=== PATIENT | female | born 1965 | race Caucasian/White ===

== ENCOUNTER → 2017-11-11 12:59 | Outpatient (CLI) | payer OTHER, MEDICAID, SELFPAY ==
--- NOTE | 2017-11-11 | DI.RAD.S_ITS ---
PROCEDURE: XR RIBS LT MIN 3V W CXR1V INDICATIONS: LEFT RIB PAIN/TRAUMA TECHNIQUE: 2 views of the left ribs were acquired, along with a single view chest. COMPARISON: None. FINDINGS: Surgical changes and devices: None. BB marker is present over the left lower rib cage. Bones and chest wall: No fractures or dislocations. No suspicious bony lesions. Overlying soft tissues appear unremarkable. Left L1 transverse process as articulating. Lungs and pleura: No pleural effusions or pneumothorax. Lungs appear clear. Mediastinum: Mediastinal contours appear normal. Heart size is normal. IMPRESSION: No displaced rib fractures. No apparent sequelae of any occult fracture. Dictated by: Aram Xie M.D. on 11/11/2017 at 13:30 Approved by: Aram Xie M.D. on 11/11/2017 at 13:33
== END ==
PROVIDERS: Family Provider Family Medicine; PCP Family Medicine; Visit Provider Family Medicine
DX: R07.81 Pleurodynia (principal)
CPT/HCPCS: 71101

== ENCOUNTER 2018-01-25 04:44 | Emergency (ER) | payer OTHER, MEDICAID, SELFPAY ==
[2018-01-25 04:49] VITALS: BP 158/67; PULSE 62; RESP 16; TEMP 36.3; O2SAT 100; BMI 23.5
--- NOTE | 2018-01-25 04:58 | DI.RAD.S_ITS ---
PROCEDURE: XR ANKLE RT MIN 3V INDICATIONS: fall pain 2 days ago TECHNIQUE: 3 views of the ankle were acquired. COMPARISON: None. FINDINGS: Bones: No acute fractures or dislocations. Ankle mortise is normally aligned. No suspicious bony lesions. Prominent dorsal beaking of the navicular is noted. There are old healed fractures in the distal one third of the tibial and fibular diaphyses, the tibial fracture also containing punctate radiodensities. Soft tissues: No tibiotalar joint effusion. Achilles tendon appears normal. IMPRESSION: No acute fracture. Dictated by: Aram Xie M.D. on 01/25/2018 at 8:19 Approved by: Aram Xie M.D. on 01/25/2018 at 8:22
--- NOTE | 2018-01-25 05:18 | ED_ITS ---
HPI - Extremity Injury (Lower) General Chief Complaint: Extremity Injury, Lower Stated Complaint: Right ankle pain, slipped on stairs Time Seen by Provider: 01/25/18 04:54 Source: patient Mode of arrival: ambulatory Limitations: no limitations History of Present Illness HPI Narrative: Patient is a 52-year-old female who presents with right ankle pain. She says she injured it on some stairs he it was actually dragged and she scraped it. She did not roll it or trip or fall. His she has been ambulatory on it. This evening she felt like she needed to crack she heard a pop she feels like it is more swollen. She denies any worsening numbness or tingling in her foot. She has chronic back problems and has issues with her feet at baseline. She is ambulatory tonight as well. MD complaint: ankle injury Severity: mild Relieving factors: nothing Related Data Home Medications Medication Instructions Recorded Confirmed levothyroxine [Synthroid] 75 mcg PO QAM #0 05/31/11 tizanidine 4 mg PO TIDP PRN #0 10/06/16 cholecalciferol (vitamin D3) 2,000 iu PO QDAY #0 10/15/16 [Vitamin D3] Previous Rx's Medication Instructions Recorded hydrocodone-acetaminophen [[place]] 1 - 2 tab PO Q4HP PRN #60 tab 10/15/16 hydroxyzine pamoate [Vistaril] 25 mg PO Q6HP PRN #20 cap 10/15/16 naproxen [Naprosyn] 500 mg PO BID #60 tab 10/15/16 cephalexin [Keflex] 500 mg PO Q6H 7 Days #0 cap 01/22/17 prednisone 40 mg PO AMCC 4 Days #0 tab 01/22/17 Allergies Allergy/AdvReac Type Severity Reaction Status Date / Time wool [WOOL] Allergy Intermediate HIVES Verified 01/25/18 04:55 green pepper [GREEN PEPPER] AdvReac Severe burping Verified 01/25/18 04:55 morphine [MORPHINE] AdvReac Severe VOMITING, Verified 01/25/18 04:55 MY BODY ADDICTS TO VERY QUICKLY Review of Systems Review of Systems GENERAL: Denies chills,fever HEENT: Denies throat pain RESPIRATORY: Denies dyspnea, cough, wheezing CARDIOVASCULAR: Denies chest pain, palpitations GASTROINTESTINAL: Denies nausea, vomiting MUSCULOSKELETAL: See HPI SKIN: No rash, no laceration, no pruritus NEUROLOGIC: Denies weakness, dizziness, headache, numbness 8 point review of systems is negative except for those stated above and HPI [facility] Medical History Healthy adult (Acute) Social History Smoking Status: Former smoker Exam Initial Vital Signs Initial Vital Signs: Vital Signs Temperature 97.4 F L 01/25/18 04:49 Pulse Rate 62 01/25/18 04:49 Respiratory Rate 16 01/25/18 04:49 Blood Pressure 158/67 H 01/25/18 04:49 Pulse Oximetry 100 01/25/18 04:49 GENERAL: Well-appearing, well-nourished and in no acute distress. CARDIOVASCULAR: peripheral pulses in tact, cap refill <2 sec RESPIRATORY: No respiratory distress, speaks in full sentences without difficulty EXTREMITIES: Normal range of motion, no clubbing or edema. Neurovascularly intact The right lower extremity: Tattoos are noted no gross bony deformities. No swelling appreciated. Able flex and extend without any difficulty. Pain medially about 3 cm superior malleoli. Distal pedal pulse intact NEUROLOGICAL: Cranial nerves II through XII grossly intact. Normal gait and speech. SKIN: Warm, dry, no petechiae, no rashes or lesions. Course Orders Ordered: ED Orders 01/25/18 04:58 XR ankle RT min 3V Stat Vital Signs - 8 hr 01/25/18 04:49 Temperature 97.4 F L Pulse Rate 62 Respiratory Rate 16 Blood Pressure 158/67 H Pulse Oximetry 100 MDM - Extremity Injury (Lower) Imaging Data Right ankle x-ray: My impression: No acute process no fracture identified Discharge Plan Departure Patient Disposition: Home, Self-Care Clinical Impression: Mild sprain of right ankle Discharge Date/Time: 01/25/18 05:29 Interventions: ED Discharge Assessment Last Done: 01/25/18 05:29 Instructions: Ankle Sprain Activity Restrictions/Additional Instructions: *You have been diagnosed with right ankle sprain *What to do: Increase activity as tolerated, ice 20 min at a time if needed to help with swelling, elevated *Continue to take medications as directed Ibuprofen 600 mg every 6 hr if needed for pain *Follow up with your primary care provider in 2-3 days *Return to ER if you should have any new, worsening or concerning symptoms Prescriptions: No Action levothyroxine [Synthroid] 75 MCG tablet 75 mcg PO QAM Qty: 0 RF: 0 tizanidine 4 MG tablet 4 mg PO TIDP PRNQty: 0 RF: 0 cholecalciferol (vitamin D3) [Vitamin D3] 2,000 UNIT capsule 2,000 iu PO QDAY Qty: 0 RF: 0 hydrocodone-acetaminophen [[place]] 5 MG/325 MG tablet 1 - 2 tab PO Q4HP PRNQty: 60 RF: 0 naproxen [Naprosyn] 500 MG tablet 500 mg PO BID Qty: 60 RF: 0 hydroxyzine pamoate [Vistaril] 25 MG capsule 25 mg PO Q6HP PRNQty: 20 RF: 0 prednisone 20 MG tablet 40 mg PO AMCC 4 Days Qty: 0 RF: 0 cephalexin [Keflex] 500 MG capsule 500 mg PO Q6H 7 Days Qty: 0 RF: 0
== END 2018-01-25 05:29 | disposition home or self-care (01) ==
PROVIDERS: Emergency Provider Emergency Medicine; Family Provider Family Medicine; PCP Family Medicine
DX: S93.401A Sprain of unspecified ligament of right ankle, initial encounter (principal); W18.40XA Slipping, tripping and stumbling without falling, unspecified, initial encounter
CPT/HCPCS: 73610; 99282; 99283

== ENCOUNTER → 2018-02-16 14:20 | Outpatient (CLI) | payer OTHER, SELFPAY ==
--- NOTE | 2018-02-16 | DI.RAD.S_ITS ---
PROCEDURE: FL BARIUM SWALLOW W SPEECH INDICATIONS: MUSCLE NECK STRAIN TECHNIQUE: Examination was conducted in conjunction with speech pathology per standard protocol. In the lateral projection, filming was performed of the patient swallowing. AP projection filming may also be performed with patient swallowing. COMPARISON: [facility], CR, XR CERVICAL SPINE 2 OR 3 VIEWS, 09/03/2017, 11:20. FINDINGS: Function: The oral preparatory phase appears normal, with proper containment. The subsequent oral propulsive phase, pharyngeal phase, and esophageal phase of swallowing also appear normal with all proffered substances. No laryngotracheal penetration or aspiration. No pathologic vallecular pooling. Morphology: No cricopharyngeal bar is identified. No cervical esophageal webs. No Zenker's diverticulum. No strictures. Note is made of a C5-6 normally positioned interbody disc prosthesis. IMPRESSION: Normal examination. Normal positioning of a interbody disc prosthesis at C5-6. No impingement against the posterior border of the esophageal lumen. Please also refer to the dedicated speech therapy swallowing evaluation report which will be independently generated. Dictated by: Cole Burrows M.D. on 02/16/2018 at 15:11 Approved by: Cole Burrows M.D. on 02/16/2018 at 15:12
== END ==
PROVIDERS: PCP Family Medicine; Visit Provider Orthopaedic Surgery
DX: S16.1XXA Strain of muscle, fascia and tendon at neck level, initial encounter (principal); R13.10 Dysphagia, unspecified
CPT/HCPCS: 74230; 92611

== ENCOUNTER 2018-03-07 14:22 | Outpatient (RCR) | payer OTHER, SELFPAY | END 2019-01-06 14:19 | disposition home or self-care (01) | LOC: SP 14:22 | PROVIDERS: PCP Family Medicine; Visit Provider Orthopaedic Surgery | DX: S16.1XXD Strain of muscle, fascia and tendon at neck level, subsequent encounter (principal); S13.161A Dislocation of C5/C6 cervical vertebrae, initial encounter; S13.4XXA Sprain of ligaments of cervical spine, initial encounter; S13.8XXA Sprain of joints and ligaments of other parts of neck, initial encounter | CPT/HCPCS: 92507 ==

== ENCOUNTER → 2018-07-28 14:30 | Outpatient (CLI) | payer OTHER, MEDICAID, SELFPAY ==
--- NOTE | 2018-07-28 | DI.RAD.S_ITS ---
PROCEDURE: XR CHEST 2V INDICATIONS: COUGH TECHNIQUE: 2 views of the chest were acquired. COMPARISON: [facility], , THORACIC SPINE 3 VIEWS, 02/27/2009, 9:00. FINDINGS: Surgical changes and devices: None. Lungs and pleura: There is a 1 cm nodules in the left midlung zone. No pleural effusions or pneumothorax. Mediastinum: Mediastinal contours are normal. Heart size is normal. Bones and chest wall: No suspicious bony abnormalities. Soft tissues appear unremarkable. IMPRESSION: 1. A 1 cm nodule in the left midlung zone. Recommend chest CT with contrast for followup evaluation to rule out mass. Dictated by: Melva Mackay M.D. on 07/28/2018 at 17:10 Approved by: Melva Mackay M.D. on 07/28/2018 at 17:12
== END ==
PROVIDERS: PCP Family Medicine; Visit Provider Family Medicine
DX: R05 Cough (principal); R91.1 Solitary pulmonary nodule
CPT/HCPCS: 71046

== ENCOUNTER 2018-07-29 13:30 | Outpatient (RCR) | payer OTHER, SELFPAY ==
--- NOTE | 2018-12-29 15:19 | ST.OPDS ---
Care Team Visit Care Team Role Provider Type Wenceslao Vance MD Primary Care Provider Physician Address: [address] [facility] [place], [address] Carl Jhaveri MD Attending Provider Physician Address: [address] [place] [address], [id number] IMPORT/EXPORT SPECIALIST Treatment Note IMPORT/EXPORT SPECIALIST Treatment Note Start: 06/23/18 12:18 Freq: Status: Active Protocol: Document 12/29/18 15:14 LNK (Rec: 12/29/18 15:19 LNK [id number]) Speech Pathology Treatment Note Visit Type Note Type Discharge Summary General Information General Information The pt was seen for a voice evaluation on speech therapy from 03/07/18-07/29/18 inflammation. Subjective Chief Complaint(s) Voice Patient/Caregiver Compliance with Home Poor Exercise Program Assessment Progress Towards Goals Delayed Progress Appropriate for Discharge Assessment of Improvement Pt has not been seen since July 2018. No orders to resume tx. Pt discharged. Plan Amount of Therapy Recommended No Further Therapy Frequency of Treatment No Further Therapy Therapy Recommendations Discharge from Speech Therapy
== END 2018-07-30 12:05 ==
LOC: SP 13:30
PROVIDERS: PCP Family Medicine; Visit Provider Otolaryngology
DX: R49.0 Dysphonia (principal)
CPT/HCPCS: 92507

== ENCOUNTER → 2018-08-12 12:11 | Outpatient (CLI) | payer OTHER, MEDICAID, SELFPAY ==
--- NOTE | 2018-08-12 | DI.MG.S_ITS ---
BILATERAL DIGITAL SCREENING MAMMOGRAM 3D/2D WITH CAD: 08/12/2018 CLINICAL: Routine screening. Family history of breast cancer. Comparison is made to exams dated: 12/30/2015 mammogram, 09/11/2011 mammogram, and 09/09/2010 mammogram - [facility]. The tissue of both breasts is heterogeneously dense. This may lower the sensitivity of mammography. Current study was also evaluated with a Computer Aided Detection (CAD) system. No significant masses, calcifications, or other findings are seen in either breast. There has been no significant interval change. IMPRESSION: NEGATIVE There is no mammographic evidence of malignancy. A 1 year screening mammogram is recommended. This exam was interpreted at Station ID: [id number]. NOTE: For mammograms, a report in lay terms will be sent to the patient. Approximately 15% of breast malignancies will not be visualized mammographically. In the management of a palpable breast mass, a negative mammogram must not discourage biopsy of a clinically suspicious lesion. Electronically Signed By: Calvin adames/anthony:08/12/2018 12:57:53 letter sent: Normal Exam ACR BI-RADS Category 1: Negative [id number]
== END ==
PROVIDERS: PCP Family Medicine; Visit Provider Family Medicine
DX: Z12.31 Encounter for screening mammogram for malignant neoplasm of breast (principal); Z80.3 Family history of malignant neoplasm of breast
CPT/HCPCS: 77063; 77067

== ENCOUNTER → 2018-08-15 10:59 | Outpatient (CLI) | payer OTHER, MEDICAID, SELFPAY ==
--- NOTE | 2018-08-15 11:42 | DI.CT.S_ITS ---
PROCEDURE: CT CHEST W CON INDICATIONS: LUNG NODULE TECHNIQUE: After the administration of intravenous contrast, 5 mm thick sections acquired from the pulmonary apices to the posterior costophrenic angles. 7 mm thick coronal and sagittal MIP reformats were acquired. For radiation dose reduction, the following was used: automated exposure control, adjustment of mA and/or kV according to patient size. COMPARISON: [facility], CT, CT-IVP, 11/19/2010, 10:58. [facility], CT, KIDNEY/ URETER/BLADDER, 12/10/2010, 13:24. [facility], CT, ABDOMEN/PELVIS WITH CONTRAST, 09/04/2015, 21:04. [facility], CR, XR CHEST 2V, 07/28/2018, 14:38. FINDINGS: Image quality: Excellent. Lungs and pleura: The 1 cm nodular density in the left midlung zone seen on the chest x-ray is caused by callus related to a nonacute fracture of the left fourth costochondral junction fracture. No acute air space opacities. No pleural effusions or pneumothorax. Central and peripheral airways are patent and normal in caliber. Mediastinum: Heart size is normal. No pericardial effusion. No mediastinal or hilar adenopathy by size criteria. Thoracic aorta and central pulmonary arteries are normal in size. Esophagus is normal in caliber. No hiatal hernia. Bones and chest wall: No suspicious bony lesions. Note is made of left fourth, sixth and seventh rib fractures at the costochondral junctions. No vertebral body compression fractures. No axillary or supraclavicular adenopathy by size criteria. Thyroid gland is normal. Abdomen: There is a 1.4 cm indeterminate hypodensity in the anterior segment of the right hepatic lobe and a 1.2 cm, unchanged compared to 09/07/2015, likely benign. Visualized upper abdominal solid organs appear normal. Upper abdominal bowel loops are normal in caliber. IMPRESSION: 1. No lung masses. The 1 cm nodule seen on the chest x-ray is caused by callus related to a nonacute left costochondral junction fracture. 2. Left anterior fourth, sixth and seventh rib fractures are noted. 3. Stable low density nodules in the liver are likely benign. Dictated by: Melva Mackay M.D. on 08/15/2018 at 13:04 Approved by: Melva Mackay M.D. on 08/15/2018 at 13:22
== END ==
PROVIDERS: PCP Family Medicine; Visit Provider Family Medicine
DX: R91.1 Solitary pulmonary nodule (principal); S22.42XA Multiple fractures of ribs, left side, initial encounter for closed fracture; K76.9 Liver disease, unspecified
CPT/HCPCS: 71260; Q9967

== ENCOUNTER → 2018-09-20 15:00 | Outpatient (CLI) | payer OTHER, MEDICAID, SELFPAY ==
--- NOTE | 2018-09-20 | DI.CT.S_ITS ---
PROCEDURE: CT SINUS SCREEN WO CON INDICATIONS: chronic sinusitis, unspec TECHNIQUE: Noncontrast 3.0 mm axial images acquired from the frontal sinuses to the mid-sella, with coronal and sagittal reformats. For radiation dose reduction, the following was used: automated exposure control, adjustment of mA and/or kV according to patient size. COMPARISON: None. FINDINGS: Image quality: Excellent. Maxillary Sinuses: No bony remodeling or destruction. Sinuses are clear. Ethmoid Air Cells: No bony remodeling or destruction. Sinuses are clear. Sphenoid Sinuses: No bony remodeling or destruction. Sinuses are clear. Frontal Sinuses: No bony remodeling or destruction. Sinuses are clear. Ostiomeatal Complexes: Ostiomeatal complexes are patent. No Dennis cells. Miscellaneous: Visualized intra-orbital contents are normal. No kayleen bullosa or paradoxical turbinate curvature. There is moderate rightward nasal septal deviation. IMPRESSION: No significant active paranasal sinus disease is seen. Moderate rightward nasal septal deviation. Dictated by: Mat Agosto M.D. on 09/20/2018 at 15:12 Approved by: Mat Agosto M.D. on 09/20/2018 at 15:13
== END ==
PROVIDERS: PCP Family Medicine; Visit Provider Family Medicine
DX: J32.9 Chronic sinusitis, unspecified (principal); J34.2 Deviated nasal septum
CPT/HCPCS: 70486

== ENCOUNTER → 2018-10-05 15:56 | Outpatient (REF) | payer OTHER, MEDICAID, SELFPAY | LOC: LAB 15:56 | PROVIDERS: PCP Family Medicine; Visit Provider Internal Medicine | DX: Z72.51 High risk heterosexual behavior (principal) | CPT/HCPCS: 87070; 87205 ==

== ENCOUNTER → 2018-10-17 15:02 | Outpatient (CLI) | payer OTHER, MEDICAID, SELFPAY ==
--- NOTE | 2018-10-17 | DI.US.S_ITS ---
PROCEDURE: US RENAL COMPLETE INDICATIONS: HISTORY OF KIDNEY STONES/DYSURIA TECHNIQUE: Real-time scanning was performed of the kidneys and bladder, with image documentation. COMPARISON: [facility], CT, ABDOMEN/PELVIS WITH CONTRAST, 12/29/2014, 15:36. [facility], US, RENAL COMPLETE, 05/30/2014, 15:10. FINDINGS: Kidneys: Right kidney is mildly diminutive in size compared to the left. Right kidney measures 8.3 cm long; left kidney measures 10.8 cm long. Right renal cortical thickness is 0.7 cm; left renal cortical thickness is 0.9 cm. right renal cortex is irregularly thinned and mildly diffusely hyperechoic compared to liver and to the contralateral side. No hydronephrosis or nephrolithiasis. No suspicious solid mass lesions. Bladder: Pre-void bladder volume is 25 mL. Post-void residual is zero mL. Limited evaluation of the urinary bladder secondary to incomplete distention. Pre-void images demonstrate no obvious intraluminal masses or stones. On pre-void images, neither ureteral jets are noted with color Doppler interrogation. (Of note, ureteral jets may not be detectable in up to 25% of cases due to insufficient differences in specific gravity between ureteral and bladder urine). Miscellaneous: No free pelvic fluid. IMPRESSION: 1. No obstructive uropathy or visible intrarenal calcification. Small urinary calculi may be not well detected by ultrasound. 2. Asymmetrically diminutive right kidney with cortical thinning and echogenicity suggesting chronic medical renal disease or scarring. Dictated by: Sowmya Aguilar M.D. on 10/17/2018 at 16:31 Approved by: Sowmya Aguilar M.D. on 10/17/2018 at 16:36
== END ==
PROVIDERS: PCP Family Medicine; Visit Provider Family Medicine
DX: R30.0 Dysuria (principal); Z87.442 Personal history of urinary calculi
CPT/HCPCS: 76770

== ENCOUNTER → 2019-03-10 17:44 | Outpatient (CLI) | payer OTHER, SELFPAY ==
--- NOTE | 2019-03-10 17:46 | DI.MRI.S_ITS ---
PROCEDURE: MR LUMBAR SPINE WO CON INDICATIONS: Low back pain radiating into bilateral hips. Bilateral leg weakness and numbness TECHNIQUE: Noncontrast sagittal T1 spin echo and T2 fast echo, sagittal STIR, axial T1 and T2 fast spin echo through the lumbar spine. In cases with scoliosis, additional coronal T2 fast spin echo may be performed. COMPARISON: [facility], MR, L-SPINE WITHOUT CONTRAST, 08/10/2017, 16:46. FINDINGS: Image quality: Excellent. Alignment and Curvature: There is normal bony alignment. Bone Marrow: Marrow is of normal overall signal. No acute vertebral body compression fractures. Spinal Cord: Conus medullaris terminates at the L1-L2 level. Visualized cord demonstrates normal signal and size. Paraspinous Soft Tissues: No paravertebral masses. T12-L1: Minimal disc bulge. No canal stenosis or foraminal stenosis. L1-L2: Normal appearance L2-L3: Interval increase in diffuse disc bulge, moderate. Mild facet hypertrophy. Mild canal stenosis. Mild bilateral foraminal stenosis. L3-L4: Very minimal disc bulge. No canal stenosis. No foraminal stenosis. L4-L5: Unchanged appearance. Posterior annulus tear posterior disc bulge. Mild canal stenosis. Mild facet hypertrophy. No significant foraminal stenosis. L5-S1: Unchanged. Moderate chronic disc height loss. Unchanged broad-based disc protrusion. Mild canal stenosis. Mild facet hypertrophy. Mild right foraminal stenosis and moderate to severe left foraminal stenosis. The left L5 nerve root sleeve is flattened in the left foramen. IMPRESSION: 1. No significant interval change. 2. Canal stenosis is mild at L2-L3, L4-L5, and L5-S1. 3. Multilevel facet hypertrophy. 4. Moderate to severe left foraminal narrowing at L5-S1. Dictated by: Leonardo Holcomb M.D. on 03/13/2019 at 8:36 Approved by: Leonardo Holcomb M.D. on 03/13/2019 at 8:46
== END ==
PROVIDERS: PCP Family Medicine; Visit Provider Orthopaedic Surgery
DX: M51.16 Intervertebral disc disorders with radiculopathy, lumbar region (principal); M51.17 Intervertebral disc disorders with radiculopathy, lumbosacral region; R20.0 Anesthesia of skin; R29.898 Other symptoms and signs involving the musculoskeletal system; M48.061 Spinal stenosis, lumbar region without neurogenic claudication; M48.07 Spinal stenosis, lumbosacral region; S39.012D Strain of muscle, fascia and tendon of lower back, subsequent encounter
CPT/HCPCS: 72148

== ENCOUNTER → 2019-04-12 07:20 | Outpatient (CLI) | payer OTHER, MEDICAID, SELFPAY ==
--- NOTE | 2019-04-12 | DI.US.S_ITS ---
PROCEDURE: US ABDOMEN COMPLETE INDICATIONS: PAIN TECHNIQUE: Real-time scanning was performed of the abdominal and retroperitoneal organs, with image documentation. COMPARISON: [facility], US, US RENAL COMPLETE, 10/17/2018, 15:12. FINDINGS: Liver: Liver is normal in size and homogeneous in echotexture. Cluster of right hepatic lobe cyst measuring 1.5 cm. Gallbladder: No gallstones identified. Normal gallbladder wall. No pericholecystic fluid. Negative sonographic Brown sign. Biliary ducts: Intrahepatic bile ducts are non-dilated. Extrahepatic bile duct caliber measures 5.0 mm. Normal is 6-7 mm or less in diameter, or 10 mm or less post-cholecystectomy. Pancreas: Visualized portions of the pancreas are sonographically normal. Spleen: Spleen is normal in size and homogeneous in echotexture. Kidneys: Kidneys are normal in size and echotexture. Right kidney measures 9.8 cm long; left kidney measures 10.5 cm long. No hydronephrosis or nephrolithiasis. No solid masses. Aorta: Visualized aorta is normal in caliber at less than 3 cm. Iliacs: Proximal common iliac arteries are normal in caliber at less than 2.5 cm. IVC: Intrahepatic inferior vena cava is patent. Miscellaneous: No free abdominal fluid. IMPRESSION: 1. No source for pelvic pain identified. Dictated by: Richie Romo [facility] Interpreted: Ab Saldana MD on 04/12/2019 at 10:06 Approved by: Ab Saldana M.D. on 04/12/2019 at 11:33
--- NOTE | 2019-04-12 | DI.US.S_ITS ---
PROCEDURE: US PELVIC COMPLETE INDICATIONS: RIGHT PELVIC PAIN TECHNIQUE: Real-time scanning was performed of the pelvic organs, with image documentation. Additional endovaginal scanning was necessary due to incomplete visualization of the adnexal and endometrial structures by transabdominal scanning. COMPARISON: [facility], , PELVIC COMPLETE, 12/31/2014, 11:51. FINDINGS: Transabdominal scanning: Limited scanning through the kidneys shows no hydronephrosis. No pathologic free abdominal or pelvic fluid. Endovaginal scanning: Uterus: Uterus is normal in size at 7.2 x 3.5 x 4.4 cm. The endometrium measures 3.4 mm in combined thickness. Slight increase in size of intramural fibroid now measuring 3.5 x 3.1 x 4.4 cm Ovaries: Right ovary not visualized. Normal left ovary measuring 2.3 x 1.4 x 1.6 cm. IMPRESSION: Slight increase in size of intramural fibroid measuring up to 4.4 cm. Dictated by: Richie Romo [facility] Interpreted: Ab Saldana MD on 04/12/2019 at 10:07 Approved by: Ab Saldana M.D. on 04/12/2019 at 11:33
== END ==
PROVIDERS: PCP Family Medicine; Visit Provider Family Medicine
DX: R10.31 Right lower quadrant pain (principal); R10.2 Pelvic and perineal pain; D25.1 Intramural leiomyoma of uterus
CPT/HCPCS: 76700; 76830; 76856

== ENCOUNTER 2019-06-29 14:31 | Outpatient (CLI) | payer OTHER, SELFPAY ==
[2019-06-29] VITALS (8 sets, daily range): BP systolic 113–145; BP diastolic 72–99; PULSE 73–91; RESP 16; TEMP 36.8; O2SAT 97–98
--- NOTE | 2019-06-29 14:33 | DI.RAD.S_ITS ---
PROCEDURE: PAIN L/S TRANSFORAMINAL INJECT INDICATIONS: SPONDYLOSIS FINDINGS: Fluoroscopic spot filming was performed to verify placement of spinal needles at the L4-L5 level(s), as labeled on the films. Appropriate location(s) of the needle tip(s) was confirmed by injection of iodinated contrast. IMPRESSION: Fluoroscopy for pain management. Dictated by: Melva Mackay M.D. on 06/29/2019 at 16:16 Approved by: Melva Mackay M.D. on 06/29/2019 at 16:16
[2019-06-29] MEDS: fentaNYL 100 MCG/2 ML INJ 50 MCG IV (15:49)
[2019-06-29] MEDS: MIDAZOLAM 5 MG/5 ML VIAL IV (15:49)
[2019-06-29] MEDS: BUPIVACAINE 0.25% (PF) VIAL 2 ML INJ (15:53)
[2019-06-29] MEDS: BETAMETHASONE 30 MG/5 ML MDV 6 MG INJ (15:54)
[2019-06-29] MEDS: DEXAMETHASONE 10 MG/ML VIAL 20 MG INJ (15:54)
[2019-06-29] MEDS: IOPAMIDOL 15 ML VIAL 3 ML INJ (15:54)
--- NOTE | 2019-06-29 15:58 | PC.NURSE ---
ASSISTING PT OFF TABLE AND TRANSPORTING TO POST PROC AREA IN STABLE CONDITION. PASSING RN CARE OF PT OFF TO FRANCI Calderon RN.
--- NOTE | 2019-06-29 16:02 | P.PCN_ITS ---
Procedures Date/Time Date of procedure: 06/29/19 Time of procedure: 16:02 General Procedure description: PREOP DIAGNOSIS 1. FORMAINAL STENOSIS WITH LE SYMPTOMS POST OP DIAGNOSIS 1. FORMAINAL STENOSIS WITH LE SYMPTOMS PROCEDURES 1. FLUOROSCOPICALLY GUIDED CONTRAST CONTROLLED TRANSFORAMINAL EPIDURAL STEROID INJECTION - RIGHT L4/5 TFESI PHYSICIAN: Zaheer Mcnamara DO INDICATIONS: Nancy is referred by Dr. Peguero and Rajiv for treatment of Foraminal Stenosis with Right LE Symptoms FINDINGS Foraminal Nerve Root Compression secondary to disc disease and facet hypertrophy DESCRIPTION OF PROCEDURE: Following review of allergy and review of potential side effects and complications, including, but not necessarily limited to, infection, allergic reaction, local tissue breakdown, stroke, temporary or permanent nerve injury, paralysis, and possible , the patient indicated that the patient understood and agreed to proceed. An informed consent document was signed by the patient, witnessed by a nurse, and placed in the patient's chart. Additionally, other treatment options including medications, modalities, and physical therapy were reviewed with the patient. After review of previous anaesthesic history and IV conscious sedation the patient was deemed safe to proceed with todays procedure with IV conscious sedation as ASA class II designation. Safety time-out was performed to confirm patient ID, procedure to be performed and site of procedure. IV sedation was accomplished with a combination of 2mg of Versed and 50mcg of Fentanyl was administered by the RN after DO order, titrated to patient comfort during the c ourse of the procedure while the patient remained responsive to all verbal commands In the prone position following sterile prep and drape of the lumbar region, the Right L4/5 posterior neuroforamen was identified fluoroscopically. The skin was anesthetized via a 25-gauge 1.5-inch needle with 1% lidocaine solution. At this point, a 25-gauge 3.5-inch spinal needle was atraumatically introduced and advanced under fluoroscopic guidance through the posterior Right L4/5 neuroforamen to approximately the anterior aspect of the canal. Depth was confirmed on lateral view. Following negative aspiration, injection of approximately 1.5 cc of Isovue 200 under live fluoroscopy in the AP view confirmed excellent flow along the nerve root, into the epidural space without vascular or intrathecal uptake observed Radiological data, including multiple fluoroscopic views of the lumbosacral spine, reveal a spinal needle at the right L4/5 posterior neuroforamen. Subsequent views show flow of contrast material flowing superiorly and inferiorly along the nerve root confirming epidural flow. Subsequently, a test dose of 1.5 cc of 1% lidocaine solution was administered and patient was observed for two minutes for signs or symptoms of complications, including abdominal pain, shortness of breath, bilateral upper or lower extremity weakness, nausea and vomiting, prior to steroid injection. At this point, a total of 3cc or 20mg of dexamethasone and 6mg of betamethasone was injected without incident. The procedure tolerated the procedure well without signs or symptoms of complications prior to transfer to the recovery area continued monitoring without incident.The patient was then transferred to the recovery area where they were observed for an appropriate time after the injection. The patient reported a VAS score of 7 prior to the procedure and a post- procedure VAS of 0. Total Fluoroscopy Time: 20.9 seconds Total Conscious Sedation Time: 24min POST OP INSTRUCTIONS The patient was provided a Pain Log to continue to record their response to the target-specific procedure prior to follow-up visit with their referring physician. Additionally, specific post-injection care instructions and a contact number to our office were provided if concerns arise regarding possible complications associated with the procedure are suspected. Zaheer Mcnamara, Complications: none
--- NOTE | 2019-06-29 16:32 | PC.NURSE ---
Post procedure discharge note: Patient arrived at 1604. Awake and alert. VSS, O2 Sat WNL on Room air. Transferred from w/c to recliner independently. Pain level 0/10. Denied any unusual numbness or tingling to lower extremities. Discharge instructions reviewed with good understanding. discharged to home with friend. W/c to car at 1625
== END 2019-06-29 16:25 | disposition home or self-care (01) ==
PROVIDERS: PCP Family Medicine; Visit Provider Physical Medicine & Rehabilitation
DX: M48.061 Spinal stenosis, lumbar region without neurogenic claudication (principal); M51.16 Intervertebral disc disorders with radiculopathy, lumbar region
CPT/HCPCS: 64483; 99152; J0702; J1100; J2250; J3010

== ENCOUNTER → 2019-07-05 14:15 | Outpatient (CLI) | payer OTHER, SELFPAY ==
--- NOTE | 2019-07-05 | DI.CT.S_ITS ---
PROCEDURE: CT ABDOMEN PELVIS WO/W CON INDICATIONS: Other microscopic hematuria TECHNIQUE: Optional 5 mm thick noncontrast images acquired from the diaphragm to the symphysis pubis. After the administration of intravenous contrast, 5 mm thick images acquired from the diaphragm to the symphysis pubis after a 10-minute delay. 2 mm thick coronal and sagittal reformats were then performed of the kidneys and ureters. For radiation dose reduction, the following was used: automated exposure control, adjustment of mA and/or kV according to patient size. COMPARISON: [facility], CT, ABDOMEN/PELVIS WITH CONTRAST, 09/04/2015, 21:04. FINDINGS: Image quality: Excellent. Lung bases: Lung bases are clear. Heart size is normal. Urinary system: The kidneys are asymmetric in size, relatively atrophic on the right with irregular cortical margination, without hydronephrosis or nephrolithiasis on pre-contrast images. This pattern has been chronically present including on CT scanning from August of 2015 without appreciable worsening. No perinephric fat stranding. There is normal bilateral renal enhancement. Renal calyces appear normal in morphology when filled with contrast. Opacified portions of both ureters demonstrate normal caliber. Bladder wall thickness is normal. No calcified bladder stones. Other solid organs: Liver is normal in size and enhancement. Gallbladder appears normal. Biliary system is non dilated. Pancreas enhances normally. Spleen is normal in size and enhancement. No adrenal nodules. Peritoneum and bowel: Bowel loops demonstrate normal wall thickness and caliber. No free fluid or air. Nodes and vessels: No retroperitoneal or mesenteric adenopathy by size criteria. Aorta and inferior vena cava are normal in size. Abdominal wall: No ventral hernias. Pelvis: No pathologic free pelvic fluid. No inguinal hernias or adenopathy. Bones: No suspicious bony lesions. No vertebral body compression fractures. IMPRESSION: Source of hematuria is not found. There is asymmetric atrophy with renal cortical irregularity, chronic in appearance, involving the right kidney when compared to normal appearance on the left. No hydronephrosis or nephrolithiasis is found, no urothelial or renal cortical mass is identified. Dictated by: Cole Burrows M.D. on 07/05/2019 at 16:02 Approved by: Cole Burrows M.D. on 07/05/2019 at 16:05
== END ==
PROVIDERS: PCP Family Medicine; Visit Provider Urology
DX: R31.29 Other microscopic hematuria (principal)
CPT/HCPCS: 74178

== ENCOUNTER → 2019-11-01 12:47 | Outpatient (CLI) | payer OTHER, SELFPAY ==
--- NOTE | 2019-11-01 12:51 | DI.RAD.S_ITS ---
PROCEDURE: XR LUMBAR SPINE MIN 4V INDICATIONS: LB and hip pain TECHNIQUE: 5 views of the lumbar spine acquired. COMPARISON: [facility], CR, L-SPINE 4V PLUS BENDING, 05/19/2011, 15:35. [facility], CR, L-SPINE 4V PLUS BENDING, 07/18/2010, 15:04. FINDINGS: Bones: 5 nonrib-bearing vertebrae are present. There is normal bony alignment. Note is made of a moderate degree of degenerative disc disease at L2-3 and L5 S1, without subluxation. The L2-3 level degenerative changes have progressed appreciably from 2010. No vertebral body compression fractures. No suspicious bony lesions. Soft tissues: Overlying bowel gas pattern is normal. No suspicious soft tissue calcifications. Flexion/extension: There is normal range of motion, with preserved normal alignment. IMPRESSION: Worsening degenerative disc disease along the lumbosacral spine. At L5-S1 there is moderate to moderately severe facet osteoarthritis superimposed on degenerative disc disease to the degree that spinal and foraminal stenosis at this level may be present. Dictated by: Cole Burrows M.D. on 11/01/2019 at 14:14 Approved by: Cole Burrows M.D. on 11/01/2019 at 14:15
== END ==
PROVIDERS: PCP Family Medicine; Referring Provider Physical Medicine & Rehabilitation; Visit Provider Physical Medicine & Rehabilitation
DX: M51.16 Intervertebral disc disorders with radiculopathy, lumbar region (principal); M51.17 Intervertebral disc disorders with radiculopathy, lumbosacral region; M47.26 Other spondylosis with radiculopathy, lumbar region; M47.27 Other spondylosis with radiculopathy, lumbosacral region; M25.559 Pain in unspecified hip
CPT/HCPCS: 72110; 99213

== ENCOUNTER → 2019-11-21 12:49 | Outpatient (CLI) | payer OTHER, MEDICAID, SELFPAY ==
--- NOTE | 2019-11-21 | DI.RAD.S_ITS ---
PROCEDURE: XR FOOT LT MIN 3V INDICATIONS: left foot pain TECHNIQUE: 3 views of the foot were acquired. COMPARISON: [facility], , FOOT 3V LEFT, 01/21/2012, 7:48. FINDINGS: Bones: No fractures or dislocations. No suspicious bony lesions. Plantar calcaneal spur. Diffuse hindfoot midfoot sclerosis and spurring. Mild first MTP joint degeneration. Second toe PIP joint generation also unchanged Soft tissues: No tibiotalar joint effusion. Achilles tendon appears normal. IMPRESSION: Diffuse degenerative changes as above. If the patient's pain or other symptoms persist, consider further evaluation with MRI Dictated by: Candido Gonzalez M.D. on 11/21/2019 at 14:17 Approved by: Candido Gonzalez M.D. on 11/21/2019 at 14:20
[2019-11-21 14:51] LABS: Add Manual Diff / Slide Review NO; Basophils Absolute Auto 100 /uL (0-100); Eosinophils Absolute Auto 300 /uL (0-450); Eosinophils Percent Auto 5.2 % (2-4); Hematocrit 39.1 % (36-46); Hemoglobin 13.3 g/dL (12.0-16.0); Lymphocytes Absolute Auto 1800 /uL (1100-4500); Lymphocytes Percent Auto 27.5 % (25-40); Mean Corpuscular HGB Conc 34.1 % (30-36); Mean Corpuscular Hemoglobin 30.4 PG (26-34); Mean Corpuscular Volume 89.2 fL (80-100); Monocytes Absolute Auto 600 /uL (0-900); Monocytes Percent Auto 8.9 % (3-14); Neutrophils Absolute Auto 3800 /uL (1500-7000); Neutrophils Percent Auto 57.4 % (50-75); Platelet Count 244 X10^3/uL (150-400); Red Blood Cell Count 4.38 X10^6/uL (4.0-5.2); Red Cell Distribution Width 13.5 % (11.6-14.8); White Blood Cell Count 6.7 X10^3/uL (4.5-11.0)
[2019-11-21 15:01] LABS: Alanine Aminotransferase 15 IU/L (<35); Albumin 4.2 g/dL (3.5-5.0); Albumin Globulin Ratio 1.6 (1.0-2.8); Alkaline Phosphatase 63 U/L (38-126); Aspartate Aminotransferase 23 IU/L (14-36); BUN Creatinine Ratio 26.1 (6-22); Bilirubin Total 0.4 mg/dL (0.2-1.3); Blood Urea Nitrogen 23 mg/dL (7-17); Calcium 9.6 mg/dL (8.4-10.2); Carbon Dioxide 27 mmol/L (22-32); Chloride 108 mmol/L (98-107); Cholesterol 245 mg/dL (140-199); Estimated Glomerular Filt Rate > 60.0 mL/min (>60); Globulin 2.6 g/dL (1.7-4.1); Glucose 86 mg/dL (70-100); HDL Cholesterol 38 mg/dL (40-60); HEMOLYSIS < 15 (0-50); LDL Cholesterol Calculated 177 mg/dL (<100); Potassium 4.2 mmol/L (3.4-5.1); Sodium 139 mmol/L (137-145); Total Protein 6.8 g/dL (6.3-8.2); Triglycerides 150 mg/dL (35-150)
[2019-11-21 16:01] LABS: Thyroid Stimulating Hormone 0.42 uIU/mL (0.47-4.68)
== END ==
PROVIDERS: PCP Family Medicine; Referring Provider Family Medicine; Visit Provider Family Medicine
DX: M79.672 Pain in left foot (principal); M77.32 Calcaneal spur, left foot; M19.072 Primary osteoarthritis, left ankle and foot; D84.9 Immunodeficiency, unspecified; I10 Essential (primary) hypertension; E03.9 Hypothyroidism, unspecified; E78.5 Hyperlipidemia, unspecified; M79.7 Fibromyalgia; R53.83 Other fatigue; Z79.899 Other long term (current) drug therapy
CPT/HCPCS: 36415; 73630; 80053; 80061; 84443; 85025

== ENCOUNTER → 2019-12-16 10:53 | Outpatient (CLI) | payer OTHER, MEDICAID, SELFPAY ==
[2019-12-17 08:15] LABS: COVID19 Sendout Not Detected (Not Detect)
== END ==
PROVIDERS: PCP Family Medicine; Visit Provider Nurse Practitioner
DX: Z01.812 Encounter for preprocedural laboratory examination (principal)
CPT/HCPCS: 87635

== ENCOUNTER 2019-12-19 13:15 | Outpatient (CLI) | payer OTHER, MEDICAID, SELFPAY ==
[2019-12-19] VITALS (10 sets, daily range): BP systolic 118–151; BP diastolic 66–112; PULSE 68–84; RESP 15–17; TEMP 36.4; O2SAT 97–99
--- NOTE | 2019-12-19 13:19 | DI.RAD.S_ITS ---
PROCEDURE: PAIN L/SI FACET INJ/BLK 1STL INDICATIONS: SPONDYLOSIS FINDINGS: Fluoroscopic spot filming was performed to verify placement of spinal needles at the right side at L4-5 and L5-S1 facet joint level(s), as labeled on the films. Appropriate location(s) of the needle tip(s) was confirmed by injection of iodinated contrast. IMPRESSION: Successful right-sided 2 level needle tip localization for facet joint steroid administration. Dictated by: Cole Burrows M.D. on 12/19/2019 at 14:32 Approved by: Cole Burrows M.D. on 12/19/2019 at 14:32
[2019-12-19] MEDS: fentaNYL 100 MCG/2 ML INJ 50 MCG IV (13:52)
[2019-12-19] MEDS: MIDAZOLAM 5 MG/5 ML VIAL IV (13:52)
--- NOTE | 2019-12-19 14:07 | P.PCN_ITS ---
Date/Time/Diagnoses Date of procedure: 12/19/19 Time of procedure: 14:07 Pre-procedure diagnosis: 1. FACET ARTHROPATHY, 2. AXIAL LBP, 3. MULTILEVEL DDD Post-procedure diagnosis: same Procedure Notes Procedure: 1. FLUOROSCOPICALLY GUIDED CONTRAST CONTROLLED FACET JOINT INJECTIONS RIGHT L4/5, L5/S1 Indications: Nancy is referred by Dr. Vance for treatment of Axial LBP Physician: Zaheer Mcnamara Total Fluoroscopy time (seconds): 5 Total sedation minutes: 24 Complications: none Procedure in detail & Post-procedure care: FINDINGS Multilevel Facet Arthropathy with Clinically significant axial LBP DESCRIPTION OF PROCEDURE Fluoroscopically guided, contrast-controlled right L4/5, L5/S1 facet joint injections. Following review of allergy and review of potential side effects and complications, including, but not necessarily limited to, infection, allergic reaction, local tissue breakdown, stroke, temporary or permanent nerve injury, paralysis, and possible , the patient indicated that the patient understood and agreed to proceed. An informed consent document was signed by the patient, witnessed by a nurse, and placed in the patient's chart. Additionally, other treatment options including medications, modalities, and physical therapy were reviewed with the patient. After review of previous anaesthesic history and IV conscious sedation the patient was deemed safe to proceed with today?s procedure with IV conscious sedation as ASA class II designation. Safety time-out was performed to confirm patient ID, procedure to be performed and site of procedure. IV sedation was accomplished with a combination of 2mg of Versed and 50mcg of Fentanyl was administered by the RN after DO order, titrated to patient comfort during the course of the procedure while the patient remained responsive to all verbal commands. In the prone position, following sterile prep and drape of the lumbar region, the posterior aspect of the right L4/5, L5/S1 facet joints were identified fluoroscopically. The skin was anesthetized via a 25-gauge 1.5-inch needle with 1% lidocaine solution into the corresponding facet joints. At this point, a 22- gauge 3.5-inch spinal needle was atraumatically introduced and advanced under fluoroscopic guidance into the corresponding facet joints. Following negative aspiration, injections of approximately 0.2-cc of Isovue 200 confirmed interarticular placement without vascular uptake. Radiological data, including multiple fluoroscopic views of the lumbosacral spine, reveal a spinal needle at the right L4/5, L5/S1 facet joints. Subsequent views show flow of contrast material both superiorly and inferiorly within the joint space without vascular or intrathecal uptake. At this point, a total of 0.5 cc including a mixture of 0.25cc Marcaine and 0.25cc betamethasone was injected without complication into each of the corresponding facet joints. The procedure tolerated the procedure well without signs or symptoms of complications prior to transfer to the recovery area continued monitoring without incident. The patient was then transferred to the recovery area where they were observed for an appropriate period of time after the injection. The patient reported a VAS score of 8 prior to the procedure and a post-procedure VAS of 0. POST OP INSTRUCTIONS The patient was provided a Pain Log to continue to record their response to the target-specific procedure prior to follow-up visit with their referring physician. Additionally, specific post-injection care instructions and a contact number to our office were provided if concerns arise regarding possible complications associated with the procedure are suspected.
[2019-12-19] MEDS: IOPAMIDOL 15 ML VIAL 3 ML INJ (14:16)
[2019-12-19] MEDS: BETAMETHASONE 30 MG/5 ML MDV 12 MG INJ (14:16)
[2019-12-19] MEDS: BUPIVACAINE 0.5% (PF) VIAL 2 ML INJ (14:16)
--- NOTE | 2019-12-19 14:16 | PC.NURSE ---
Pt returned to pre proc room via wc, stable transfer from wc to chair, resumed monitoring by this RN
--- NOTE | 2019-12-19 14:17 | PC.NURSE ---
Pt tolerated procedure well. No issues. 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 IV Fent and Midazolam given by KAREN Bowden, all others by Dr. Mcnamara.
--- NOTE | 2019-12-19 14:22 | CM.MNRNOTE ---
VSS stable upon transfer to KAREN Whitlock in post procedure room. Tolerate procedure well. All IV Fent and Versed given by KAREN Bowden, all other medications by Dr. Mcnamara.
== END 2019-12-19 14:32 | disposition home or self-care (01) ==
LOC: RAD 13:18
PROVIDERS: PCP Family Medicine; Referring Provider Physical Medicine & Rehabilitation; Visit Provider Physical Medicine & Rehabilitation
DX: M47.816 Spondylosis without myelopathy or radiculopathy, lumbar region (principal); M47.817 Spondylosis without myelopathy or radiculopathy, lumbosacral region; M54.5 Low back pain; M51.36 Other intervertebral disc degeneration, lumbar region; M51.37 Other intervertebral disc degeneration, lumbosacral region
CPT/HCPCS: 64493; 64494; 99152; J0702; J2250; J3010

== ENCOUNTER → 2020-01-03 11:08 | Outpatient (CLI) | payer OTHER, MEDICAID, SELFPAY ==
--- NOTE | 2020-01-03 | DI.RAD.S_ITS ---
PROCEDURE: XR FOOT RT MIN 3V INDICATIONS: RIGHT FOOT PAIN TECHNIQUE: 3 views of the foot were acquired. COMPARISON: [facility], CR, XR FOOT LT MIN 3V, 11/21/2019, 12:49. FINDINGS: Bones: No fractures or dislocations. No suspicious bony lesions. Mild 1st MTP and diffuse interphalangeal joint narrowing with periarticular osteophyte formation. Prominent dorsal osteophytes seen involving the talus tarsal navicular joint. Soft tissues: No tibiotalar joint effusion. Achilles tendon appears normal. IMPRESSION: Mild osteoarthritic changes. Dictated by: Richie Romo [facility] Interpreted: Candido Gonzalez MD on 01/03/2020 at 15:08 Approved by: Candido Gonzalez M.D. on 01/04/2020 at 11:43
== END ==
PROVIDERS: PCP Family Medicine; Referring Provider Family Medicine; Visit Provider Family Medicine
DX: M79.671 Pain in right foot (principal); M25.774 Osteophyte, right foot
CPT/HCPCS: 73630

== ENCOUNTER → 2020-03-21 16:02 | Outpatient (CLI) | payer OTHER, MEDICAID, SELFPAY ==
--- NOTE | 2020-03-21 16:04 | DI.RAD.S_ITS ---
PROCEDURE: XR KUB INDICATIONS: HEMATURIA, FLANK PAIN TECHNIQUE: One view of the abdomen acquired. COMPARISON: [facility], , KUB XRAY (1 VIEW ABDOMEN), 05/30/2014, 15:08. FINDINGS: Surgical changes and devices: None. Bowel: Bowel gas pattern is normal. Soft tissues: No suspicious abdominal calcifications. Visualized solid organ contours appear normal in size. Bones: No suspicious bony lesions. IMPRESSION: No definite radiopaque renal, ureteral or bladder calculi seen. Dictated by: Richie Romo [facility] Interpreted: Cole Burrows MD on 03/21/2020 at 16:57 Approved by: Cole Burrows M.D. on 03/22/2020 at 9:41
== END ==
PROVIDERS: PCP Student in an Organized Health Care Education/Training Program; Referring Provider Student in an Organized Health Care Education/Training Program; Visit Provider Student in an Organized Health Care Education/Training Program
DX: R31.9 Hematuria, unspecified (principal); R10.9 Unspecified abdominal pain
CPT/HCPCS: 74018

== ENCOUNTER 2020-05-23 16:00 | Outpatient (RCR) | payer OTHER, SELFPAY ==
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
--- NOTE | 2020-05-08 14:08 | PT.OPPOC ---
Physical, Occupational & Speech Therapy At [facility] Current Diagnoses Stress incontinence (female) (male) (05/08/20) Urge incontinence (05/08/20) Visit Care Team Role Provider Type Wenceslao Vance MD Primary Care Provider Physician Specialty: Family Practice Address: [facility], [facility] [place], [address] Email: [email or web address] Audrey Salter MD Attending Provider Non-Staff Referring Provider Specialty: Urology Address: [address] [place], [address] Email: Plan Of Care PT-OP-T Assessment and Plan Start: 03/07/20 13:40 Freq: Status: Active Protocol: Document 05/08/20 14:00 [facility] (Rec: 05/08/20 14:08 [facility] [id number]) Physical Therapy Assessment Goals Four Impairment Urinary stress and urge incontinence, pt is leaking multiple xms/day Etymology Professor Goal (LTG) With pelvic floor strengthing and NMES Nancy is able to decrease her leakage from constantly throughout the day to 1-2 xms per day only making it easier for her to engage in ADL's and general activities. No change Three Impairment Increased LBP/spasm with pelvic floor contraction/ difficulty isolating Short Term Goal (STG) With use a NMES for pelvic floor contractions Nancy is able to use neuro re-education to help her isolate her pelvic floor without lumbar spine activation. No change STG Duration 5 weeks Two Impairment Pelvic organ prolapse with c/o heaviness and pressure Grade 3 Cystocele Etymology Professor Goal (LTG) With improved strength of the pelvic floor Nancy will have decreased c/o pelvic pressure and heaviness and will have decreased c/o pain with activities such as bending, lifting and squating. No change LTG Duration 8 weeks One Impairment decresaed pelvic floor muscle strength Etymology Professor Goal (LTG) Increase pelvic floor muscle strength to 4/5 in order to decrease stress incontinence with ADL's Some progress with pelvic floor strength, pt stil experiencing leakage with bending and lifting activities . She also experiences sudden urges with loss of urine LTG Duration 8 weeks Progress Towards Goals Progress Towards Goals Slow Progress due to Medical Issues Progress Comments slow progress with UTI Assessment Summary Assessment Nancy has been working on pelvic floor strengthening in PT to help with bladder support and decreased leakage. Progress has been slow as Nancy had a few weeks with a UTI and is now working on decreasing her bladder medication. This has increased her leakage. She is having a cystoscopy and pessary fitting next month. She has 3 visits left in PT for strengthening and home program instruction Physical Therapy Plan Frequency and Duration Frequency of Treatment 1x/Week Duration of Treatment 8 weeks Plan of Care Start Date 05/08/20 Plan of Care End Date 06/27/20 Therapeutic Interventions Therapeutic Interventions Home Exercise Program, Neuromuscular Re-education, Patient/Caregiver Education, Self-Care/Home Management, Therapeutic Exercises Modalities Biofeedback Plan of Care Dates Plan of Care Start Date 05/08/20 Plan of Care End Date 06/27/20 Electronically Signed by: Audrey Chapin, PT 05/08/20 [id number] Please Sign and Return: I have reviewed this Plan of Care and certify that the skilled therapy services above are required to meet the patient?s needs. Physician Signature Date Printed Name and Credentials Clinical Instructor Signature Printed Name and Credentials
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
== END 2020-07-04 08:45 ==
LOC: PHYS 16:00
PROVIDERS: PCP Family Medicine; Referring Provider Urology; Visit Provider Urology
DX: N39.3 Stress incontinence (female) (male) (principal); N39.41 Urge incontinence
CPT/HCPCS: 97110; 97112; 97161; 97535

== ENCOUNTER → 2020-06-26 15:11 | Outpatient (CLI) | payer OTHER, MEDICAID, SELFPAY ==
--- NOTE | 2020-06-26 | DI.US.S_ITS ---
PROCEDURE: US PELVIC COMPLETE INDICATIONS: PELVIC AND PERINEAL PAIN TECHNIQUE: Real-time scanning was performed of the pelvic organs, with image documentation. Additional endovaginal scanning was necessary due to incomplete visualization of the adnexal and endometrial structures by transabdominal scanning. COMPARISON: [facility], , US PELVIC COMPLETE, 04/12/2019, 7:54. FINDINGS: Transabdominal scanning: Limited scanning through the kidneys shows mild atrophy of the right kidney measuring 8.2 cm with renal cortical thinning. No pathologic free abdominal or pelvic fluid. Endovaginal scanning: Uterus: Uterus is normal in size at 7.9 x 4.2 x 3.3 cm. The endometrium measures 2.4 mm in combined thickness. No significant interval change in appearance or size of intramural fibroid measuring 3.7 x 3.3 x 2.8 cm. Ovaries: Right ovary measures 1.6 x 1.3 x 1.2 cm and the left 2.7 x 2.5 x 1.4 cm. Simple left ovarian cyst measuring 9 mm. Color-flow Doppler demonstrates bilateral intrinsic ovarian blood flow. IMPRESSION: 1. Stable appearance of anterior intramural fibroid measuring up to 3.7 cm. 2. 9 mm simple left ovarian cyst. 3. Atrophy with right renal cortical thinning. Dictated by: Richie Romo [facility] Interpreted: Jennifer Smalls MD on 06/26/2020 at 16:37 Approved by: Jennifer Smalls MD, PhD on 06/26/2020 at 16:54
--- NOTE | 2020-06-26 | DI.CT.S_ITS ---
PROCEDURE: CT ABDOMEN PELVIS WO/W CON INDICATIONS: Pelvic and perineal pain. Gross hematuria. TECHNIQUE: Optional 5 mm thick noncontrast images acquired from the diaphragm to the symphysis pubis. After the administration of intravenous contrast, 5 mm thick images acquired from the diaphragm to the symphysis pubis after a 10-minute delay. 2 mm thick coronal and sagittal reformats were then performed of the kidneys and ureters. For radiation dose reduction, the following was used: automated exposure control, adjustment of mA and/or kV according to patient size. COMPARISON: [facility], CT, CT ABDOMEN PELVIS WO/W CON, 07/05/2019, 14:24. FINDINGS: Image quality: Excellent. Lung bases: Lung bases are clear. Heart size is normal. Small hiatal hernia. Urinary system: Three small nonobstructive stones are seen in left kidney measuring 2-4 mm. There is a tiny 1 mm stone in right kidney. No hydronephrosis. Right kidney is decreased in size with cortical thinning consistent with mild atrophy. There is normal bilateral renal enhancement. Renal calyces appear normal in morphology when filled with contrast. Small low-density cortical nodules in kidneys bilaterally are most likely renal cysts. Opacified portions of both ureters demonstrate normal caliber. Bladder wall thickness is normal. No calcified bladder stones. Prostate is enlarged. Other solid organs: Liver is normal in size and enhancement. A couple of low-density nodules in the liver are identified, most likely hepatic cysts or hemangiomas. Gallbladder is normal. Biliary system is non dilated. Pancreas enhances normally. Spleen is normal in size and enhancement. No adrenal nodules. Peritoneum and bowel: Bowel loops demonstrate normal wall thickness and caliber. No free fluid or air. Nodes and vessels: No retroperitoneal or mesenteric adenopathy by size criteria. Aorta and inferior vena cava are normal in size. Abdominal wall: No ventral hernias. Pelvis: No pathologic free pelvic fluid. No inguinal hernias or adenopathy. Bones: No suspicious bony lesions. No vertebral body compression fractures. Severe degenerative disc disease at L2-L3 and L5-S1. IMPRESSION: 1. Nephrolithiasis bilaterally. No hydronephrosis. 2. Mild right renal atrophy. 3. Small low-density cortical nodules in kidneys are most likely cysts. 4. Two low-density nodules in liver are probably cysts or hemangiomas. Dictated by: Melva Mackay M.D. on 06/26/2020 at 17:29 Approved by: Melva Mackay M.D. on 06/26/2020 at 18:05
== END ==
PROVIDERS: PCP Student in an Organized Health Care Education/Training Program; Referring Provider Student in an Organized Health Care Education/Training Program; Visit Provider Student in an Organized Health Care Education/Training Program
DX: R10.2 Pelvic and perineal pain (principal); R82.2 Biliuria; D25.1 Intramural leiomyoma of uterus; N83.202 Unspecified ovarian cyst, left side
CPT/HCPCS: 74178; 76830; 76856

== ENCOUNTER → 2020-08-01 16:15 | Outpatient (CLI) | payer OTHER, MEDICAID, SELFPAY ==
--- NOTE | 2020-08-01 | DI.MG.S_ITS ---
BILATERAL DIGITAL SCREENING MAMMOGRAM 3D/2D WITH CAD: 08/01/2020 CLINICAL: Routine screening. Family history of breast cancer. Comparison is made to exams dated: 08/12/2018 mammogram, 12/30/2015 mammogram, and 09/11/2011 mammogram - [facility]. The tissue of both breasts is heterogeneously dense. This may lower the sensitivity of mammography. Current study was also evaluated with a Computer Aided Detection (CAD) system. No significant masses, calcifications, or other findings are seen in either breast. There has been no significant interval change. IMPRESSION: NEGATIVE There is no mammographic evidence of malignancy. A 1 year screening mammogram is recommended. This exam was interpreted at Station ID: [id number]. NOTE: For mammograms, a report in lay terms will be sent to the patient. Approximately 15% of breast malignancies will not be visualized mammographically. In the management of a palpable breast mass, a negative mammogram must not discourage biopsy of a clinically suspicious lesion. Electronically Signed By: Calvin adames/anthony:08/02/2020 18:45:37 letter sent: Normal Exam ACR BI-RADS Category 1: Negative [id number]
== END ==
PROVIDERS: PCP Student in an Organized Health Care Education/Training Program; Referring Provider Student in an Organized Health Care Education/Training Program; Visit Provider Student in an Organized Health Care Education/Training Program
DX: Z12.31 Encounter for screening mammogram for malignant neoplasm of breast (principal); Z80.3 Family history of malignant neoplasm of breast
CPT/HCPCS: 77063; 77067

== ENCOUNTER 2020-08-15 16:13 | Emergency (ER) | payer OTHER, MEDICAID, SELFPAY ==
[2020-08-15] VITALS (9 sets, daily range): BP systolic 120–192; BP diastolic 57–91; PULSE 75–96; RESP 18; TEMP 36.6; O2SAT 96–100; BMI 25.8
--- NOTE | 2020-08-15 16:37 | ED.GENADULT ---
HPI - General Adult General Chief complaint: Abdominal Pain Stated complaint: Sick,vomiting,diarrhea,chills,sweats,abd pain Time Seen by Provider: 08/15/20 16:25 Source: patient Mode of arrival: Ambulatory Limitations: no limitations History of Present Illness HPI narrative: Patient is a 55-year-old female here for evaluation of approximately 12 hours of vomiting, diarrhea, chills, sweats, abdominal pain. She states that her abdominal pain is on her left side but really it hurts throughout her entire abdomen. No recent travel. No recent antibiotics. Has not tried anything for symptoms prior to arrival. Related Data Home Medications Medication Instructions Recorded Confirmed levothyroxine [Synthroid] 75 mcg PO QAM #0 05/31/11 01/29/20 tizanidine 4 mg PO TIDP PRN #0 10/06/16 01/29/20 imipramine HCl 50 mg tablet 50 mg PO BID 08/07/19 01/29/20 oxybutynin chloride 15 mg 15 mg PO DAILY 08/07/19 01/29/20 tablet,extended release 24 hr celecoxib 200 mg capsule 200 mg PO BID cap 11/01/19 11/01/19 lorazepam 0.5 mg tablet mg PO BEDTIME PRN tab 11/01/19 01/29/20 cholecalciferol (vitamin D3) 50 50 mcg PO DAILY 01/29/20 01/29/20 mcg (2,000 unit) tablet Previous Rx's Medication Instructions Recorded diclofenac sodium 75 mg See Rx Instructions .ROUTE 05/21/20 tablet,delayed release .COMPLEX #60 tab hydrocodone-acetaminophen [Walters] 1 tab PO Q6H PRN #10 tab 08/15/20 ondansetron 4 mg PO Q6H PRN #10 tab 08/15/20 tamsulosin [Flomax] 0.4 mg PO DAILY #14 cap 08/15/20 Allergies Allergy/AdvReac Type Severity Reaction Status Date / Time wool [WOOL] Allergy Intermediate HIVES Verified 01/29/20 15:11 green pepper [GREEN PEPPER] AdvReac Severe burping Verified 01/29/20 15:11 morphine [MORPHINE] AdvReac Severe VOMITING, Verified 01/29/20 15:11 MY BODY ADDICTS TO VERY QUICKLY perez peppers Allergy Severe burping Uncoded 01/29/20 15:11 Review of Systems Constitutional Constitutional: Reports chills, Reports fatigue, Reports fever(s) (Subjective) and Denies headache(s) ENT Ears, Nose, Mouth, and Throat: Denies headache(s) Cardiovascular Cardiovascular: Denies chest pain and Denies dyspnea Respiratory Respiratory: Denies dyspnea Gastrointestinal Gastrointestinal: Reports abdominal pain, Reports diarrhea, Reports nausea and Reports vomiting Genitourinary Genitourinary: Denies dysuria Genitourinary: Denies dysuria Integumentary/Breasts Skin/Breast: Denies rash Neurologic Neurologic: Denies behavioral changes and Denies headache(s) Psychiatric Psychiatric: Denies behavioral changes Endocrine Endocrine: Reports fatigue Hematologic/Lymphatic On Anticoagulants: No Allergic/Immunologic Allergic/Immunologic: Denies urticaria Patient History Medical History (Updated 08/15/20 @ 18:40 by Wenceslao Kaufman DO) Anemia Facet arthropathy, lumbar Fibromyalgia Healthy adult Herniated nucleus pulposus, L2-3 Herniated nucleus pulposus, L4-5 Hyperlipidemia Hypothyroid Kidney disease Lumbar radiculopathy, chronic Migraines Other spondylosis with radiculopathy, lumbosacral region Seizures UTI (urinary tract infection) Surgical History Hx of neck surgery Family History Father Hypertension Diabetes mellitus Mother Cancer Grandmother Cancer Social History Smoking Status: Former smoker Smoking Status: Former smoker alcohol intake frequency: 0-2 drinks per day Substance Use Type: marijuana Exam Initial Vital Signs Initial Vital Signs: Vital Signs Pulse Rate 79 08/15/20 16:31 Pulse Oximetry 100 08/15/20 16:31 Const General: cooperative Limitations: mental status not altered [facility] Head: normal to inspection and normocephalic Resp Effort & Inspection: normal respiratory effort Auscultation: clear to auscultation bilaterally Cardio Rate: regular rate Rhythm: regular rhythm GI Inspection: non-distended Palpation: soft, No guarding and tender (Diffusely tender however more on left side) Skin Lesions: no lesions Rashes: no rashes Neuro General: patient alert, patient awake and patient oriented x3 Cognition: normal cognition Speech: speech normal Extrem General: normal to inspection and capillary refill normal Psych Appearance: grossly normal and well kempt Course Orders Ordered: Discontinued Medications Hydromorphone HCl (Hydromorphone 1 Mg Inj) 1 mg IV NOW ONE Stop: 08/15/20 18:12 Last Admin: 08/15/20 18:28 Dose: 1 mg Documented by: NEYMAR Sodium Chloride (Normal Saline 0.9%) 1,000 mls @ 1,000 mls/hr IV BOLUS ONE Stop: 08/15/20 17:37 Last Infusion: 08/15/20 19:29 Dose: 0 mls/hr Documented by: Admin: 08/15/20 16:57 Dose: 1,000 mls/hr Documented by: ISIAH Ketorolac Tromethamine (Ketorolac 60 Mg/2 Ml Vial) 30 mg IV NOW ONE Stop: 08/15/20 16:39 Last Admin: 08/15/20 17:01 Dose: 30 mg Documented by: ISIAH Ondansetron HCl (Ondansetron 4 Mg/2 Ml Inj) 4 mg IV NOW ONE Stop: 08/15/20 16:39 Last Admin: 08/15/20 17:01 Dose: 4 mg Documented by: ISIAH Vital Signs Vital signs: Vital Signs - 8 hr 08/15/20 16:31 08/15/20 16:37 08/15/20 16:48 Temperature 97.8 F Pulse Rate 79 83 78 Respiratory Rate 18 Blood Pressure 192/91 H 180/89 H Pulse Oximetry 100 100 99 08/15/20 17:00 Temperature Pulse Rate 81 Respiratory Rate Blood Pressure 184/91 H Pulse Oximetry 98 Medical Decision Making Lab Data Lab results reviewed: Yes I reviewed the patient's lab results. Result diagrams: 08/15/20 16:45 08/15/20 16:45 Labs: Lab Results 08/15/20 08/15/20 08/15/20 Range/Units 16:45 16:45 17:43 WBC 17.5 H (4.5-11.0) X10^3/uL RBC 4.81 (4.0-5.2) X10^6/uL Hgb 14.2 (12.0-16.0) g/dL Hct 42.8 (36-46) % MCV 88.9 (80-100) fL MCH 29.5 (26-34) PG MCHC 33.2 (30-36) % RDW 13.5 (11.6-14.8) % Plt Count 259 (150-400) X10^3/uL Neut % (Auto) 91.2 H (50-75) % Lymph % (Auto) 3.3 L (25-40) % Armstrong % (Auto) 4.9 (3-14) % Eos % (Auto) 0.0 L (2-4) % Baso % (Auto) 0.6 (0-2) % Neut # (Auto) 31882 H (3274-3426) /uL Lymph # (Auto) 600 L (0495-3650) /uL Armstrong # (Auto) 900 (0-900) /uL Eos # (Auto) 0 (0-450) /uL Baso # (Auto) 100 (0-100) /uL Sodium 139 (137-145) mmol/L Potassium 4.4 (3.4-5.1) mmol/L Chloride 109 H (98-107) mmol/L Carbon Dioxide 24 (22-32) mmol/L BUN 22 H (7-17) mg/dL Creatinine 1.34 H (0.52-1.04) mg/dL Estimated GFR 41.1 L (>60) mL/min BUN/Creatinine Ratio 16.4 (6-22) Glucose 188 H (70-100) mg/dL Calcium 10.2 (8.4-10.2) mg/dL Total Bilirubin 0.9 (0.2-1.3) mg/dL AST 33 (14-36) IU/L ALT 22 (<35) IU/L Alkaline Phosphatase 90 (38-126) U/L Total Protein 7.9 (6.3-8.2) g/dL Albumin 4.8 (3.5-5.0) g/dL Globulin 3.1 (1.7-4.1) g/dL Albumin/Globulin Ratio 1.5 (1.0-2.8) Lipase 52 (23-300) U/L Urine RBC 10-30/hpf H (0-5/HPF) Urine WBC 0-1/hpf (0-5/HPF) Ur Squamous Epith Cells 0-1 /hpf (0-5/HPF) Urine Bacteria None seen (None) Ur Culture Indicated? Cult not indicated Urine Dip Bedside Urine Glucose 250 mg/dl Bedside Urine Bilirubin - Negative Bedside Urine Ketone +/- 5 Urine Specific [place] 1.015 Bedside Urine Occult Blood +++ Bedside Urine pH 7.5 Bedside Urine Protein - Negative Bedside Urine Urobilinogen - Negative Bedside Urine Nitrite - Negative Bedside Urine Leukocytes - Negative Esterase Point of care testing: Urine Dip Bedside Urine Glucose 250 mg/dl Bedside Urine Bilirubin - Negative Bedside Urine Ketone +/- 5 Urine Specific [place] 1.015 Bedside Urine Occult Blood +++ Bedside Urine pH 7.5 Bedside Urine Protein - Negative Bedside Urine Urobilinogen - Negative Bedside Urine Nitrite - Negative Bedside Urine Leukocytes - Negative Esterase Imaging Data CT scan - abdomen/pelvis: Radiologist's Impression: [facility] [place] [id number] Scan ReportSigned Patient: Nancy Mancera LMR#: [id number]: 1965Acct:[id number]/Sex: 55 / FDate of Service: 08/15/20Loc: EDAccession Number: [id number] Procedure: CT abdomen pelvis w con Ordering Provider: Wenceslao Kaufman D.O. PROCEDURE: CT ABDOMEN PELVIS W CON INDICATIONS: Left-sided abdominal pain TECHNIQUE: After the administration of intravenous contrast, 5 mm thick sections acquired from the diaphragm to the symphysis. 5 mm coronal and sagittal reformats were acquired. For radiation dose reduction, the following was used: automated exposure control, adjustment of mA and/or kV according to patient size. COMPARISON: [facility], CT, ABDOMEN/PELVIS WITH CONTRAST, 09/04/2015, 21:04. FINDINGS: Image quality: Excellent. ABDOMEN: Lung bases: There is mild dependent atelectasis bilaterally. Heart size is normal. Solid organs: There is a hypodense lesion within segment 5 of the right hepatic lobe with indistinct margins measuring up to 1.1 cm which appears similar to the prior study. The findings are suggestive of a hemangioma. A nonspecific hypodensity is also redemonstrated within segment 2 of the left hepatic lobe measuring up to 1.1 cm. Findings are also similar to the prior study and likely represent a cyst or hemangioma. The gallbladder appears within normal limits without calcified gallstones. Biliary system is non-dilated. Pancreas enhances normally. No peripancreatic fat stranding or fluid collections. No pancreatic duct dilatation. The spleen is normal in size. No adrenal nodules. There is an obstructing stone measuring 0.4 cm at the left ureterovesicular junction with associated mild to moderate left hydroureteronephrosis. There is extensive perinephric stranding and fluid raising the possibility of forniceal rupture. There is asymmetrically delayed enhancement of the left kidney. There are 2 additional nonobstructing left renal stones, with the largest stone measuring up to 0.5 cm. The right kidney is atrophic in size with areas of cortical thinning. No right hydronephrosis or right renal stones. The right ureter is nondistended. Peritoneum and bowel: Small bowel loops demonstrate normal wall thickness and caliber. The appendix is normal in appearance. The transverse, descending, and sigmoid colon are nondistended. There is suggestion of mild associated wall thickening most prominent at the hepatic flexure. A mild colitis cannot be excluded. No free fluid or air. Nodes and vessels: No retroperitoneal or mesenteric adenopathy by size criteria. Aorta and inferior vena cava are normal in size. Miscellaneous: No ventral hernias. PELVIS: Genitourinary: Bladder wall thickness is normal. Miscellaneous: No inguinal hernias or adenopathy. Bones: No suspicious bony lesions. No vertebral body compression fractures. IMPRESSION: 1. Obstructing urinary stone at the left UVJ with associated mild to moderate left hydroureteronephrosis. Extensive perinephric stranding and fluid are demonstrated raising the possibility of forniceal rupture. There is also asymmetrically delayed enhancement of the left kidney likely due to obstruction. 2. Additional small nonobstructing left renal stones as described. 3. Nondistention of the distal colon with suggestion of mild wall thickening most prominent at the hepatic flexure. The findings may be artifactual due to nondistention but a mild colitis cannot be excluded. Dictated by: Heber Lozano M.D. on 08/15/2020 at 16:45 Approved by: Heber Lozano M.D. on 08/15/2020 at 16:52 MDM Narrative Medical decision making narrative: Patient does have a leukocytosis however her urine shows no signs of infection. The CT scan of her abdomen does not show any acute surgical/infectious etiology she does have a increase in her Creatinine and A decrease in her GFR. The CT scan also shows a left-sided UVJ stone. This is consistent with her symptoms. There was also concern about a forniceal rupture on the left. Discussed the case with who recommended discharging the patient with symptom control in a strainer and follow up in the office in strict return precautions. Discharge Plan Departure Patient Disposition: Home Clinical Impression: Renal colic on left side Instructions: DI for Kidney Stones Activity Restrictions/Additional Instructions: A prescriptions for medications electronically transmitted to [email or web address]. Please start taking them as directed. Also recommend that you contact the [place] [facility] at [phone]. Recommend you contact them tomorrow for follow-up. Return to the emergency department for any new or worsening symptoms Prescriptions: New ondansetron 4 mg tablet,disintegrating 4 mg PO Q6H PRN (Reason: nausea and vomiting) Qty: 10 RF: 0 tamsulosin [Flomax] 0.4 mg capsule 0.4 mg PO DAILY Qty: 14 RF: 0 hydrocodone-acetaminophen [Walters] 5-325 mg tablet 1 tab PO Q6H PRN (Reason: pain) Qty: 10 RF: 0 No Action levothyroxine [Synthroid] 75 MCG tablet 75 mcg PO QAM Qty: 0 RF: 0 tizanidine 4 MG tablet 4 mg PO TIDP PRNQty: 0 RF: 0 diclofenac sodium 75 mg tablet,delayed release (DR/EC) See Rx Instructions .ROUTE .COMPLEX Qty: 60 RF: 3 cholecalciferol (vitamin D3) 50 mcg (2,000 unit) tablet 50 mcg PO DAILY RF: 0 oxybutynin chloride 15 mg tablet extended release 24hr 15 mg PO DAILY RF: 0 imipramine HCl 50 mg tablet 50 mg PO BID RF: 0 celecoxib [Celebrex] 200 mg capsule 200 mg PO BID RF: 0 Hold Instructions: Home Medication placed on hold at Doctor's office lorazepam 0.5 mg tablet PO BEDTIME PRN (Reason: anxiety) RF: 0 Referrals: Charisma Reed MD [Primary Care Provider] -
[2020-08-15 16:57] LABS: Add Manual Diff / Slide Review NO; Basophils Absolute Auto 100 /uL (0-100); Basophils Percent Auto 0.6 % (0-2); Eosinophils Absolute Auto 0 /uL (0-450); Hematocrit 42.8 % (36-46); Hemoglobin 14.2 g/dL (12.0-16.0); Lymphocytes Absolute Auto 600 /uL (1100-4500); Lymphocytes Percent Auto 3.3 % (25-40); Mean Corpuscular HGB Conc 33.2 % (30-36); Mean Corpuscular Hemoglobin 29.5 PG (26-34); Mean Corpuscular Volume 88.9 fL (80-100); Monocytes Absolute Auto 900 /uL (0-900); Monocytes Percent Auto 4.9 % (3-14); Neutrophils Absolute Auto 16000 /uL (1500-7000); Neutrophils Percent Auto 91.2 % (50-75); Platelet Count 259 X10^3/uL (150-400); Red Blood Cell Count 4.81 X10^6/uL (4.0-5.2); Red Cell Distribution Width 13.5 % (11.6-14.8); White Blood Cell Count 17.5 X10^3/uL (4.5-11.0)
[2020-08-15] MEDS: SODIUM CHLORIDE 0.9% 1,000 ML 1000 ML IV (16:57)
[2020-08-15] MEDS: KETOROLAC 60 MG/2 ML VIAL 30 MG IV (17:01)
[2020-08-15] MEDS: ONDANSETRON 4 MG/2 ML INJ IV (17:01)
[2020-08-15 17:05] LABS: Alanine Aminotransferase 22 IU/L (<35); Albumin 4.8 g/dL (3.5-5.0); Albumin Globulin Ratio 1.5 (1.0-2.8); Alkaline Phosphatase 90 U/L (38-126); Aspartate Aminotransferase 33 IU/L (14-36); BUN Creatinine Ratio 16.4 (6-22); Bilirubin Total 0.9 mg/dL (0.2-1.3); Blood Urea Nitrogen 22 mg/dL (7-17); Calcium 10.2 mg/dL (8.4-10.2); Carbon Dioxide 24 mmol/L (22-32); Chloride 109 mmol/L (98-107); Estimated Glomerular Filt Rate 41.1 mL/min (>60); Globulin 3.1 g/dL (1.7-4.1); Glucose 188 mg/dL (70-100); Lipase 52 U/L (23-300); Sodium 139 mmol/L (137-145); Total Protein 7.9 g/dL (6.3-8.2)
[2020-08-15 17:17] LABS: HEMOLYSIS 58 (0-50); Potassium 4.4 mmol/L (3.4-5.1)
[2020-08-15 18:00] LABS: Bacteria Urine None Seen
[2020-08-15 18:08] LABS: RBC Urine 10-30/HPF (0-5/HPF); Squamous Epithelial Cell Urine 0-1 /HPF (0-5/HPF); WBC Urine 0-1/HPF (0-5/HPF)
[2020-08-15 18:09] LABS: Culture Indicated Urine Cult Not Indicated
[2020-08-15] MEDS: HYDROMORPHONE 1 MG INJ IV (18:28)
== END 2020-08-15 19:30 | disposition home or self-care (01) ==
PROVIDERS: Emergency Provider Emergency Medicine; PCP Student in an Organized Health Care Education/Training Program
DX: N23 Unspecified renal colic (principal); R11.2 Nausea with vomiting, unspecified; R19.7 Diarrhea, unspecified; R50.9 Fever, unspecified; M51.37 Other intervertebral disc degeneration, lumbosacral region; M51.26 Other intervertebral disc displacement, lumbar region; M47.27 Other spondylosis with radiculopathy, lumbosacral region
CPT/HCPCS: 36415; 72110; 74177; 80053; 81003; 81015; 83690; 85025; 96361; 96374; 96375; 99281; 99284; J1170; J1885; J2405; Q9967

== ENCOUNTER → 2020-08-15 19:34 | Outpatient (CLI) | payer OTHER, MEDICAID, SELFPAY ==
--- NOTE | 2020-08-15 19:35 | DI.RAD.S_ITS ---
PROCEDURE: XR LUMBAR SPINE MIN 4V INDICATIONS: BACK PAIN TECHNIQUE: 5 views of the lumbar spine were acquired, including bilateral oblique views. COMPARISON: [facility], , XR LUMBAR SPINE MIN 4V, 11/01/2019, 12:43. FINDINGS: Bones: 5 nonrib-bearing vertebrae are present. There is normal bony alignment. Degenerative endplate changes are seen at L2-3 through L5-S1 levels with vacuum disc phenomenon and decreased intervertebral disc space at L5-S1 level. No vertebral body compression fractures. No suspicious bony lesions. Soft tissues: Overlying bowel gas pattern is normal. No suspicious soft tissue calcifications. Oblique images: No pars defects. No significant bony foraminal stenosis. IMPRESSION: Degenerative disc disease throughout lumbar spine more prominent at L5-S1 level. No gross pars defect. No significant bony foraminal stenosis. No compression fracture or spondylolisthesis. Dictated by: Ab Saldana M.D. on 08/15/2020 at 20:00 Approved by: Ab Saldana M.D. on 08/15/2020 at 20:01
== END ==
PROVIDERS: PCP Student in an Organized Health Care Education/Training Program; Referring Provider Physical Medicine & Rehabilitation; Visit Provider Physical Medicine & Rehabilitation
DX: M51.37 Other intervertebral disc degeneration, lumbosacral region (principal); M51.26 Other intervertebral disc displacement, lumbar region; M47.27 Other spondylosis with radiculopathy, lumbosacral region
CPT/HCPCS: 72110

== ENCOUNTER 2020-08-18 05:55 | Emergency (ER) | payer OTHER, MEDICAID, SELFPAY ==
[2020-08-18] VITALS (8 sets, daily range): BP systolic 120–157; BP diastolic 73–106; PULSE 84–106; RESP 14–18; TEMP 36.2; O2SAT 95–100; BMI 25.0
--- NOTE | 2020-08-18 06:05 | ED_ITS ---
HPI - Abdominal Pain <Claudiadoris Humphreys, DO - Last Filed: 08/23/20 07:44> General Chief Complaint: Back Pain/Injury Stated Complaint: kidney stones Time Seen by Provider: 08/18/20 06:04 Source: patient Mode of arrival: Ambulatory Limitations: no limitations History of Present Illness HPI narrative: This is a 55-year-old female comes in with complaint of left flank and abdominal pain. Patient states she was seen here on the 15 of August for same and was told that she had a kidney stone and that she may have had a rupture. Patient states she has continued to have pain which has increased s heather she was here last. She has had nausea and vomiting and states she has not been able to tolerate any orals or keep any fluids down. She has had chills and subjective fever. She states her pain is moved somewhat from the left flank into the left lower quadrant. She states that she was urinating regularly until about an hour and a half ago and they did not feel like she could urinate but has the sensation that she needs to. Denies any dysuria or frequency. She also states she has had frequent diarrhea. She denies any melena or hematochezia. She states this is also new change from her recent visit. She states she takes medication for thyroid. Denies any other regular medications. Has had Uro guide surgery for prolapse. States she has been smoking where what a for pain control and has taken diclofenac for pain as well. Patient has urologist at [facility] with a [id number] appointment this coming week. Related Data Home Medications Medication Instructions Recorded Confirmed levothyroxine [Synthroid] 75 mcg PO QAM #0 05/31/11 01/29/20 tizanidine 4 mg PO TIDP PRN #0 10/06/16 01/29/20 imipramine HCl 50 mg tablet 50 mg PO BID 08/07/19 01/29/20 oxybutynin chloride 15 mg 15 mg PO DAILY 08/07/19 01/29/20 tablet,extended release 24 hr celecoxib 200 mg capsule 200 mg PO BID cap 11/01/19 11/01/19 lorazepam 0.5 mg tablet mg PO BEDTIME PRN tab 11/01/19 01/29/20 cholecalciferol (vitamin D3) 50 50 mcg PO DAILY 01/29/20 01/29/20 mcg (2,000 unit) tablet Previous Rx's Medication Instructions Recorded diclofenac sodium 75 mg See Rx Instructions .ROUTE 05/21/20 tablet,delayed release .COMPLEX #60 tab hydrocodone-acetaminophen [[place]] 1 tab PO Q6H PRN #10 tab 08/15/20 ondansetron 4 mg PO Q6H PRN #10 tab 08/15/20 tamsulosin [Flomax] 0.4 mg PO DAILY #14 cap 08/15/20 hydrocodone-acetaminophen 1 tab PO Q6H PRN #10 tab 08/18/20 ondansetron 4 mg PO Q8H PRN #10 tab 08/18/20 Allergies Allergy/AdvReac Type Severity Reaction Status Date / Time wool [WOOL] Allergy Intermediate HIVES Verified 01/29/20 15:11 green pepper [GREEN PEPPER] AdvReac Severe burping Verified 01/29/20 15:11 morphine [MORPHINE] AdvReac Severe VOMITING, Verified 01/29/20 15:11 MY BODY ADDICTS TO VERY QUICKLY perez peppers Allergy Severe burping Uncoded 01/29/20 15:11 Review of Systems <Claudia Humphreys DO - Last Filed: 08/23/20 07:44> Review of Systems ROS Unobtainable: All systems reviewed & are unremarkable except as noted in HPI and below Patient History <Claudia Humphreys DO - Last Filed: 08/23/20 07:44> Medical History (Updated 08/18/20 @ 09:25 by Divina Oneal DO) Anemia Facet arthropathy, lumbar Fibromyalgia Healthy adult Herniated nucleus pulposus, L2-3 Herniated nucleus pulposus, L4-5 Hyperlipidemia Hypothyroid Kidney disease Lumbar radiculopathy, chronic Migraines Other spondylosis with radiculopathy, lumbosacral region Seizures UTI (urinary tract infection) Surgical History Hx of neck surgery Family History Father Hypertension Diabetes mellitus Mother Cancer Grandmother Cancer Social History Smoking Status: Former smoker Smoking Status: Former smoker alcohol intake frequency: 0-2 drinks per day Substance Use Type: marijuana Exam <Claudia Humphreys DO - Last Filed: 08/23/20 07:44> Narrative Exam Narrative: GENERAL: Alert and oriented x three, well-nourished female in mild to moderate distress. Patient was able to ambulate to the room but does appear quite uncomfortable sitting on the bed. HEENT: Head normocephalic, atraumatic, EOMI, pupils reactive, face symmetric, moist mucous membranes NECK: Supple, full range of motion CARDIOVASCULAR: Regular rate and rhythm without murmurs, rubs or gallops. RESPIRATORY: Breath sounds equal bilaterally, no wheezes rales or rhonchi. ABDOMEN: Soft, nontender. Normoactive bowel sounds all 4 quadrants. No guarding or rebound, rigidity, no mass : No CVA tenderness EXTREMITIES: Normal range of motion, no clubbing or edema. Neurovascularly intact NEUROLOGICAL: Cranial nerves II through XII grossly intact. Moving all extremities SKIN: Warm, dry, no petechiae, no rashes or lesions. Initial Vital Signs Initial Vital Signs: Vital Signs Temperature 97.1 F L 08/18/20 06:00 Pulse Rate 106 H 08/18/20 06:00 Respiratory Rate 18 08/18/20 06:00 Blood Pressure 157/106 H 08/18/20 06:00 Pulse Oximetry 100 08/18/20 06:00 <Divina Oneal DO - Last Filed: 08/18/20 12:52> Initial Vital Signs Initial Vital Signs: Vital Signs Temperature 97.1 F L 08/18/20 06:00 Pulse Rate 106 H 08/18/20 06:00 Respiratory Rate 18 08/18/20 06:00 Blood Pressure 157/106 H 08/18/20 06:00 Pulse Oximetry 100 08/18/20 06:00 Course <Claudia Humphreys DO - Last Filed: 08/23/20 07:44> Orders Ordered: Discontinued Medications Hydromorphone HCl (Hydromorphone 1 Mg Inj) 1 mg IV NOW ONE Stop: 08/18/20 07:48 Last Admin: 08/18/20 08:04 Dose: 1 mg Documented by: AUPDIKE Sodium Chloride (Normal Saline 0.9%) 1,000 mls @ 1,000 mls/hr IV BOLUS ONE Stop: 08/18/20 07:08 Last Infusion: 08/18/20 07:34 Dose: 0 mls/hr Documented by: Admin: 08/18/20 06:33 Dose: 1,000 mls/hr Documented by: CAROLE Lidocaine HCl 5.4 ml/ Sodium (Chloride) 55.4 mls @ 332.4 mls/hr IV NOW ONE Stop: 08/18/20 06:13 Last Infusion: 08/18/20 06:52 Dose: 0 mls/hr Documented by: Admin: 08/18/20 06:33 Dose: 332.4 mls/hr Documented by: CAROLE Sodium Chloride (Normal Saline 0.9%) 1,000 mls @ 1,000 mls/hr IV BOLUS ONE Stop: 08/18/20 09:21 Last Infusion: 08/18/20 09:39 Dose: 0 mls/hr Documented by: Admin: 08/18/20 08:38 Dose: 1,000 mls/hr Documented by: JAVED Lorazepam (Lorazepam 2 Mg/Ml Inj) 0.5 mg IV NOW ONE Stop: 08/18/20 06:54 Last Admin: 08/18/20 06:57 Dose: 0.5 mg Documented by: CAROLE Metoclopramide HCl (Metoclopramide 10 Mg/2 Ml Inj) 10 mg IV NOW ONE Stop: 08/18/20 09:18 Last Admin: 08/18/20 09:26 Dose: 10 mg Documented by: JAVED Ondansetron HCl (Ondansetron 4 Mg/2 Ml Inj) 4 mg IV NOW ONE Stop: 08/18/20 06:10 Last Admin: 08/18/20 06:33 Dose: 4 mg Documented by: CAROLE Ondansetron HCl (Ondansetron 4 Mg/2 Ml Inj) 4 mg IV NOW ONE Stop: 08/18/20 07:59 Last Admin: 08/18/20 08:05 Dose: 4 mg Documented by: JAVED Pantoprazole Sodium (Pantoprazole 40 Mg Vial) 40 mg IV NOW ONE Stop: 08/18/20 09:18 Last Admin: 08/18/20 09:26 Dose: 40 mg Documented by: JAVED Vital Signs Vital signs: Vital Signs - 8 hr 08/18/20 06:00 08/18/20 06:47 08/18/20 07:00 Temperature 97.1 F L Pulse Rate 106 H 96 H 85 Respiratory Rate 18 14 Blood Pressure 157/106 H Pulse Oximetry 100 08/18/20 08:07 08/18/20 08:09 08/18/20 08:30 Temperature Pulse Rate 99 H 96 H 93 H Respiratory Rate Blood Pressure Pulse Oximetry 96 95 96 08/18/20 08:33 08/18/20 10:06 Temperature Pulse Rate 84 91 H Respiratory Rate 16 Blood Pressure 120/73 142/74 H Pulse Oximetry 97 98 <Divina Oneal DO - Last Filed: 08/18/20 12:52> Orders Ordered: Discontinued Medications Hydromorphone HCl (Hydromorphone 1 Mg Inj) 1 mg IV NOW ONE Stop: 08/18/20 07:48 Last Admin: 08/18/20 08:04 Dose: 1 mg Documented by: JAVED Sodium Chloride (Normal Saline 0.9%) 1,000 mls @ 1,000 mls/hr IV BOLUS ONE Stop: 08/18/20 07:08 Last Infusion: 08/18/20 07:34 Dose: 0 mls/hr Documented by: Admin: 08/18/20 06:33 Dose: 1,000 mls/hr Documented by: CAROLE Lidocaine HCl 5.4 ml/ Sodium (Chloride) 55.4 mls @ 332.4 mls/hr IV NOW ONE Stop: 08/18/20 06:13 Last Infusion: 08/18/20 06:52 Dose: 0 mls/hr Documented by: Admin: 08/18/20 06:33 Dose: 332.4 mls/hr Documented by: CAROLE Sodium Chloride (Normal Saline 0.9%) 1,000 mls @ 1,000 mls/hr IV BOLUS ONE Stop: 08/18/20 09:21 Last Infusion: 08/18/20 09:39 Dose: 0 mls/hr Documented by: Admin: 08/18/20 08:38 Dose: 1,000 mls/hr Documented by: JAVED Lorazepam (Lorazepam 2 Mg/Ml Inj) 0.5 mg IV NOW ONE Stop: 08/18/20 06:54 Last Admin: 08/18/20 06:57 Dose: 0.5 mg Documented by: CAROLE Metoclopramide HCl (Metoclopramide 10 Mg/2 Ml Inj) 10 mg IV NOW ONE Stop: 08/18/20 09:18 Last Admin: 08/18/20 09:26 Dose: 10 mg Documented by: JAVED Ondansetron HCl (Ondansetron 4 Mg/2 Ml Inj) 4 mg IV NOW ONE Stop: 08/18/20 06:10 Last Admin: 08/18/20 06:33 Dose: 4 mg Documented by: CAROLE Ondansetron HCl (Ondansetron 4 Mg/2 Ml Inj) 4 mg IV NOW ONE Stop: 08/18/20 07:59 Last Admin: 08/18/20 08:05 Dose: 4 mg Documented by: JAVED Pantoprazole Sodium (Pantoprazole 40 Mg Vial) 40 mg IV NOW ONE Stop: 08/18/20 09:18 Last Admin: 08/18/20 09:26 Dose: 40 mg Documented by: JAVED Vital Signs Vital signs: Vital Signs - 8 hr 08/18/20 06:00 08/18/20 06:47 08/18/20 07:00 Temperature 97.1 F L Pulse Rate 106 H 96 H 85 Respiratory Rate 18 14 Blood Pressure 157/106 H Pulse Oximetry 100 08/18/20 08:07 08/18/20 08:09 08/18/20 08:30 Temperature Pulse Rate 99 H 96 H 93 H Respiratory Rate Blood Pressure Pulse Oximetry 96 95 96 08/18/20 08:33 08/18/20 10:06 Temperature Pulse Rate 84 91 H Respiratory Rate 16 Blood Pressure 120/73 142/74 H Pulse Oximetry 97 98 MDM - Abdominal Pain <Claudia Humphreys DO - Last Filed: 08/23/20 07:44> Lab Data Result diagrams: 08/18/20 06:50 08/18/20 06:25 Labs: Lab Results 08/18/20 08/18/20 08/18/20 Range/Units 06:25 06:25 06:50 WBC 15.2 H (4.5-11.0) X10^3/uL RBC 4.65 (4.0-5.2) X10^6/uL Hgb 14.0 (12.0-16.0) g/dL Hct 41.2 (36-46) % MCV 88.6 (80-100) fL MCH 30.2 (26-34) PG MCHC 34.0 (30-36) % RDW 13.1 (11.6-14.8) % Plt Count 245 (150-400) X10^3/uL Neut % (Auto) 84.7 H (50-75) % Lymph % (Auto) 7.9 L (25-40) % [place] % (Auto) 6.2 (3-14) % Eos % (Auto) 0.7 L (2-4) % Baso % (Auto) 0.5 (0-2) % Neut # (Auto) 74395 H (8340-6931) /uL Lymph # (Auto) 1200 (4393-6577) /uL [place] # (Auto) 900 (0-900) /uL Eos # (Auto) 100 (0-450) /uL Baso # (Auto) 100 (0-100) /uL Sodium 135 L (137-145) mmol/L Potassium 3.4 (3.4-5.1) mmol/L Chloride 105 (98-107) mmol/L Carbon Dioxide 22 (22-32) mmol/L BUN 21 H (7-17) mg/dL Creatinine 1.24 H (0.52-1.04) mg/dL Estimated GFR 44.9 L (>60) mL/min BUN/Creatinine Ratio 16.9 (6-22) Glucose 132 H (70-100) mg/dL Lactate 2.0 (0.7-2.1) mmol/L Calcium 9.9 (8.4-10.2) mg/dL Total Bilirubin 0.6 (0.2-1.3) mg/dL AST 43 H (14-36) IU/L ALT 27 (<35) IU/L Alkaline Phosphatase 81 (38-126) U/L Total Protein 7.4 (6.3-8.2) g/dL Albumin 4.4 (3.5-5.0) g/dL Globulin 3.0 (1.7-4.1) g/dL Albumin/Globulin Ratio 1.5 (1.0-2.8) Lipase 93 D (23-300) U/L Urine Color Urine Appearance Urine pH (4.5-8.0) Ur Specific [place] (1.000-1.035) Urine Protein (Negative) Urine Glucose (UA) (Negative) g/dL Urine Ketones (NEGATIVE) Urine Occult Blood (Negative) Urine Nitrate (Negative) Urine Bilirubin (NEGATIVE) Urine Urobilinogen (0.2) E.U./dL Ur Leukocyte Esterase (NEGATIVE) Urine RBC (0-5/HPF) Urine WBC (0-5/HPF) Urine Bacteria (None) Ur Culture Indicated? Micro UA Comment 08/18/20 08/18/20 Range/Units 08:37 08:45 WBC (4.5-11.0) X10^3/uL RBC (4.0-5.2) X10^6/uL Hgb (12.0-16.0) g/dL Hct (36-46) % MCV (80-100) fL MCH (26-34) PG MCHC (30-36) % RDW (11.6-14.8) % Plt Count (150-400) X10^3/uL Neut % (Auto) (50-75) % Lymph % (Auto) (25-40) % [place] % (Auto) (3-14) % Eos % (Auto) (2-4) % Baso % (Auto) (0-2) % Neut # (Auto) (9383-6779) /uL Lymph # (Auto) (0619-1753) /uL [place] # (Auto) (0-900) /uL Eos # (Auto) (0-450) /uL Baso # (Auto) (0-100) /uL Sodium (137-145) mmol/L Potassium (3.4-5.1) mmol/L Chloride (98-107) mmol/L Carbon Dioxide (22-32) mmol/L BUN (7-17) mg/dL Creatinine (0.52-1.04) mg/dL Estimated GFR (>60) mL/min BUN/Creatinine Ratio (6-22) Glucose (70-100) mg/dL Lactate 0.9 (0.7-2.1) mmol/L Calcium (8.4-10.2) mg/dL Total Bilirubin (0.2-1.3) mg/dL AST (14-36) IU/L ALT (<35) IU/L Alkaline Phosphatase (38-126) U/L Total Protein (6.3-8.2) g/dL Albumin (3.5-5.0) g/dL Globulin (1.7-4.1) g/dL Albumin/Globulin Ratio (1.0-2.8) Lipase (23-300) U/L Urine Color Yellow Urine Appearance Clear Urine pH 7.0 (4.5-8.0) Ur Specific [place] <=1.005 (1.000-1.035) Urine Protein Negative (Negative) Urine Glucose (UA) Trace H (Negative) g/dL Urine Ketones Trace H (NEGATIVE) Urine Occult Blood Trace-lysed (Negative) Urine Nitrate Negative (Negative) Urine Bilirubin Negative (NEGATIVE) Urine Urobilinogen 0.2 (0.2) E.U./dL Ur Leukocyte Esterase Negative (NEGATIVE) Urine RBC None seen (0-5/HPF) Urine WBC None seen (0-5/HPF) Urine Bacteria None seen (None) Ur Culture Indicated? Cult not indicated Micro UA Comment Microscopic normal MDM Narrative Medical decision making narrative: This is a 55-year-old female comes with complaint of continued and worsening left flank pain. Patient was seen recently with an obstructing urinary stone at the left UVJ with [id number] hydroureteronephrosis and changes consistent with a possible forniceal rupture. Patient had some nondistention of the colon that could be suggestive of some thickening and has had diarrhea that is developed and may be consistent with a colitis. Patient also feels like she is retaining urine. She had a leukocytosis has had subjective fevers so labs, cultures and CT abdomen pelvis with contrast were ordered for full evaluation as she may have several situation causing her symptoms today. <Divina Oneal, DO - Last Filed: 08/18/20 12:52> Lab Data Attestation: I reviewed the patient's lab results. Labs: Lab Results 08/18/20 08/18/20 08/18/20 Range/Units 06:25 06:25 06:50 WBC 15.2 H (4.5-11.0) X10^3/uL RBC 4.65 (4.0-5.2) X10^6/uL Hgb 14.0 (12.0-16.0) g/dL Hct 41.2 (36-46) % MCV 88.6 (80-100) fL MCH 30.2 (26-34) PG MCHC 34.0 (30-36) % RDW 13.1 (11.6-14.8) % Plt Count 245 (150-400) X10^3/uL Neut % (Auto) 84.7 H (50-75) % Lymph % (Auto) 7.9 L (25-40) % [place] % (Auto) 6.2 (3-14) % Eos % (Auto) 0.7 L (2-4) % Baso % (Auto) 0.5 (0-2) % Neut # (Auto) 31929 H (7287-9057) /uL Lymph # (Auto) 1200 (1399-3420) /uL [place] # (Auto) 900 (0-900) /uL Eos # (Auto) 100 (0-450) /uL Baso # (Auto) 100 (0-100) /uL Sodium 135 L (137-145) mmol/L Potassium 3.4 (3.4-5.1) mmol/L Chloride 105 (98-107) mmol/L Carbon Dioxide 22 (22-32) mmol/L BUN 21 H (7-17) mg/dL Creatinine 1.24 H (0.52-1.04) mg/dL Estimated GFR 44.9 L (>60) mL/min BUN/Creatinine Ratio 16.9 (6-22) Glucose 132 H (70-100) mg/dL Lactate 2.0 (0.7-2.1) mmol/L Calcium 9.9 (8.4-10.2) mg/dL Total Bilirubin 0.6 (0.2-1.3) mg/dL AST 43 H (14-36) IU/L ALT 27 (<35) IU/L Alkaline Phosphatase 81 (38-126) U/L Total Protein 7.4 (6.3-8.2) g/dL Albumin 4.4 (3.5-5.0) g/dL Globulin 3.0 (1.7-4.1) g/dL Albumin/Globulin Ratio 1.5 (1.0-2.8) Lipase 93 D (23-300) U/L Urine Color Urine Appearance Urine pH (4.5-8.0) Ur Specific [place] (1.000-1.035) Urine Protein (Negative) Urine Glucose (UA) (Negative) g/dL Urine Ketones (NEGATIVE) Urine Occult Blood (Negative) Urine Nitrate (Negative) Urine Bilirubin (NEGATIVE) Urine Urobilinogen (0.2) E.U./dL Ur Leukocyte Esterase (NEGATIVE) Urine RBC (0-5/HPF) Urine WBC (0-5/HPF) Urine Bacteria (None) Ur Culture Indicated? Micro UA Comment 08/18/20 08/18/20 Range/Units 08:37 08:45 WBC (4.5-11.0) X10^3/uL RBC (4.0-5.2) X10^6/uL Hgb (12.0-16.0) g/dL Hct (36-46) % MCV (80-100) fL MCH (26-34) PG MCHC (30-36) % RDW (11.6-14.8) % Plt Count (150-400) X10^3/uL Neut % (Auto) (50-75) % Lymph % (Auto) (25-40) % [place] % (Auto) (3-14) % Eos % (Auto) (2-4) % Baso % (Auto) (0-2) % Neut # (Auto) (7450-6688) /uL Lymph # (Auto) (6468-1881) /uL [place] # (Auto) (0-900) /uL Eos # (Auto) (0-450) /uL Baso # (Auto) (0-100) /uL Sodium (137-145) mmol/L Potassium (3.4-5.1) mmol/L Chloride (98-107) mmol/L Carbon Dioxide (22-32) mmol/L BUN (7-17) mg/dL Creatinine (0.52-1.04) mg/dL Estimated GFR (>60) mL/min BUN/Creatinine Ratio (6-22) Glucose (70-100) mg/dL Lactate 0.9 (0.7-2.1) mmol/L Calcium (8.4-10.2) mg/dL Total Bilirubin (0.2-1.3) mg/dL AST (14-36) IU/L ALT (<35) IU/L Alkaline Phosphatase (38-126) U/L Total Protein (6.3-8.2) g/dL Albumin (3.5-5.0) g/dL Globulin (1.7-4.1) g/dL Albumin/Globulin Ratio (1.0-2.8) Lipase (23-300) U/L Urine Color Yellow Urine Appearance Clear Urine pH 7.0 (4.5-8.0) Ur Specific [place] <=1.005 (1.000-1.035) Urine Protein Negative (Negative) Urine Glucose (UA) Trace H (Negative) g/dL Urine Ketones Trace H (NEGATIVE) Urine Occult Blood Trace-lysed (Negative) Urine Nitrate Negative (Negative) Urine Bilirubin Negative (NEGATIVE) Urine Urobilinogen 0.2 (0.2) E.U./dL Ur Leukocyte Esterase Negative (NEGATIVE) Urine RBC None seen (0-5/HPF) Urine WBC None seen (0-5/HPF) Urine Bacteria None seen (None) Ur Culture Indicated? Cult not indicated Micro UA Comment Microscopic normal Imaging Data CT scan - abdomen/pelvis: Radiologist's Impression: PROCEDURE: CT ABDOMEN PELVIS W CON INDICATIONS: left flank pain, recent stone w/ ? forniceal rupture, ? coli TECHNIQUE: After the administration of intravenous contrast, 5 mm thick sections acquired from the diaphragm to the symphysis. 5 mm coronal and sagittal reformats were acquired. For radiation dose reduction, the following was used: automated exposure control, adjustment of mA and/or kV according to patient size. COMPARISON: [facility], CT, CT ABDOMEN PELVIS W CON, 08/15/2020, 17:19. FINDINGS: Image quality: Excellent. ABDOMEN: Lung bases: Lung bases are clear. Heart size is normal. Solid organs: Liver is normal in size and enhancement. Again noted is a small right lobe liver hemangioma. Gallbladder is unremarkable Biliary system is non dilated. Pancreas enhances normally. Spleen is normal in size and enhancement. No adrenal nodules. There continues to be a 3 mm stone pooching into the bladder at the distal left UVJ resulting and mild left hydroureter and hydronephrosis. There are 2 tiny nonobstructing left renal stones. The right kidney is again noted to be small and shrunken. Peritoneum and bowel: Bowel loops demonstrate normal wall thickness and caliber. No free fluid or air. Nodes and vessels: No retroperitoneal or mesenteric adenopathy by size criteria. Aorta and inferior vena cava are normal in size. Miscellaneous: No ventral hernias. PELVIS: Genitourinary: Bladder wall thickness is normal. Miscellaneous: No inguinal hernias or adenopathy. Bones: No suspicious bony lesions. No vertebral body compression fractures. IMPRESSION: 1. The 3 mm stone at the distal aspect of the left ureterovesical junction still has not passed into the bladder. There is continued mild left hydronephrosis. 2. Tiny nonobstructing left renal stones. 3. Small, shrunken right kidney. Dictated by: Leonardo Holcomb M.D. on 08/18/2020 at 7:03 MDM Narrative Medical decision making narrative: Received sign-out from Dr. Humphreys. I have seen evaluated patient myself. Still in quite a bit of pain she is given 1 mg of Dilaudid which does seem to help. She says that she has taken 6 of her Zofran and that she has only taken 2 of the [place] when she is curled up in position. It seems as though she is behind on her pain medicine. CT does not show any further movement of her 3 mm stone which seems to be stuck at the UVJ. She has an appointment at [facility] in 2 days for follow-up. Blood work is overall improved leukocytosis is down creatinine is down, no sign of obvious infection. Discussion with patient admission to the hospital for pain control versus taking pain medications appropriately. I have discussed with her that she probably needs to take pain medication more regularly and to take it after she takes Zofran. At this time she agrees and would like to go home. Discharge Plan Departure Patient Disposition: Home Clinical Impression: Kidney stone on left side Instructions: DI for Kidney Stones Activity Restrictions/Additional Instructions: *You have been diagnosed with kidney stone left side *What to do: Increase fluid intake with something like Gatorade, pain control. You still have not passed your 3-4 mm stone. *Continue to take medications as directed--> SENT TO [facility] [place] 1 tablet every 6 hours if needed for pain Zofran 4 mg every 8 hours if needed for nausea or vomiting *Follow up with your primary care provider in 2-3 days, Please follow-up with urology as scheduled for WednesdayAugust 20 *Return to ER if you should have inability to pee, inability to tolerate fluids, fever, pain not controlled or any new, worsening or concerning symptoms CONTROLLED SUBSTANCE DISCHARGE (Narcotoic/benzodiazepine/Flexeril/Phenergan) 1. You have been prescribed narcotic medications, it does have acetaminophen/Tylenol/paracetamol in it, DO NOT TAKE MORE THAN 4,00mg in 24 hours of Tylenol. TRAMADOL DOES NOT CONTAIN TYLENOL 2. Please understand that we cannot provide further refills of narcotics, benzodiazepines or controlled substances through the ED and her pain management will need to be through your provider. 3. While on these medications you cannot drive or operate heavy machinery. 4. You cannot sign legal documents or perform any duties such as this. 5. As long as you're taking opiate pain medications he should also be taking a stool softener such as Colace, Dulcolax, MiraLAX or prune juice, to help avoid constipation. Prescriptions: New hydrocodone-acetaminophen 5-325 mg tablet 1 tab PO Q6H PRN (Reason: pain) Qty: 10 RF: 0 ondansetron 4 mg tablet,disintegrating 4 mg PO Q8H PRN (Reason: nausea and vomiting) Qty: 10 RF: 0 No Action levothyroxine [Synthroid] 75 MCG tablet 75 mcg PO QAM Qty: 0 RF: 0 tizanidine 4 MG tablet 4 mg PO TIDP PRNQty: 0 RF: 0 diclofenac sodium 75 mg tablet,delayed release (DR/EC) See Rx Instructions .ROUTE .COMPLEX Qty: 60 RF: 3 ondansetron 4 mg tablet,disintegrating 4 mg PO Q6H PRN (Reason: nausea and vomiting) Qty: 10 RF: 0 tamsulosin [Flomax] 0.4 mg capsule 0.4 mg PO DAILY Qty: 14 RF: 0 hydrocodone-acetaminophen [[place]] 5-325 mg tablet 1 tab PO Q6H PRN (Reason: pain) Qty: 10 RF: 0 cholecalciferol (vitamin D3) 50 mcg (2,000 unit) tablet 50 mcg PO DAILY RF: 0 oxybutynin chloride 15 mg tablet extended release 24hr 15 mg PO DAILY RF: 0 imipramine HCl 50 mg tablet 50 mg PO BID RF: 0 celecoxib [Celebrex] 200 mg capsule 200 mg PO BID RF: 0 Hold Instructions: Home Medication placed on hold at Doctor's office lorazepam 0.5 mg tablet PO BEDTIME PRN (Reason: anxiety) RF: 0 Referrals: Charisma Reed MD [Primary Care Provider] - ED Sign-out <Claudia Humphreys DO - Last Filed: 08/23/20 07:44> Sign Out Provider Sign Out Attestation: Patient Sign Out occurred on August 18, 2020 at 0700. Patient's care was discussed, and care was transferred from Dr. Humphreys to Kimmy . Patient labs and imaging pending.
--- NOTE | 2020-08-18 06:11 | DI.CT.S_ITS ---
PROCEDURE: CT ABDOMEN PELVIS W CON INDICATIONS: left flank pain, recent stone w/ ? forniceal rupture, ? coli TECHNIQUE: After the administration of intravenous contrast, 5 mm thick sections acquired from the diaphragm to the symphysis. 5 mm coronal and sagittal reformats were acquired. For radiation dose reduction, the following was used: automated exposure control, adjustment of mA and/or kV according to patient size. COMPARISON: [facility], CT, CT ABDOMEN PELVIS W CON, 08/15/2020, 17:19. FINDINGS: Image quality: Excellent. ABDOMEN: Lung bases: Lung bases are clear. Heart size is normal. Solid organs: Liver is normal in size and enhancement. Again noted is a small right lobe liver hemangioma. Gallbladder is unremarkable Biliary system is non dilated. Pancreas enhances normally. Spleen is normal in size and enhancement. No adrenal nodules. There continues to be a 3 mm stone pooching into the bladder at the distal left UVJ resulting and mild left hydroureter and hydronephrosis. There are 2 tiny nonobstructing left renal stones. The right kidney is again noted to be small and shrunken. Peritoneum and bowel: Bowel loops demonstrate normal wall thickness and caliber. No free fluid or air. Nodes and vessels: No retroperitoneal or mesenteric adenopathy by size criteria. Aorta and inferior vena cava are normal in size. Miscellaneous: No ventral hernias. PELVIS: Genitourinary: Bladder wall thickness is normal. Miscellaneous: No inguinal hernias or adenopathy. Bones: No suspicious bony lesions. No vertebral body compression fractures. IMPRESSION: 1. The 3 mm stone at the distal aspect of the left ureterovesical junction still has not passed into the bladder. There is continued mild left hydronephrosis. 2. Tiny nonobstructing left renal stones. 3. Small, shrunken right kidney. Dictated by: Leonardo Holcomb M.D. on 08/18/2020 at 7:03 Approved by: Leonardo Holcomb M.D. on 08/18/2020 at 7:06
[2020-08-18] MEDS: LIDOCAINE 2% 5.4 ML in SODIUM CHLORIDE 0.9% 50 ML 332.4 ML IV (06:33)
[2020-08-18] MEDS: ONDANSETRON 4 MG/2 ML INJ IV ×2 (06:33→08:05)
[2020-08-18] MEDS: SODIUM CHLORIDE 0.9% 1,000 ML 1000 ML IV ×2 (06:33→08:38)
[2020-08-18 06:47] LABS: Alanine Aminotransferase 27 IU/L (<35); Albumin 4.4 g/dL (3.5-5.0); Albumin Globulin Ratio 1.5 (1.0-2.8); Alkaline Phosphatase 81 U/L (38-126); Aspartate Aminotransferase 43 IU/L (14-36); BUN Creatinine Ratio 16.9 (6-22); Bilirubin Total 0.6 mg/dL (0.2-1.3); Blood Urea Nitrogen 21 mg/dL (7-17); Calcium 9.9 mg/dL (8.4-10.2); Carbon Dioxide 22 mmol/L (22-32); Chloride 105 mmol/L (98-107); Estimated Glomerular Filt Rate 44.9 mL/min (>60); Glucose 132 mg/dL (70-100); Lipase 93 U/L (23-300); Potassium 3.4 mmol/L (3.4-5.1); Sodium 135 mmol/L (137-145); Total Protein 7.4 g/dL (6.3-8.2)
[2020-08-18 06:56] LABS: Add Manual Diff / Slide Review NO; Basophils Absolute Auto 100 /uL (0-100); Basophils Percent Auto 0.5 % (0-2); Eosinophils Absolute Auto 100 /uL (0-450); Eosinophils Percent Auto 0.7 % (2-4); Hematocrit 41.2 % (36-46); Lymphocytes Absolute Auto 1200 /uL (1100-4500); Lymphocytes Percent Auto 7.9 % (25-40); Mean Corpuscular Hemoglobin 30.2 PG (26-34); Mean Corpuscular Volume 88.6 fL (80-100); Monocytes Absolute Auto 900 /uL (0-900); Monocytes Percent Auto 6.2 % (3-14); Neutrophils Absolute Auto 12900 /uL (1500-7000); Neutrophils Percent Auto 84.7 % (50-75); Platelet Count 245 X10^3/uL (150-400); Red Blood Cell Count 4.65 X10^6/uL (4.0-5.2); Red Cell Distribution Width 13.1 % (11.6-14.8); White Blood Cell Count 15.2 X10^3/uL (4.5-11.0)
[2020-08-18] MEDS: LORazepam 2 MG/ML INJ 0.5 MG IV (06:57)
[2020-08-18 07:04] LABS: HEMOLYSIS 53 (0-50)
[2020-08-18] MEDS: HYDROMORPHONE 1 MG INJ IV (08:04)
[2020-08-18 08:30] LABS: Reflexed Lactate in 2 Hours Y
[2020-08-18 08:56] LABS: Appearance Urine UA CLEAR; Bacteria Urine None Seen; Bilirubin Urine UA NEGATIVE (NEGATIVE); Color Urine UA YELLOW; Glucose Urine UA TRACE g/dL (Negative); Ketones Urine UA TRACE (NEGATIVE); Leukocyte Esterase Urine UA NEGATIVE (NEGATIVE); Nitrite Urine UA NEGATIVE (Negative); Occult Blood Urine UA TRACE-LYSED (Negative); Protein Urine UA NEGATIVE (Negative); RBC Urine None Seen (0-5/HPF); Specific Gravity Urine UA <=1.005 (1.000-1.035); Urobilinogen Urine UA 0.2 E.U./dL (0.2); WBC Urine None Seen (0-5/HPF)
[2020-08-18 09:02] LABS: Culture Indicated Urine Cult Not Indicated; Urine Comments Microscopic Normal
[2020-08-18 09:04] LABS: Lactate 2HR (Lactic Acid Rflx) 0.9 mmol/L (0.7-2.1)
[2020-08-18] MEDS: METOCLOPRAMIDE 10 MG/2 ML INJ IV (09:26)
[2020-08-18] MEDS: PANTOPRAZOLE 40 MG VIAL IV (09:26)
== END 2020-08-18 10:06 | disposition home or self-care (01) ==
PROVIDERS: Emergency Medicine; Emergency Provider Emergency Medicine; PCP Student in an Organized Health Care Education/Training Program
DX: N20.0 Calculus of kidney (principal); R11.2 Nausea with vomiting, unspecified
CPT/HCPCS: 36415; 51798; 74177; 80053; 81001; 83605; 83690; 85025; 87040; 96361; 96365; 96375; 96376; 99284; C9113; J1170; J2060; J2405; J2765; Q9967

== ENCOUNTER → 2020-10-01 15:46 | Outpatient (CLI) | payer OTHER, SELFPAY ==
[2020-10-01 16:27] LABS: COVID19 -Nasal RAPID Negative (Negative)
== END ==
PROVIDERS: PCP Student in an Organized Health Care Education/Training Program; Visit Provider Physical Medicine & Rehabilitation
DX: Z20.822 Contact with and (suspected) exposure to COVID-19 (principal)
CPT/HCPCS: 87635; C9803

== ENCOUNTER 2020-10-03 14:07 | Outpatient (CLI) | payer OTHER, SELFPAY ==
[2020-10-03] VITALS (8 sets, daily range): BP systolic 102–157; BP diastolic 56–65; PULSE 51–118; RESP 12–24; TEMP 36.6–36.9; O2SAT 94–99
--- NOTE | 2020-10-03 14:10 | DI.RAD.S_ITS ---
PROCEDURE: PAIN L INTERLAMINAR/CAUDAL INJ INDICATIONS: SPONDYLOSIS COMPARISON: [facility], CR, XR LUMBAR SPINE 2 OR 3 VIEWS, 09/25/2020, 15:27. FINDINGS: Fluoroscopic spot filming was performed to verify placement of a spinal needle at the L5-S1 level, as labeled on the films. Appropriate location of the needle tip was confirmed by injection of iodinated contrast. IMPRESSION: No significant intraprocedural abnormality. Dictated by: Mat Agosto M.D. on 10/03/2020 at 14:41 Approved by: Mat Agosto M.D. on 10/03/2020 at 14:41
[2020-10-03] MEDS: MIDAZOLAM 5 MG/5 ML VIAL IV (14:54)
[2020-10-03] MEDS: fentaNYL 100 MCG/2 ML INJ 50 MCG IV (14:54)
[2020-10-03] MEDS: IOPAMIDOL 15 ML VIAL 3 ML INJ (14:56)
[2020-10-03] MEDS: BUPIVACAINE 0.25% (PF) VIAL 2 ML INJ (14:57)
[2020-10-03] MEDS: DEXAMETHASONE 10 MG/ML VIAL 20 MG INJ (14:57)
[2020-10-03] MEDS: BETAMETHASONE 30 MG/5 ML MDV 6 MG INJ (14:57)
--- NOTE | 2020-10-03 15:04 | P.PCN_ITS ---
Date/Time/Diagnoses Date of procedure: 10/03/20 Time of procedure: 15:04 Pre-procedure diagnosis: 1. HNP WITH RADICULAR FEATURES, 2. MULTILEVEL CENTRAL STENOSIS, Post-procedure diagnosis: same Procedure Notes Procedure: 1. FLUOROSCOPICALLY GUIDED CONTRAST CONTROLLED INTERLAMINAR EPIDURAL STEROID INJECTION - L5/S1 Indications: Nancy is referred by Dr. Reed for treatment of Bilateral Foraminal Stenosis L>R LE symptoms. Physician: Zaheer Mcnamara Total Fluoroscopy time (seconds): 7 Total sedation minutes: 8 Complications: none Procedure in detail & Post-procedure care: FINDINGS Multilevel Central Spinal Stenosis with Nerve Root Compression DESCRIPTION OF PROCEDURE Fluoroscopically guided, contrast-controlled L5/S1 translaminar epidural steroid injection. Following review of allergy and review of potential side effects and complications, including, but not necessarily limited to, infection, allergic reaction, local tissue breakdown, temporary as well as permanent nerve injury, paralysis, stroke and possible , the patient indicated that the patient understood and agreed to proceed. An informed consent document was signed by the patient, witnessed by a nurse, and placed in the patient's chart. Additionally, other treatment options including modalities, medications, and physical therapy were reviewed with the patient. After review of previous anaesthesic history and IV conscious sedation the patient was deemed safe to proceed with today?s procedure with IV conscious sedation as ASA class II designation. Safety time-out was performed to confirm p atient ID, procedure to be performed and site of procedure. IV sedation was accomplished with a combination of 2mg of Versed and 50mcg of Fentanyl administered by the RN after DO order, titrated to patient comfort during the course of the procedure while the patient remained responsive to all verbal commands. In the prone position, following sterile prep and drape of the lumbar region, the L5/S1 translaminar space was identified fluoroscopically. The skin was anesthetized via a 25-gauge, 1.5-inch needle with 1% lidocaine solution. At this point, a 22-gauge short bevel spinal needle was atraumatically introduced and advanced under fluoroscopic guidance into the region of the L5/S1 translaminar space. Depth was confirmed on lateral view. Radiological data, including multiple fluoroscopic views of the lumbar spine, reveal a spinal needle at the L5/S1 translaminar space. Lateral views then show placement of the needle in the epidural space. Subsequent views show contrast material flowing superiorly and inferiorly in the epidural space. No vascular or intrathecal uptake is observed. At this point, using loss of resistance technique with saline and air, the epidural space was entered. This was confirmed following negative aspiration with injection of approximately 1.5cc of Isovue 200, showing excellent epidural flow without vascular or intrathecal uptake. At this point, 1 cc of 1% lidocaine solution combined with 3cc or 20mg of dexamethasone and 6mg of betamethasone was injected without incident. The patent tolerated the procedure without signs of symptoms of complications prior to transfer to the recovery area for further monitoring. The patient was then transferred to the recovery area where they were observed for an appropriate period of time after the injection. The patient reported a VAS score of 6 prior to the procedure and a post-procedure VAS of 0. POST OP INSTRUCTIONS The patient was provided a Pain Log to continue to record their response to the target-specific procedure prior to follow-up visit with their referring physician. Additionally, specific post-injection care instructions and a contact number to our office were provided if concerns arise regarding possible complications associated with the procedure are suspected.
== END 2020-10-03 15:30 | disposition home or self-care (01) ==
LOC: RAD 14:09
PROVIDERS: PCP Student in an Organized Health Care Education/Training Program; Referring Provider Student in an Organized Health Care Education/Training Program; Visit Provider Physical Medicine & Rehabilitation
DX: M51.17 Intervertebral disc disorders with radiculopathy, lumbosacral region (principal); M48.07 Spinal stenosis, lumbosacral region
CPT/HCPCS: 62323; J0702; J1100; J2250; J3010

== ENCOUNTER 2020-10-28 16:24 | Emergency (ER) | payer OTHER, MEDICAID, SELFPAY ==
[2020-10-28 16:52] VITALS: BP 128/64; PULSE 75; RESP 16; TEMP 36.9; O2SAT 100
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
[2020-10-28] MEDS: KETOROLAC 30 MG/ML VIAL IM (17:43)
[2020-10-28 18:17] VITALS: BP 134/76; PULSE 51; RESP 16; O2SAT 98
== END 2020-10-28 18:17 | disposition home or self-care (01) ==
PROVIDERS: Emergency Provider Emergency Medicine; PCP Student in an Organized Health Care Education/Training Program
DX: S20.211A Contusion of right front wall of thorax, initial encounter (principal); V89.2XXA Person injured in unspecified motor-vehicle accident, traffic, initial encounter
CPT/HCPCS: 71101; 96372; 99283; J1885

== ENCOUNTER → 2020-11-05 07:10 | Outpatient (CLI) | payer OTHER, MEDICAID, SELFPAY ==
[2020-11-05 14:42] LABS: COVID19 -Nasal RAPID Negative (Negative)
== END ==
PROVIDERS: PCP Student in an Organized Health Care Education/Training Program; Visit Provider Physical Medicine & Rehabilitation
DX: Z20.822 Contact with and (suspected) exposure to COVID-19 (principal)
CPT/HCPCS: 87635; C9803

== ENCOUNTER 2020-11-07 13:46 | Outpatient (CLI) | payer OTHER, MEDICAID, SELFPAY ==
[2020-11-07] VITALS (8 sets, daily range): BP systolic 107–126; BP diastolic 61–76; PULSE 87–97; RESP 10–24; TEMP 36.4; O2SAT 95–99
--- NOTE | 2020-11-07 13:47 | DI.RAD.S_ITS ---
PROCEDURE: PAIN L/SI FACET INJ/BLK 1STL INDICATIONS: SPONDYLOSIS COMPARISON: [facility], , PAIN L/SI FACET INJ/BLK 1STL, 12/19/2019, 12:55. FINDINGS: Fluoroscopic spot filming was performed to verify placement of a spinal needle at the L1-L2 level, as labeled on the films. Appropriate location of the needle tip was confirmed by injection of iodinated contrast. IMPRESSION: Intraprocedural examination within normal limits. Dictated by: Mat Agosto M.D. on 11/07/2020 at 14:05 Approved by: Mat Agosto M.D. on 11/07/2020 at 14:05
[2020-11-07] MEDS: fentaNYL 100 MCG/2 ML INJ 50 MCG IV (14:25)
[2020-11-07] MEDS: MIDAZOLAM 5 MG/5 ML VIAL IV (14:28)
[2020-11-07] MEDS: BETAMETHASONE 30 MG/5 ML MDV 6 MG INJ (14:30)
[2020-11-07] MEDS: IOPAMIDOL 15 ML VIAL 3 ML INJ (14:30)
[2020-11-07] MEDS: BUPIVACAINE 0.5% (PF) VIAL 2 ML INJ (14:30)
--- NOTE | 2020-11-07 14:37 | P.PCN_ITS ---
Date/Time/Diagnoses Date of procedure: 11/07/20 Time of procedure: 14:37 Pre-procedure diagnosis: 1. FACET ARTHROPATHY, 2. AXIAL LBP, 3. MULTILEVEL DDD Post-procedure diagnosis: same Procedure Notes Procedure: 1. FLUOROSCOPICALLY GUIDED CONTRAST CONTROLLED FACET JOINT INJECTIONS RIGHT L1/2 Indications: Nancy is referred by Dr. Moore for treatment of Axial LBP Physician: Zaheer Mcnamara Total Fluoroscopy time (seconds): 4 Total sedation minutes: 9 Complications: none Procedure in detail & Post-procedure care: FINDINGS Multilevel Facet Arthropathy with Clinically significant axial LBP DESCRIPTION OF PROCEDURE Fluoroscopically guided, contrast-controlled right L1/2 facet joint injections. Following review of allergy and review of potential side effects and complicatio ns, including, but not necessarily limited to, infection, allergic reaction, local tissue breakdown, stroke, temporary or permanent nerve injury, paralysis, and possible , the patient indicated that the patient understood and agreed to proceed. An informed consent document was signed by the patient, witnessed by a nurse, and placed in the patient's chart. Additionally, other treatment options including medications, modalities, and physical therapy were reviewed with the patient. After review of previous anaesthesic history and IV conscious sedation the patient was deemed safe to proceed with today?s procedure with IV conscious sedation as ASA class II designation. Safety time-out was performed to confirm patient ID, procedure to be performed and site of procedure. IV sedation was a ccomplished with a combination of 3mg of Versed and 50mcg of Fentanyl administered by the RN after DO order, titrated to patient comfort during the course of the procedure while the patient remained responsive to all verbal commands. In the prone position, following sterile prep and drape of the lumbar region, the posterior aspect of the right L1/2 facet joints were identified fluoroscopically. The skin was anesthetized via a 25-gauge 1.5-inch needle with 1% lidocaine solution into the corresponding facet joints. At this point, a 22- gauge 3.5-inch spinal needle was atraumatically introduced and advanced under fluoroscopic guidance into the corresponding facet joints. Following negative aspiration, injections of approximately 0.2-cc of Isovue 200 confirmed interarticular placement without vascular uptake. Radiological data, including multiple fluoroscopic views of the lumbosacral spine, reveal a spinal needle at the right L1/2 facet joints. Subsequent views show flow of contrast material both superiorly and inferiorly within the joint space without vascular or intrathecal uptake. At this point, a total of 0.5cc including a mixture of 0.25 cc Marcaine and 0.25cc betamethasone was injected without complication into each of the corresponding facet joints. The patient tolerated the procedure well without signs or symptoms of complications prior to transfer to the recovery area for further monitoring. The patient was then transferred to the recovery area where they were observed for an appropriate period of time after the injection. The patient reported a VAS score of 7 prior to the procedure and a post-procedure VAS of 0. POST OP INSTRUCTIONS The patient was provided a Pain Log to continue to record their response to the target-specific procedure prior to follow-up visit with their referring physician. Additionally, specific post-injection care instructions and a contact number to our office were provided if concerns arise regarding possible complications associated with the procedure are suspected.
== END 2020-11-07 15:01 | disposition home or self-care (01) ==
PROVIDERS: PCP Family Medicine; Referring Provider Physical Medicine & Rehabilitation; Visit Provider Physical Medicine & Rehabilitation
DX: M47.816 Spondylosis without myelopathy or radiculopathy, lumbar region (principal); M51.36 Other intervertebral disc degeneration, lumbar region; M54.5 Low back pain
CPT/HCPCS: 64493; J0702; J2250; J3010

== ENCOUNTER → 2021-01-13 16:40 | Outpatient (CLI) | payer OTHER, MEDICAID, SELFPAY ==
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
[2021-01-13 18:14] LABS: Add Manual Diff / Slide Review NO; Basophils Absolute Auto 100 /uL (0-100); Basophils Percent Auto 0.8 % (0-2); Eosinophils Absolute Auto 200 /uL (0-450); Eosinophils Percent Auto 3.2 % (2-4); Hematocrit 40.1 % (36-46); Hemoglobin 13.5 g/dL (12.0-16.0); Lymphocytes Absolute Auto 1900 /uL (1100-4500); Mean Corpuscular HGB Conc 33.6 % (30-36); Mean Corpuscular Hemoglobin 30.3 PG (26-34); Mean Corpuscular Volume 90.2 fL (80-100); Monocytes Absolute Auto 600 /uL (0-900); Monocytes Percent Auto 7.5 % (3-14); Neutrophils Absolute Auto 4700 /uL (1500-7000); Neutrophils Percent Auto 63.5 % (50-75); Platelet Count 220 X10^3/uL (150-400); Red Blood Cell Count 4.45 X10^6/uL (4.0-5.2); Red Cell Distribution Width 13.4 % (11.6-14.8); White Blood Cell Count 7.5 X10^3/uL (4.5-11.0)
[2021-01-13 18:33] LABS: Alanine Aminotransferase 15 IU/L (<35); Albumin 4.2 g/dL (3.5-5.0); Albumin Globulin Ratio 1.4 (1.0-2.8); Alkaline Phosphatase 88 U/L (38-126); Aspartate Aminotransferase 25 IU/L (14-36); BUN Creatinine Ratio 23.4 (6-22); Bilirubin Total 0.3 mg/dL (0.2-1.3); Blood Urea Nitrogen 25 mg/dL (7-17); Calcium 9.7 mg/dL (8.4-10.2); Carbon Dioxide 23 mmol/L (22-32); Chloride 110 mmol/L (98-107); Estimated Glomerular Filt Rate 53.2 mL/min (>60); Globulin 2.9 g/dL (1.7-4.1); Glucose 91 mg/dL (70-100); HEMOLYSIS 19 (0-50); Potassium 4.1 mmol/L (3.4-5.1); Sodium 138 mmol/L (137-145); Total Protein 7.1 g/dL (6.3-8.2)
[2021-01-13 18:36] LABS: Hemoglobin A1C% w Est Avg Glu 5.2 % (4.0-6.0)
[2021-01-13 19:06] LABS: Thyroid Stimulating Hormone 0.049 uIU/mL (0.47-4.68)
[2021-01-13 19:18] LABS: HIV 1 & 2 Ab/Ag 4th Gen Combo NEGATIVE (NEGATIVE)
[2021-01-13 19:22] LABS: Vitamin B12 608 pg/mL (239-931)
[2021-01-15 12:08] LABS: Free T4, Direct Thyroxine 1.84 ng/dL (0.78-2.19)
[2021-01-17 15:38] LABS: QuantiFERON Mitogen Value >10.00 IU/mL (.); QuantiFERON Nil Value 0.02 IU/mL (.); QuantiFERON TB Gold Plus Negative (Negative); QuantiFERON TB1 Ag Value 0.06 IU/mL (.); QuantiFERON TB2 Ag Value 0.05 IU/mL (.)
== END ==
PROVIDERS: PCP Family Medicine; Referring Provider Family Medicine; Visit Provider Family Medicine
DX: M25.551 Pain in right hip (principal); M16.0 Bilateral primary osteoarthritis of hip; Z11.1 Encounter for screening for respiratory tuberculosis; E53.8 Deficiency of other specified B group vitamins; R82.2 Biliuria; R31.9 Hematuria, unspecified; E78.5 Hyperlipidemia, unspecified; N26.1 Atrophy of kidney (terminal); R23.8 Other skin changes; D84.9 Immunodeficiency, unspecified; I10 Essential (primary) hypertension; E03.9 Hypothyroidism, unspecified
CPT/HCPCS: 36415; 73502; 80053; 82607; 83036; 84439; 84443; 85025; 86480; 87389

== ENCOUNTER → 2021-01-28 08:27 | Outpatient (CLI) | payer OTHER, SELFPAY ==
[2021-01-28 12:38] LABS: COVID19 -Nasal RAPID Negative (Negative)
== END ==
PROVIDERS: PCP Family Medicine; Visit Provider Physical Medicine & Rehabilitation
DX: Z20.822 Contact with and (suspected) exposure to COVID-19 (principal)
CPT/HCPCS: 87635; C9803

== ENCOUNTER 2021-01-30 12:42 | Outpatient (CLI) | payer OTHER, SELFPAY ==
[2021-01-30] VITALS (14 sets, daily range): BP systolic 86–133; BP diastolic 48–66; PULSE 54–92; RESP 11–24; TEMP 36.5; O2SAT 95–100
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
[2021-01-30] MEDS: SODIUM CHLORIDE 0.9% 250 ML IV ×2 (13:05→13:50)
--- NOTE | 2021-01-30 13:29 | PC.NURSE ---
At approx 1302 pt reported seeing spots after her IV start. Pt was placed in trendelenburg position and a saline bolus was started. See vital signs from [id number].
[2021-01-30] MEDS: MIDAZOLAM 5 MG/5 ML VIAL IV (13:54)
[2021-01-30] MEDS: BUPIVACAINE 0.5% (PF) VIAL 2 ML INJ (14:00)
[2021-01-30] MEDS: IOPAMIDOL 15 ML VIAL 3 ML INJ (14:00)
[2021-01-30] MEDS: LIDOCAINE 1% 20 ML 10 ML INJ (14:01)
--- NOTE | 2021-01-30 14:06 | PM.PROC.IR.1 ---
Date/Time/Diagnoses Date of procedure: 01/30/21 Time of procedure: 14:06 Pre-procedure diagnosis: 1. FACET ARTHROPATHY Post-procedure diagnosis: same Procedure Notes Procedure: 1. Right L5 and S1 MB BLOCKS Indications: Nancy is referred by Dr. Moore for treatment of Right Axial LBP. Physician: Zaheer Mcnamara Total Fluoroscopy time (seconds): 7 Total sedation minutes: 8 Complications: none Procedure in detail & Post-procedure care: DESCRIPTION OF PROCEDURE Fluoroscopically guided, contrast-controlled right L5 and S1 medial branch blocks with 0.5cc of 0.5% Marcaine. Following review of allergy and review of potential side effects and complications, including, but not necessarily limited to, infection, allergic reaction, local tissue breakdown, nerve injury, paralysis, stroke and possible , the patient indicated that the patient understood and agreed to proceed. An informed consent document was signed by the patient, witnessed by a nurse, and placed in the patient's chart. After review of previous anaesthesic history and IV conscious sedation the patient was deemed safe to proceed with today?s procedure with IV conscious sedation as ASA class II designation. Safety time-out was performed to confirm patient ID, procedure to be performed and site of procedure. IV sedation was accomplished with a combination of 2mg of Versed and 50mcg of Fentanyl was administered by the RN after DO order, titrated to patient comfort during the course of the procedure while the patient remained responsive to all verbal commands In the prone position, following sterile prep and drape of the lumbar region, the right L5 and S1 anatomical location of the medial branch of the dorsal ramus was identified fluoroscopically. Subsequently an anesthetic skin wheal using 1% lidocaine solution was initiated at each of the anatomical spots. Subsequently then a 22-gauge 3.5-inch spinal needle was atraumatically introduced and advanced under fluoroscopic guidance at each of the corresponding sites at the right L5 and S1 MB. After negative aspiration, 0.2 cc of Isovue 200 was injected, confirming placement without vascular or intrathecal uptake. Subsequently then 0.5 cc of 0.5% Marcaine solution was injected at each of the corresponding sites at the right L5 and S1 medial branch locations. The patient tolerated the procedure well without signs or symptoms of complications. The procedure tolerated the procedure well without signs or symptoms of complications prior to transfer to the recovery area continued monitoring without incident. Post-procedure, the patient was monitored initiating provocative activities to measure the amount of relief from block of the facetogenic pain. The patient reported a VAS of 7 prior to the procedure and a post-procedure VAS of 1. It has been a pleasure to assist in the diagnostic and therapeutic care of your patient. POST OP INSTRUCTIONS The patient was provided with a Pain Log to complete over the next several hours and subsequent days prior to the patient's follow up with the ordering physician. If the patient has mold closer helper relief to the solution applied, then they may be a candidate for medial branch rhizotomy. The patient is aware, was provided, once again, with a Pain Log and will follow up with the referring physician for review and clinical correlation.
--- NOTE | 2021-01-30 15:17 | PC.NURSE ---
Pt recovered completely and remained stable thru out her procedure. Returned to post procedure room in stable condition, ambulated safely from wc to recliner without difficulty
== END 2021-01-30 14:30 | disposition home or self-care (01) ==
LOC: RAD 12:43
PROVIDERS: PCP Family Medicine; Referring Provider Physical Medicine & Rehabilitation; Visit Provider Physical Medicine & Rehabilitation
DX: M47.817 Spondylosis without myelopathy or radiculopathy, lumbosacral region (principal); M54.5 Low back pain
CPT/HCPCS: 64493; 64494; 99152; J2250; J3010

== ENCOUNTER → 2021-03-11 09:46 | Outpatient (CLI) | payer OTHER, MEDICAID, SELFPAY ==
[2021-03-11 15:12] LABS: COVID19 -Nasal RAPID Negative (Negative)
== END ==
PROVIDERS: PCP Family Medicine; Visit Provider Physical Medicine & Rehabilitation
DX: Z20.822 Contact with and (suspected) exposure to COVID-19 (principal)
CPT/HCPCS: 87635; C9803

== ENCOUNTER 2021-03-13 13:42 | Outpatient (CLI) | payer OTHER, MEDICAID, SELFPAY ==
[2021-03-13] VITALS (8 sets, daily range): BP systolic 89–113; BP diastolic 53–78; PULSE 62–74; RESP 8–20; TEMP 36.3–36.5; O2SAT 94–99
--- NOTE | 2021-03-13 13:45 | DI.RAD.S_ITS ---
PROCEDURE: PAIN L/SI FACET INJ/BLK 1STL INDICATIONS: SPONDYLOSIS COMPARISON: [facility], , PAIN L/SI FACET INJ/BLK 1STL, 01/30/2021, 13:57. FINDINGS: Fluoroscopic spot filming was performed to verify placement of spinal needles at the L1, L2 and L3 levels on the right, as labeled on the films. Appropriate location(s) of the needle tip(s) was confirmed by injection of iodinated contrast. IMPRESSION: Intraprocedural examination within normal limits. Dictated by: Mat Agosto M.D. on 03/13/2021 at 15:32 Approved by: Mat Agosto M.D. on 03/13/2021 at 15:33
[2021-03-13] MEDS: MIDAZOLAM 5 MG/5 ML VIAL IV (14:33)
[2021-03-13] MEDS: IOPAMIDOL 15 ML VIAL 3 ML INJ (14:42)
[2021-03-13] MEDS: LIDOCAINE 1% 20 ML (14:42)
[2021-03-13] MEDS: BUPIVACAINE 0.5% (PF) VIAL 5 ML INJ (14:42)
--- NOTE | 2021-03-13 14:49 | P.PCN_ITS ---
Date/Time/Diagnoses Date of procedure: 03/13/21 Time of procedure: 14:49 Pre-procedure diagnosis: 1. FACET ARTHROPATHY Post-procedure diagnosis: same Procedure Notes Procedure: 1. Right L1, L2, L3 MB BLOCKS Indications: Nancy is referred by Dr. Shepard for treatment of Right Axial LBP. Physician: Zaheer Mcnamara Total Fluoroscopy time (seconds): 7 Total sedation minutes: 11 Complications: none Procedure in detail & Post-procedure care: DESCRIPTION OF PROCEDURE Fluoroscopically guided, contrast-controlled right L1, L2, L3 medial branch blocks with 0.5cc of 0.5% Marcaine. Following review of allergy and review of potential side effects and complications, including, but not necessarily limited to, infection, allergic reaction, local tissue breakdown, nerve injury, paralysis, stroke and possible , the patient indicated that the patient understood and agreed to proceed. An informed consent document was signed by the patient, witnessed by a nurse, and placed in the patient's chart. After review of previous anaesthesic history and IV conscious sedation the patient was deemed safe to proceed with today?s procedure with IV conscious sedation as ASA class II designation. Safety time-out was performed to confirm patient ID, procedure to be performed and site of procedure. IV sedation was accomplished with a combination of 4mg of Versed was administered by the RN after DO order, titrated to patient comfort during the course of the procedure while the patient remained responsive to all verbal commands In the prone position, following sterile prep and drape of the lumbar region, the right L1, L2, L3 anatomical location of the medial branch of the dorsal ramus was identified fluoroscopically. Subsequently an anesthetic skin wheal using 1% lidocaine solution was initiated at each of the anatomical spots. Subsequently then a 22-gauge 3.5-inch spinal needle was atraumatically introduced and advanced under fluoroscopic guidance at each of the corresponding sites at the right L1, L2, L3 MB. After negative aspiration, 0.2 cc of Isovue 200 was injected, confirming placement without vascular or intrathecal uptake. Subsequently then 0.5cc of 0.5% Marcaine solution was injected at each of the corresponding sites at the right L1, L2, L3 medial branch locations. The patient tolerated the procedure well without signs or symptoms of complications. The procedure tolerated the procedure well without signs or symptoms of complications prior to transfer to the recovery area continued monitoring without incident. Post-procedure, the patient was monitored initiating provocative activities to measure the amount of relief from block of the facetogenic pain. The patient reported a VAS of 7 prior to the procedure and a post-procedure VAS of 1. It has been a pleasure to assist in the diagnostic and therapeutic care of your patient. POST OP INSTRUCTIONS The patient was provided with a Pain Log to complete over the next several hours and subsequent days prior to the patient's follow up with the ordering physician. If the patient has lockstitch sleeve setter relief to the solution applied, then they may be a candidate for medial branch rhizotomy. The patient is aware, was provided, once again, with a Pain Log and will follow up with the referring physician for review and clinical correlation.
== END 2021-03-13 15:05 | disposition home or self-care (01) ==
PROVIDERS: PCP Family Medicine; Referring Provider Physical Medicine & Rehabilitation; Visit Provider Physical Medicine & Rehabilitation
DX: M47.816 Spondylosis without myelopathy or radiculopathy, lumbar region (principal); M54.5 Low back pain
CPT/HCPCS: 64493; 64494; 99152; J1200; J2250; J2405; J3010

== ENCOUNTER → 2021-03-20 14:41 | Outpatient (CLI) | payer OTHER, MEDICAID, SELFPAY ==
--- NOTE | 2021-03-20 14:44 | DI.US.S_ITS ---
PROCEDURE: US PELVIC COMPLETE INDICATIONS: Pelvic and perineal pain TECHNIQUE: Real-time scanning was performed of the pelvic organs, with image documentation. Additional endovaginal scanning was necessary due to incomplete visualization of the adnexal and endometrial structures by transabdominal scanning. COMPARISON: [facility], CT, CT ABDOMEN PELVIS W CON, 08/18/2020, 7:07. [facility], CT, CT ABDOMEN PELVIS W CON, 08/15/2020, 17:19. [facility], US, US PELVIC COMPLETE, 06/26/2020, 15:29. FINDINGS: Uterus: Uterus is normal in size at 5.4 x 3 x 3.5 cm. The endometrium measures 3 mm in combined thickness. The endometrial stripe is obscured by this patient's anterior intramural fibroid that measures 3.2 x 2.8 x 4 cm. Ovaries: The right ovary measures 1.7 x 0.8 x 1.4 cm and demonstrates a cystic follicle that measures up to 8 mm, which is considered to be within physiologic limits. The left ovary measures 2 x 1.2 x 1.6 cm. The ovaries have a normal sonographic appearance. No adnexal masses are seen. Normal appearing arterial waveforms are confirmed to each ovary. Other: No pathologic free abdominal or pelvic fluid. Tenderness is noted when scanning the left adnexal region. IMPRESSION: Tenderness is noted when scanning over the left adnexal region, yet without an ultrasound abnormality seen at this site. 4 cm anterior fibroid noted. Dictated by: Mat Agosto M.D. on 03/20/2021 at 16:37 Approved by: Mat Agosto M.D. on 03/20/2021 at 16:39
== END ==
PROVIDERS: PCP Family Medicine; Referring Provider Obstetrics & Gynecology; Visit Provider Obstetrics & Gynecology
DX: R39.89 Other symptoms and signs involving the genitourinary system (principal); N95.0 Postmenopausal bleeding; R10.2 Pelvic and perineal pain; D25.1 Intramural leiomyoma of uterus
CPT/HCPCS: 76830; 76856

== ENCOUNTER → 2021-04-22 16:09 | Outpatient (ROUT) | payer OTHER, SELFPAY ==
[2021-04-22 16:11] LABS: COVID19 -Nasal RAPID Negative (Negative)
== END ==
PROVIDERS: PCP Family Medicine; Visit Provider Physical Medicine & Rehabilitation
DX: Z20.822 Contact with and (suspected) exposure to COVID-19 (principal)
CPT/HCPCS: 87635; C9803

== ENCOUNTER 2021-04-24 15:27 | Outpatient (CLI) | payer OTHER, MEDICAID, SELFPAY ==
--- NOTE | 2021-04-24 15:28 | DI.RAD.S_ITS ---
PROCEDURE: PAIN L/SI FACET INJ/BLK 1STL INDICATIONS: Right L5 and S1 medial branch block COMPARISON: [facility], , PAIN L/SI FACET INJ/BLK 1STL, 03/13/2021, 14:39. FINDINGS/IMPRESSION: Fluoroscopic spot filming was performed to verify placement of spinal needles at the right L5-S1 level(s), as labeled on the films. Appropriate location(s) of the needle tip(s) was confirmed by injection of iodinated contrast. Dictated by: Edwin Bartlett M.D. on 04/24/2021 at 17:17 Approved by: Edwin Bartlett M.D. on 04/24/2021 at 17:18
[2021-04-24 15:35] VITALS: BP 112/55; PULSE 74; RESP 16; TEMP 36.3; O2SAT 96
[2021-04-24 16:10] VITALS: BP 104/57; PULSE 64; RESP 10; O2SAT 99
[2021-04-24] MEDS: IOPAMIDOL 15 ML VIAL 3 ML INJ (16:12)
[2021-04-24] MEDS: BUPIVACAINE 0.5% (PF) VIAL 2 ML INJ (16:13)
[2021-04-24 16:15] VITALS: BP 106/58; PULSE 62; RESP 22; O2SAT 97
--- NOTE | 2021-04-24 16:19 | PM.PROC.IR.1 ---
Date/Time/Diagnoses Date of procedure: 04/24/21 Time of procedure: 16:19 Pre-procedure diagnosis: 1. FACET ARTHROPATHY Post-procedure diagnosis: same Procedure Notes Procedure: 1. Right L5 and S1 MB BLOCKS Indications: Nancy is referred by Dr. Shepard for treatment of Right Axial LBP. Physician: Zaheer Mcnamara Total Fluoroscopy time (seconds): 3 Total sedation minutes: 0 Complications: none Procedure in detail & Post-procedure care: DESCRIPTION OF PROCEDURE Fluoroscopically guided, contrast-controlled right L4, L5 and S1 medial branch blocks with 0.5cc of 0.5% Marcaine. Following review of allergy and review of potential side effects and complications, including, but not necessarily limited to, infection, allergic reaction, local tissue breakdown, nerve injury, paralysis, stroke and possible , the patient indicated that the patient understood and agreed to proceed. An informed consent document was signed by the patient, witnessed by a nurse, and placed in the patient's chart. After review of previous anaesthesic history and IV conscious sedation the patient was deemed safe to proceed with today?s procedure with IV conscious sedation as ASA class II designation. Safety time-out was performed to confirm patient ID, procedure to be performed and site of procedure. IV sedation was deemed unnecessary and thus not administered by the RN after DO order, titrated to patient comfort during the course of the procedure while the patient remained responsive to all verbal commands In the prone position, following sterile prep and drape of the lumbar region, the right L5 and S1 anatomical location of the medial branch of the dorsal ramus was identified fluoroscopically. Subsequently an anesthetic skin wheal using 1% lidocaine solution was initiated at each of the anatomical spots. Subsequently then a 22-gauge 3.5-inch spinal needle was atraumatically introduced and advanced under fluoroscopic guidance at each of the corresponding sites at the right L5 and S1 MB. After negative aspiration, 0.2 cc of Isovue 200 was injected, confirming placement without vascular or intrathecal uptake. Subsequently then 0.5 cc of 0.5% Marcaine solution was injected at each of the corresponding sites at the right L5 and S1 medial branch locations. The patient tolerated the procedure well without signs or symptoms of complications. The procedure tolerated the procedure well without signs or symptoms of complications prior to transfer to the recovery area continued monitoring without incident. Post-procedure, the patient was monitored initiating provocative activities to measure the amount of relief from block of the facetogenic pain. The patient reported a VAS of 7 prior to the procedure and a post-procedure VAS of 1. It has been a pleasure to assist in the diagnostic and therapeutic care of your patient. POST OP INSTRUCTIONS The patient was provided with a Pain Log to complete over the next several hours and subsequent days prior to the patient's follow up with the ordering physician. If the patient has semiconductors wafer breaker relief to the solution applied, then they may be a candidate for medial branch rhizotomy. The patient is aware, was provided, once again, with a Pain Log and will follow up with the referring physician for review and clinical correlation.
[2021-04-24 16:20] VITALS: BP 121/61; PULSE 62; RESP 16; O2SAT 98
== END 2021-04-24 16:44 | disposition home or self-care (01) ==
PROVIDERS: PCP Family Medicine; Referring Provider Physical Medicine & Rehabilitation; Visit Provider Physical Medicine & Rehabilitation
DX: M47.816 Spondylosis without myelopathy or radiculopathy, lumbar region (principal); M47.817 Spondylosis without myelopathy or radiculopathy, lumbosacral region
CPT/HCPCS: 64493; J2250; J3010

== ENCOUNTER → 2021-05-29 15:54 | Outpatient (CLI) | payer OTHER, MEDICAID, SELFPAY ==
--- NOTE | 2021-05-29 | DI.RAD.S_ITS ---
PROCEDURE: XR WRIST LT MIN 3V INDICATIONS: LEFT WRIST PAIN TECHNIQUE: 3 views of the wrist were acquired. COMPARISON: None. FINDINGS: Bones: No fractures or dislocations. No suspicious bony lesions. Soft tissues: No suspicious soft tissue calcifications. IMPRESSION: No evidence acute bony abnormality of the left wrist. If clinical suspicion and/or symptoms persist, further assessment with repeat plain films, or advanced imaging (e.g., CT, MRI, or bone scan) may be helpful for further assessment. Dictated by: Leonardo Holcomb M.D. on 05/29/2021 at 16:58 Approved by: Leonardo Holcomb M.D. on 05/29/2021 at 16:59
== END ==
PROVIDERS: PCP Family Medicine; Referring Provider Family Medicine; Visit Provider Family Medicine
DX: M25.532 Pain in left wrist (principal)
CPT/HCPCS: 73110

== ENCOUNTER 2021-06-04 14:30 | Outpatient (RCR) | payer OTHER, SELFPAY ==
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
--- NOTE | 2021-12-17 15:57 | ST.OPDS ---
Visit Care Team Role Provider Type Andrei Shepard MD Primary Care Provider Physician [facility] [address] [place], [address] Mega Peguero MD Attending Provider Physician Referring Provider Address: [address] [place] [address], [id number] GRAPHICS SOFTWARE ENGINEER Treatment Note GRAPHICS SOFTWARE ENGINEER Treatment Note Start: 02/19/21 18:12 Freq: Status: Active Protocol: Document 12/17/21 15:56 CHRIS (Rec: 12/17/21 15:57 CHRIS [id number]) Speech Pathology Treatment Note Visit Information Insurance Information L&I Setting Treatment Setting Outpatient Care Visit Type Note Type Discharge Summary General Information Patient History Nancy is a 56 year old female with a history of a C6-7 ACDF surgery later followed by a surgery to replace the original cage from the ACDF surgery with a [place] Blue Steel Joint and clean up scar tissue. Nancy reports the original ACDF surgery was in 2009 and the second ACDF surgery was in 2015 or 2016. Nancy added that she had a modified barium swallow study in July or August of this year and saw an ENT about 2 years ago. Per Nancy, the ENT reported left vocal fold paresis. Per medical record, Nancy is a former smoker and currently uses marijuana 7 times per week. Nancy had a C5-6 artificial disc replacement following her initial C6-7 ACDF surgery and continues to experience a sharp, stabbing pain in her right lower back. BAYRON injections with Dr. Mcnamara have resolved right leg pain, though she continues to have pain across the lower back about 4-5/10 at rest but worse with activity. The barium swallow report was reviewed during visit on 11/13/2020 and showed mild esophageal dysmotility with mild tertiary contractions involving the lower one third of the esophagus. Subjective Observations/Patient Presentation The pt was last seen 06/04/21 and has not returned for continued therapy. She is discharged from services. Chief Complaint(s) Voice Objective Short Term Goals Voice: 1. The pt will perform relaxation techniques independently in structured tasks to implement optimal breath support and reduced laryngeal tension necessary to improve vocal quality. 2. The pt will read sentences without glottal chapman in 80% of opportunities to reduce negative vocal habits and improve quality of voice. 3. The pt will perform Forward Focus Resonance (FFR) technique with Semi-Occluded Vocal Tract (SOVT) tasks to improve vocal quality for speech. 4. The pt will perform pitch glides with continuous phonation and clear vocal quality to expand range and normalize fundamental frequency. 5. The pt will sustain phonation with clear vocal quality for 20 seconds to increase breath support for voicing. Dysphagia: 1. The pt will perform safe swallow strategies with oral intake independently to reduce risk of aspiration. 2. The pt will perform exercises to increase strength , coordination, and ROM of swallow musculature independently to reduce risk of aspiration and increase comfort with oral intake. [employer] Goals Voice: 1. The pt will perform relaxation techniques independently in spontaneous speech tasks to implement optimal breath support and reduced laryngeal tension necessary to improve vocal quality. 2. The pt will pt will produce glottal chapman in no more than 20% of conversational speech to reduce habitual laryngeal tension with voicing for long- term improvement of vocal quality. 3. The pt will produce pitch range WNL for adult female voices with clear vocal quality to normalize vocal function. 4. The pt will produce fundamental frequency WNL for adult females in conversation to reduce gender misidentification and its impacts on the pt. 5. The pt will score no greater than mild impact on Voice Handicap Index. 6. The pt will score no greater than mild impairment on CAPE-V rating form. Dysphagia: 1.The pt will safely tolerate least restrictive diet to meet her nutrition and hydration needs. Plan Therapy Recommendations Discharge from Speech Therapy
== END 2021-12-24 12:42 ==
LOC: SP 14:30
PROVIDERS: PCP Family Medicine; Referring Provider Orthopaedic Surgery; Visit Provider Orthopaedic Surgery
DX: R13.10 Dysphagia, unspecified (principal)
CPT/HCPCS: 92507; 92520; 92524; 92526; 92610

== ENCOUNTER → 2021-06-18 10:18 | Outpatient (CLI) | payer OTHER, SELFPAY ==
[2021-06-18 11:39] LABS: Appearance Urine UA CLEAR; Bilirubin Urine UA NEGATIVE (NEGATIVE); Color Urine UA YELLOW; Glucose Urine UA NEGATIVE (Negative); Ketones Urine UA NEGATIVE (NEGATIVE); Leukocyte Esterase Urine UA NEGATIVE (NEGATIVE); Nitrite Urine UA NEGATIVE (Negative); Occult Blood Urine UA TRACE-INTACT (Negative); Protein Urine UA NEGATIVE (Negative); Specific Gravity Urine UA 1.015 (1.000-1.035); Urobilinogen Urine UA 0.2 E.U./dL (0.2)
[2021-06-18 11:54] LABS: Bacteria Urine None Seen; Culture Indicated Urine Cult Not Indicated; RBC Urine 1-5/HPF (0-5/HPF); Squamous Epithelial Cell Urine 5-10 /HPF (0-5/HPF); WBC Urine 1-5/HPF (0-5/HPF)
== END ==
PROVIDERS: PCP Family Medicine; Referring Provider Urology; Visit Provider Urology
DX: R35.0 Frequency of micturition (principal)
CPT/HCPCS: 81001

== ENCOUNTER → 2021-09-06 15:11 | Outpatient (CLI) | payer OTHER, MEDICAID, SELFPAY | PROVIDERS: PCP Family Medicine; Visit Provider Physician Assistant | DX: N39.0 Urinary tract infection, site not specified (principal) | CPT/HCPCS: 81002; 87086 ==

== ENCOUNTER → 2021-11-18 13:02 | Outpatient (CLI) | payer OTHER, SELFPAY ==
[2021-11-18 15:02] LABS: COVID19 -Nasal RAPID Negative (Negative)
== END ==
PROVIDERS: PCP Family Medicine; Visit Provider Physical Medicine & Rehabilitation
DX: Z20.822 Contact with and (suspected) exposure to COVID-19 (principal)
CPT/HCPCS: 87635; C9803

== ENCOUNTER 2021-11-20 10:33 | Outpatient (CLI) | payer OTHER, SELFPAY ==
[2021-11-20] VITALS (11 sets, daily range): BP systolic 91–128; BP diastolic 51–60; PULSE 53–61; RESP 14–20; TEMP 36.1; O2SAT 96–100
--- NOTE | 2021-11-20 10:35 | DI.RAD.S_ITS ---
PROCEDURE: PAIN L/S MED/LAT N RFA INDICATIONS: SPONDYLOSIS COMPARISON: [facility], XA, PAIN L/SI FACET INJ/BLK 1STL, 04/24/2021, 17:12. FINDINGS: Fluoroscopic spot filming was performed to verify placement of spinal needles on the right at the L5 and S1 levels, as labeled on the films. IMPRESSION: Intraprocedural examination demonstrating appropriate positions of the needles. Dictated by: Mat Agosto M.D. on 11/20/2021 at 12:08 Approved by: Mat Agosto M.D. on 11/20/2021 at 12:09
[2021-11-20] MEDS: MIDAZOLAM 2 MG/2 ML VIAL (11:54)
[2021-11-20] MEDS: BUPIVACAINE 0.5% (PF) VIAL 5 ML INJ (12:00)
[2021-11-20] MEDS: LIDOCAINE 1% 20 ML (12:00)
--- NOTE | 2021-11-20 12:19 | P.PCN_ITS ---
Date/Time/Diagnoses Date of procedure: 11/20/21 Time of procedure: 12:19 Pre-procedure diagnosis: 1. RECALCITRANT FACET ARTHROPATHY Post-procedure diagnosis: same Procedure Notes Procedure: 1. RIGHT L5 MEDIAL BRANCH RADIOFREQUENCY NEUROTOMY AND RIGHT S1 DORSAL RAMUS BRANCH RADIOFREQUENCY NEUROTOMY. Indications: Nancy is referred by Dr. Shepard for treatment of facet arthropathy. Physician: Zaheer Mcnamara Total Fluoroscopy time (seconds): 10 Total sedation minutes: 20 Complications: none Procedure in detail & Post-procedure care: DESCRIPTION OF PROCEDURE Right L5 medial branch radiofrequency neurotomy and right S1 dorsal ramus branch radiofrequency neurotomy under fluoroscopy with conscious sedation. The patient is well known to this clinic having undergone previous facet injections with good but temporary relief. The patient has experienced appropriate, concordant relief with previous facet and median branch blocks but the patient's pain has been recalcitrant to further conservative measures. Therefore, based upon the patient's relief and persistent symptoms, the patient is considered an appropriate candidate for facet rhizotomy. All of the patient's questions regarding the risks versus benefits of the procedure, including, but not limited to, bleeding, infection, temporary as well as lasting nerve injury, paralysis, stroke, and , as well treatment alternatives were answered to satisfaction. After review of previous anaesthesic history and IV conscious sedation the patient was deemed safe to proceed with today?s procedure with IV conscious sedation as ASA class II designation. Safety time-out was performed to confirm patient ID, procedure to be performed and site of procedure. IV sedation was accomplished with a combination of 2mg of Versed was administered by the RN after DO order, titrated to patient comfort during the course of the procedure while the patient remained responsive to all verbal commands. After obtaining informed consent, denial of pertinent drug allergies, as well as being made aware of the potential risks of bleeding, infection, spinal cord trauma, paralysis, temporary and permanent nerve damage, seizure, stroke, and possible , the patient was brought to the fluoroscopy suite and positioned prone on the fluoroscopy table. The lumbar region was prepped with Betadine and covered with a fenestrated drape in the usual sterile fashion. Appropriate monitors applied including pulse oximeter, pulse, and blood pressure for regular monitoring throughout the procedure. After local infiltration using 1% lidocaine, under fluoroscopic guidance, a 10- cm RF insulated needle with a 10-mm active tip was positioned parallel to the junction of the right sacral ala and the superior articulating process where the S1 dorsal ramus resides. Needle placement was confirmed with sensory stimulation at 50 Hz, with motor stimulation of .5v on the right which produced local stimulation without radicular component. The stimulation was then incr eased to 2v with, once again, only local multifidus stimulation without radicular component. This was then followed by two discreet lesions performed at 80 degrees Celsius for 90 seconds each. The needle was then removed and the identical procedure was performed along the length of the right L5 medial branch with motor stimulation at .7v on the right. The patient tolerated the procedure well without signs or symptoms of complications prior to transfer to the recovery area continued monitoring without incident. The patient was then transferred to the recovery area where they were observed for an appropriate period of time after the injection. The patient was then transferred to the recovery area where they were observed for an appropriate period of time after the injection. The patient reported a VAS score of 8 prior to the procedure and a post- procedure VAS of 2. POST OP INSTRUCTIONS The patient was provided a Pain Log to continue to record the patient's response to the target-specific procedure prior to the patient's follow-up visit with the referring physician. Additionally, specific post-injection care instructions and a contact number to our office were provided if concerns arise regarding possible complications associated with the procedure are suspected.
== END 2021-11-20 12:39 | disposition home or self-care (01) ==
LOC: RAD 10:35
PROVIDERS: PCP Family Medicine; Referring Provider Physical Medicine & Rehabilitation; Visit Provider Physical Medicine & Rehabilitation
DX: M47.816 Spondylosis without myelopathy or radiculopathy, lumbar region (principal); M47.817 Spondylosis without myelopathy or radiculopathy, lumbosacral region
CPT/HCPCS: 64635; 64636; 99152; J2250

== ENCOUNTER → 2022-02-11 16:04 | Outpatient (CLI) | payer OTHER, MEDICAID, SELFPAY ==
[2022-02-11 17:51] LABS: Add Manual Diff / Slide Review NO; Basophils Absolute Auto 100 /uL (0-100); Basophils Percent Auto 0.8 % (0-2); Eosinophils Absolute Auto 300 /uL (0-450); Eosinophils Percent Auto 3.4 % (2-4); Hemoglobin 13.6 g/dL (12.0-16.0); Lymphocytes Absolute Auto 2000 /uL (1100-4500); Lymphocytes Percent Auto 25.6 % (25-40); Mean Corpuscular HGB Conc 34.1 % (30-36); Mean Corpuscular Hemoglobin 30.3 PG (26-34); Mean Corpuscular Volume 88.9 fL (80-100); Monocytes Absolute Auto 600 /uL (0-900); Monocytes Percent Auto 7.8 % (3-14); Neutrophils Absolute Auto 4800 /uL (1500-7000); Neutrophils Percent Auto 62.4 % (50-75); Platelet Count 240 X10^3/uL (150-400); Red Cell Distribution Width 12.9 % (11.6-14.8); White Blood Cell Count 7.7 X10^3/uL (4.5-11.0)
[2022-02-11 18:28] LABS: Hemoglobin A1C% w Est Avg Glu 5.5 % (4.0-6.0)
[2022-02-11 18:32] LABS: Alanine Aminotransferase 12 IU/L (<35); Albumin 4.1 g/dL (3.5-5.0); Albumin Globulin Ratio 1.4 (1.0-2.8); Alkaline Phosphatase 65 U/L (38-126); Aspartate Aminotransferase 25 IU/L (14-36); BUN Creatinine Ratio 20.2 (6-22); Bilirubin Total 0.4 mg/dL (0.2-1.3); Blood Urea Nitrogen 24 mg/dL (7-17); Calcium 9.4 mg/dL (8.4-10.2); Carbon Dioxide 22 mmol/L (22-32); Chloride 110 mmol/L (98-107); Cholesterol 278 mg/dL (140-199); Estimated Glomerular Filt Rate 54 mL/min (>60); Globulin 2.9 g/dL (1.7-4.1); Glucose 81 mg/dL (70-100); HDL Cholesterol 37 mg/dL (40-60); HEMOLYSIS < 15 (0-50); LDL Cholesterol Calculated 189 mg/dL (<100); Potassium 4.1 mmol/L (3.4-5.1); Sodium 137 mmol/L (137-145); Triglycerides 262 mg/dL (35-150)
[2022-02-11 18:43] LABS: Vitamin D 25 Hydroxy (D3) 47.2 ng/mL (30.0-100.0)
[2022-02-11 18:58] LABS: TSH w/ Reflex to FT4 < 0.02 uIU/mL (0.47-4.68)
[2022-02-11 19:21] LABS: Vitamin B12 527 pg/mL (239-931)
[2022-02-11 22:50] LABS: Free T4, Direct Thyroxine 1.86 ng/dL (0.78-2.19)
== END ==
PROVIDERS: PCP Family Medicine; Referring Provider Family Medicine; Visit Provider Family Medicine
DX: E78.5 Hyperlipidemia, unspecified (principal); R53.83 Other fatigue; I10 Essential (primary) hypertension; E03.9 Hypothyroidism, unspecified
CPT/HCPCS: 36415; 80053; 80061; 82306; 82607; 83036; 84439; 84443; 85025

== ENCOUNTER → 2022-04-30 13:01 | Outpatient (CLI) | payer OTHER, MEDICAID, SELFPAY ==
--- NOTE | 2022-04-30 13:03 | DI.ECHO.S_ITS ---
[facility] +---------+ : : [address] : : : : [id number] : : : : Phone: [phone]---------+ Echocardiogram Report + + :Name: AMEYA MAYO Study Date: 04/30/2022 Height: 66 in : :[facility] ReadingLocation: Weight: 165 lb : : Gender: Female BSA: 1.8 m2 : :: 1965 Age: 56 yrs BP: 134/71 mmHg: :Reason For Study: SHORTNESS OF BREATH : :Ordering Physician: QUIN, : :MARCO Performed By: aTna Ortiz : :Referring: MARCO TSAI : + + Interpretation Summary The left ventricle is normal in size and wall thickness. The ejection fraction is estimated to be 60-65%. The right ventricle is normal in size and function. There is mild tricuspid regurgitation. The right ventricular systolic pressure is estimated to be at least 22 mmHg based on an estimated right atrial pressure of 3 mm Hg. The ascending aorta is mildly enlarged. 4.0 cm in diameter. Procedure: A two-dimensional transthoracic echocardiogram with color flow and Doppler was performed. The study quality was technically adequate. There is no prior echocardiogram noted for this patient. The patient was in sinus bradycardia with heart rates between 45-53 bpm during the exam. Left Ventricle: The left ventricle is normal in size and wall thickness. There is no thrombus. The ejection fraction is estimated to be 60-65%. There are no focal wall motion abnormalities. MV E/A: 1.4 Med Peak E' Pankaj: 7.3 cm/sec E/E' med: 13.7. Right Ventricle: The right ventricle is normal in size and function. Atria: The left atrial size is normal. Right atrial size is normal. There is no Doppler evidence for an interatrial shunt. Mitral Valve: The mitral valve is normal in structure and function. There is trace mitral regurgitation. Aortic Valve: The aortic valve is trileaflet. The aortic valve opens well. There is no aortic valve stenosis. There is trace aortic regurgitation. Tricuspid Valve: The tricuspid valve is normal in structure and function. There is mild tricuspid regurgitation. The right ventricular systolic pressure is estimated to be at least 22 mmHg based on an estimated right atrial pressure of 3 mm Hg. Pulmonic Valve: The pulmonic valve leaflets are thin and pliable; valve motion is normal. There is mild pulmonic regurgitation. Great Vessels: The aortic root is normal size. The ascending aorta is mildly enlarged. The IVC is of normal diameter and collapses greater than 50% with a sniff. This suggests a low right atrial pressure of 3 mm Hg. Pericardium/ Pleura There is no pericardial effusion. There is no pleural effusion. MMode/2D Measurements & Calculations LVIDd: 4.9 cm LVOT diam: 2.2 cm LVIDs: 3.0 cm Ao root diam: 3.1 cm FS: 38.4 % asc Aorta Diam: 4.0 cm IVSd: 0.91 cm Ao Arch Diam (Prox Trans): 2.8 cm LVPWd: 0.89 cm LV alejo. diameter/BSA (cm/m^2): 2.7 LV sys. diameter/BSA (cm/m^2): 1.6 LA A2 area: 20.9 cm2 RA long axis: 5.4 cm LA A4 area: 18.7 cm2 RA area: 16.1 cm2 LA length (vol): 5.5 cm RA vol: 40.3 ml LA vol: 59.6 ml RA : 21.8 ml/m2 LA vol index: 32.3 ml/m2 IVC diam: 1.1 cm RVD1 (basal): 3.1 cm RVD2 (mid): 2.3 cm TAPSE: 1.9 cm Doppler Measurements & Calculations Ao V2 max: 157.8 cm/sec LVOT Max Pankaj: 108.2 cm/sec Ao V2 mean: 109.5 cm/sec LV V1 max P.7 mmHg Ao max P.0 mmHg LV V1 VTI: 26.4 cm Ao mean P.5 mmHg JUNI(I,D): 2.5 cm2 Ao V2 VTI: 38.1 cm JUNI(V,D): 2.5 cm2 sev ratio: 0.69 JUNI indexed to BSA (cm^2/m^2): 1.4 MV E max pankaj: 100.1 cm/sec TR max pankaj: 219.2 cm/sec MV A max pankaj: 72.3 cm/sec TR max P.2 mmHg MV E/A: 1.4 PA V2 max: 100.9 cm/sec Med Peak E' Pankaj: 7.3 cm/sec PA V2 mean: 71.9 cm/sec E/E' med: 13.7 PA mean P.3 mmHg Lat Peak E' Pankaj: 12.6 cm/sec PA pr(Accel): 19.1 mmHg E/E' lat: 7.9 E/e' average: 10.8 MV dec time: 0.20 sec SV([facility]): 95.9 ml Reading Physician:05:36 PM
[2022-04-30 14:08] LABS: COVID19 -Nasal RAPID Negative (Negative)
--- NOTE | 2022-04-30 19:18 | DI.NM.S_ITS ---
DATE OF SERVICE: 04/30/2022 PROCEDURE: Exercise stress test. INDICATION: Palpitation, shortness of breath. CARDIAC STRESS: The patient underwent exercise stress test under the supervision of an attending staff. She walked on Kevin protocol for 9 minutes and 01 seconds, achieved maximum heart rate of 141, which was 86 percent of target heart rate. Baseline blood pressure 130/78. Peak blood pressure 200/100 mmHg. Baseline rhythm was sinus with mild sinus bradycardia rate about 57 beats per minute. During stress, there were no convincing ischemic changes seen. At around 1 minute and 50 seconds in recovery, the patient has a brief run of ventricular bigeminy without any complex ventricular arrhythmias, like ventricular tachycardia. During stress, there were no significant arrhythmias. No chest pain. The patient felt fatigue. CONCLUSION: Exercise stress test is negative for inducible ischemia. Peak blood pressure 200/100 mmHg and resting blood pressure 130/78 mmHg. Normal heart rate response. Achieved 10.1 metabolic equivalents of workload. Functional aerobic impairment -25 percent, suggestive of good exercise tolerance. No complex arrhythmias. Brief run of ventricular bigeminy in recovery. No anginal symptoms. Overall, low-risk exercise stress test. Nancy Mancera - ASHVIN/hosea/rafa doc#: [id number]/job#: [id number] dd: 04/30/2022 17:13:00 dt: 04/30/2022 18:25:00 DICTATING /COPIES TO: Álvaro Shearer MD COPIES MNE: VASHTI;
== END ==
PROVIDERS: PCP Family Medicine; Referring Provider Internal Medicine Cardiovascular Disease; Visit Provider Internal Medicine Cardiovascular Disease
DX: I07.1 Rheumatic tricuspid insufficiency (principal); I77.89 Other specified disorders of arteries and arterioles; R06.02 Shortness of breath; R42 Dizziness and giddiness; R00.2 Palpitations; Z20.822 Contact with and (suspected) exposure to COVID-19
CPT/HCPCS: 87635; 93017; 93306

== ENCOUNTER 2022-06-18 13:45 | Outpatient (RCR) | payer OTHER, MEDICAID, SELFPAY ==
--- NOTE | 2022-02-26 19:34 | PT.OIE ---
Current Diagnoses Stress incontinence (female) (male) (02/26/22) Urge incontinence (02/26/22) Unspecified urinary incontinence (02/26/22) Past Medical History (Last Reviewed 01/28/22 @ 15:55 by Zaheer Mcnamara DO) Anemia Facet arthropathy, lumbar Fibromyalgia Healthy adult Herniated nucleus pulposus, L2-3 Herniated nucleus pulposus, L4-5 Herniated nucleus pulposus, lumbar Hyperlipidemia Hypothyroid Kidney disease Lumbar radiculopathy, chronic Migraines Other spondylosis with radiculopathy, lumbosacral region Seizures UTI (urinary tract infection) Past Surgical History (Last Reviewed 01/28/22 @ 15:55 by Zaheer Mcnamara DO) Hx of neck surgery Visit Care Team Role Provider Type Andrei Shepard MD Primary Care Provider Physician Specialty: Family [facility] Address: [facility] [place], [address] Email: [email or web address] Mega Peguero MD Attending Provider Physician Referring Provider Specialty: Orthopedic Surgery Address: [address] [place] [address], [id number] Email: Physical Therapy Initial Evaluation PT-OP-A Visit Information Start: 02/26/22 13:46 Freq: Status: Active Protocol: Document 02/26/22 13:46 [facility] (Rec: 02/26/22 14:30 [facility] [id number]) Out-Patient Physical Therapy Visit Information Visit Information Visit Type Initial Evaluation Visit Start Time 13:45 Visit Stop Time 14:30 Total Visit Minutes 45 Visit Number 1 Evaluation Information Evaluation Date 02/26/22 PT-OP-B Current Condition Start: 02/26/22 13:46 Freq: Status: Active Protocol: Document 02/26/22 13:45 [facility] (Rec: 02/26/22 14:30 [facility] [id number]) Current Condition History of Current Condition Onset Date urinary stress incontinence that is chronic in nature Current Complaints urinary incontinence that happens continually thoughout the day History of Current Condition August 08 2021 pt had a hysterectomy for uterine prolaspe and sling reversal due to it being so tight that it was difficult to void. She has a follow up due to still not being able to make it to the bathroom. The pelvic pressure is better since surgery. SHe has had a rhizotomy since last time she was in PT. Her pain is 1/2 of what it used to be but she has more muscle spasms that cripple her. She notes at this time she is worse with her leakage. PT drinks 1/2 gallon of water per day. She is taking 10 mg oxybuterine and merametric. Pt reports a constant leakage and she notes she often is unable to make it to the bathroom. She does report strong urges throughout the day. Pt has leakage at night even though she is getting up 2-3 times per night . She voids every 2 hours throughout the day. pt uses 4 poise pads per day and a overnight pad. Only one of her kidneys is functioning correctly, the right kidney is only 30% Prior Treatments and Tests medial brance rhizotomy performed 11/20/21 for R L5-S1, The L5 nerve root sleeve is flattened in the left foramen, multilevel facte hypertrophy Treatment Goals Patient/Caregiver Goals to reduce urinary incontinence PT-OP-I Pelvic Floor Start: 02/26/22 13:46 Freq: Status: Active Protocol: Document 02/26/22 13:45 [facility] (Rec: 02/26/22 14:30 [facility] [id number]) Pelvic Floor Assessment Urine Pelvic Floor Surgery Yes Urinary Symptoms Urge Sensation Leakage Size Large Other Leakage Causes leakage happens despite activity and is occuring all day long Leaks Per Day leaking is constant Voiding Frequency every 2-3 hours but if she waits too long urgency will begin Nocturia 2-4 Pads Used In 24 Hours 5 Urine Pad Type Depends Pelvic Clock Pelvic Clock 12-3 Atrophy Pelvic Clock 3-6 Atrophy Pelvic Clock 6-9 Atrophy Pelvic Clock 9-12 Atrophy Contraction Ability Voluntary Contraction Weak Voluntary Relaxation Weak Manual Muscle Testing Left 3 Manual Muscle Testing Right 3 Manual Muscle Testing Anterior 3 Manual Muscle Testing Posterior 3 Muscle Endurance (Seconds) 3 PT-OP-Q Treatments Start: 02/26/22 13:46 Freq: Status: Active Protocol: Document 02/26/22 13:45 [facility] (Rec: 02/26/22 19:27 [facility] [id number]) Therapeutic Exercises Supine Exercises pelvic floor long holds Reps/Minutes 5 reps holding 10 seconds and relaxing 10 seconds PT-OP-T Assessment and Plan Start: 02/26/22 13:46 Freq: Status: Active Protocol: Document 02/26/22 13:45 [facility] (Rec: 02/26/22 19:27 [facility] [id number]) Physical Therapy Assessment Rehab Potential Rehabilitation Potential Good Evaluation Complexity Number of Personal Factors/Comorbidities 1-2 Number of Body Systems Impaired 3 Clinical Presentation at Evaluation Evolving Impairments Impairments Activity Tolerance,Functional Activities,Functional Mobility ,Pain,Strength Other Impairments urinary incontinence Goals 3 Impairment Decreased pelvic floor endurance and Nancy is limited to a few repetitions of pelvic floor muscle facilitation only due to back spasms [employer] Forming Machine Tender Goal (LTG) Nancy is able to work up to 10 second hold time x 10 repetitions of pelvic floor contractions improving endurance and support for her bladder LTG Duration 12 weeks 2 Impairment urinary incontinence that occurs all day and Nancy goes through 5 poise pads per day Group Home Goal (LTG) Nancy is down to 2 or less pads per day and notes a overall reduction in urinary stress incontinence LTG Duration 12 weeks 1 Impairment Decreased pelvic floor strength 3/5 MMT Group Home Goal (LTG) Nancy is able to increase her pelvic floor strength by 1 muscle grade for improved support of her bladder LTG Duration 12 weeks Assessment Summary Assessment Nancy is a 56 year old female referred to PT for pelvic floor strength training for urinary incontinence. She has been seen previously in our clinic but returns to PT following a hysterectomy for uterine prolapse and a release of the bladder sling. Prior to surgery in July 2021 Nancy felt constant pelvic pressure and held for fully bend forward to void. She reports improved ability to fully void following surgery and is no longer complaining of the pelvic pressure. She continues to experience urinary incontience that occurs all day and at night. She reports continuous leakage despite activity. She goes through 5 poise pads per day and wakes 2-3 times per night to void. With examination she is weak in the levator ani testing 3/5 MMT. Nancy has difficulty with pelvic floor endurance and after a few repetitions she begins to experience back spasms. I started her today with just a few reps at a time but to try several times throughout the day. Nancy is a good candidate for PT for pelvic floor rehabilitation. Physical Therapy Plan Frequency and Duration Frequency of Treatment 1x/Week Duration of Treatment 12 Plan of Care Start Date 02/26/22 Plan of Care End Date 05/28/22 Therapeutic Interventions Therapeutic Interventions Home Exercise Program,Manual Therapy,Neuromuscular Re- education,Patient/Caregiver Education,Self-Care/Home Management,Therapeutic Exercises Modalities Biofeedback,Electric Stimulation Next Visit Focus/Plan Next Note Type Treatment Note Next Visit Plan Emg biofeedback for the pelvic floor for strength and endurance training, lumbar stabilization exercises and hip strengthening exercises
--- NOTE | 2022-02-26 19:35 | PT.OPPOC ---
Physical, Occupational & Speech Therapy At [facility] Current Diagnoses Stress incontinence (female) (male) (02/26/22) Urge incontinence (02/26/22) Unspecified urinary incontinence (02/26/22) Visit Care Team Role Provider Type Andrei Shepard MD Primary Care Provider Physician Specialty: Family Practice Address: [facility] [place], [address] Email: [email or web address] Mega Peguero MD Attending Provider Physician Referring Provider Specialty: Orthopedic Surgery Address: [address] [place] [address], [id number] Email: Plan Of Care PT-OP-T Assessment and Plan Start: 02/26/22 13:46 Freq: Status: Active Protocol: Document 02/26/22 13:45 [facility] (Rec: 02/26/22 19:27 [facility] [id number]) Physical Therapy Assessment Rehab Potential Rehabilitation Potential Good Evaluation Complexity Number of Personal Factors/Comorbidities 1-2 Number of Body Systems Impaired 3 Clinical Presentation at Evaluation Evolving Impairments Impairments Activity Tolerance,Functional Activities,Functional Mobility ,Pain,Strength Other Impairments urinary incontinence Goals 3 Impairment Decreased pelvic floor endurance and Nancy is limited to a few repetitions of pelvic floor muscle facilitation only due to back spasms Snf Goal (LTG) Nancy is able to work up to 10 second hold time x 10 repetitions of pelvic floor contractions improving endurance and support for her bladder LTG Duration 12 weeks 2 Impairment urinary incontinence that occurs all day and Nancy goes through 5 poise pads per day Snf Goal (LTG) Nancy is down to 2 or less pads per day and notes a overall reduction in urinary stress incontinence LTG Duration 12 weeks 1 Impairment Decreased pelvic floor strength 3/5 MMT Snf Goal (LTG) Nancy is able to increase her pelvic floor strength by 1 muscle grade for improved support of her bladder LTG Duration 12 weeks Assessment Summary Assessment Nancy is a 56 year old female referred to PT for pelvic floor strength training for urinary incontinence. She has been seen previously in our clinic but returns to PT following a hysterectomy for uterine prolapse and a release of the bladder sling. Prior to surgery in July 2021 Nancy felt constant pelvic pressure and held for fully bend forward to void. She reports improved ability to fully void following surgery and is no longer complaining of the pelvic pressure. She continues to experience urinary incontinence that occurs all day and at night. She reports continuous leakage despite activity. She goes through 5 poise pads per day and wakes 2-3 times per night to void. With examination she is weak in the levator ani testing 3/5 MMT. Nancy has difficulty with pelvic floor endurance and after a few repetitions she begins to experience back spasms. I started her today with just a few reps at a time but to try several times throughout the day. Nancy is a good candidate for PT for pelvic floor rehabilitation. Physical Therapy Plan Frequency and Duration Frequency of Treatment 1x/Week Duration of Treatment 12 Plan of Care Start Date 02/26/22 Plan of Care End Date 05/28/22 Therapeutic Interventions Therapeutic Interventions Home Exercise Program,Manual Therapy,Neuromuscular Re- education,Patient/Caregiver Education,Self-Care/Home Management,Therapeutic Exercises Modalities Biofeedback,Electric Stimulation Next Visit Focus/Plan Next Note Type Treatment Note Next Visit Plan Emg biofeedback for the pelvic floor for strength and endurance training, lumbar stabilization exercises and hip strengthening exercises Plan of Care Dates Plan of Care Start Date 02/26/22 Plan of Care End Date 05/28/22 Electronically Signed by: Audrey Chapin, PT 02/26/221934 If you are in agreement with this Plan of Care, please return a signed and dated copy. I have reviewed this Plan of Care and certify that the skilled therapy services above are required to meet the patient?s needs. Physician Signature Date Printed Name and Credentials Clinical Instructor Signature Printed Name and Credentials
--- NOTE | 2022-03-12 17:39 | PT.OTN ---
Current Diagnoses Stress incontinence (female) (male) (03/12/22) Urge incontinence (03/12/22) Unspecified urinary incontinence (03/12/22) Physical Therapy Treatment Note PT-OP-A Visit Information Start: 02/26/22 13:46 Freq: Status: Active Protocol: Document 03/12/22 13:54 [facility] (Rec: 03/12/22 14:05 [facility] [id number]) Out-Patient Physical Therapy Visit Information Visit Information Visit Type Treatment Note Visit Start Time 13:50 Visit Stop Time 14:30 Total Visit Minutes 40 Visit Number 2 PT-OP-B Current Condition Start: 02/26/22 13:46 Freq: Status: Active Protocol: Document 02/26/22 13:45 [facility] (Rec: 02/26/22 14:30 [facility] [id number]) Current Condition History of Current Condition Onset Date urinary stress incontinence that is chronic in nature Current Complaints urinary incontinence that happens continually thoughout the day History of Current Condition August 08 2021 pt had a hysterectomy for uterine prolaspe and sling reversal due to it being so tight that it was difficult to void. She has a follow up due to still not being able to make it to the bathroom. The pelvic pressure is better since surgery. SHe has had a rhizotomy since last time she was in PT. Her pain is 1/2 of what it used to be but she has more muscle spasms that cripple her. She notes at this time she is worse with her leakage. PT drinks 1/2 gallon of water per day. She is taking 10 mg oxybuterine and merametric. Pt reports a constant leakage and she notes she often is unable to make it to the bathroom. She does report strong urges throughout the day. Pt has leakage at night even though she is getting up 2-3 times per night . She voids every 2 hours throughout the day. pt uses 4 poise pads per day and a overnight pad. Only one of her kidneys is functioning correctly, the right kidney is only 30% Prior Treatments and Tests medial brance rhizotomy performed 11/20/21 for R L5-S1, The L5 nerve root sleeve is flattened in the left foramen, multilevel facte hypertrophy Treatment Goals Patient/Caregiver Goals to reduce urinary incontinence PT-OP-C Subjective Start: 02/26/22 13:46 Freq: Status: Active Protocol: Document 03/12/22 13:54 [facility] (Rec: 03/12/22 14:05 [facility] [id number]) OP-PT Subjective Patient Comments Patient Comments pt was able to work towards 2 xms per day. SHe also feels like the number of reps she is doing was good. PT-OP-I Pelvic Floor Start: 02/26/22 13:46 Freq: Status: Active Protocol: Document 02/26/22 13:45 [facility] (Rec: 02/26/22 14:30 [facility] [id number]) Pelvic Floor Assessment Urine Pelvic Floor Surgery Yes Urinary Symptoms Urge Sensation Leakage Size Large Other Leakage Causes leakage happens despite activity and is occuring all day long Leaks Per Day leaking is constant Voiding Frequency every 2-3 hours but if she waits too long urgency will begin Nocturia 2-4 Pads Used In 24 Hours 5 Urine Pad Type Depends Pelvic Clock Pelvic Clock 12-3 Atrophy Pelvic Clock 3-6 Atrophy Pelvic Clock 6-9 Atrophy Pelvic Clock 9-12 Atrophy Contraction Ability Voluntary Contraction Weak Voluntary Relaxation Weak Manual Muscle Testing Left 3 Manual Muscle Testing Right 3 Manual Muscle Testing Anterior 3 Manual Muscle Testing Posterior 3 Muscle Endurance (Seconds) 3 PT-OP-Q Treatments Start: 02/26/22 13:46 Freq: Status: Active Protocol: Document 03/12/22 13:54 [facility] (Rec: 03/12/22 14:05 [facility] [id number]) Therapeutic Exercises Supine Exercises quick flicks Reps/Minutes x 10 reps Comments pt feels spasm into her back resting tone Comments 1.2 uv pelvic floor long holds Reps/Minutes 5 second hold 10 sec rest Comments average 12.0 uv and max of 28 .4 Neuro Re-Education Treatment Other Activities EMG biofeedback Comments worked on relaxed awareness of the pelvic floor, diaphragmatic breathing with relaxation. Self-Care/Home Management Treatment Education Other Education urge deference technique PT-OP-T Assessment and Plan Start: 02/26/22 13:46 Freq: Status: Active Protocol: Document 03/12/22 13:45 [facility] (Rec: 03/12/22 17:39 [facility] [id number]) Physical Therapy Assessment Assessment Summary Assessment I had Nancy lay on heat for her pelvic floor exercises and this really helped decrease muscle spasms into her pelvic floor. She tolerated all but quick contractions. She was eduated on urge degerence technique today as well as progressed with her pelvic floor exercises. She requested heat again next visit Physical Therapy Plan Frequency and Duration Frequency of Treatment 1x/Week Duration of treatment (weeks) 12 Plan of Care Start Date 02/26/22 Plan of Care End Date 05/28/22 Therapeutic Interventions Therapeutic Interventions Home Exercise Program,Manual Therapy,Neuromuscular Re- education,Patient/Caregiver Education,Self-Care/Home Management,Therapeutic Exercises Modalities Biofeedback,Electric Stimulation Next Visit Focus/Plan Next Note Type Treatment Note Next Visit Plan review urge deference technique, progress pelvic floor strengthening, EMG biofeedback for improved resting tone and endurance training of the pelvic floor
--- NOTE | 2022-03-19 14:26 | PT.OTN ---
Current Diagnoses Stress incontinence (female) (male) (03/19/22) Urge incontinence (03/19/22) Unspecified urinary incontinence (03/19/22) Physical Therapy Treatment Note PT-OP-A Visit Information Start: 02/26/22 13:46 Freq: Status: Active Protocol: Document 03/19/22 13:47 [facility] (Rec: 03/19/22 14:26 [facility] [id number]) Out-Patient Physical Therapy Visit Information Visit Information Visit Type Treatment Note Visit Start Time 13:45 Visit Stop Time 14:30 Total Visit Minutes 45 Visit Number 3 PT-OP-B Current Condition Start: 02/26/22 13:46 Freq: Status: Active Protocol: Document 02/26/22 13:45 [facility] (Rec: 02/26/22 14:30 [facility] [id number]) Current Condition History of Current Condition Onset Date urinary stress incontinence that is chronic in nature Current Complaints urinary incontinence that happens continually thoughout the day History of Current Condition August 08 2021 pt had a hysterectomy for uterine prolaspe and sling reversal due to it being so tight that it was difficult to void. She has a follow up due to still not being able to make it to the bathroom. The pelvic pressure is better since surgery. SHe has had a rhizotomy since last time she was in PT. Her pain is 1/2 of what it used to be but she has more muscle spasms that cripple her. She notes at this time she is worse with her leakage. PT drinks 1/2 gallon of water per day. She is taking 10 mg oxybuterine and merametric. Pt reports a constant leakage and she notes she often is unable to make it to the bathroom. She does report strong urges throughout the day. Pt has leakage at night even though she is getting up 2-3 times per night . She voids every 2 hours throughout the day. pt uses 4 poise pads per day and a overnight pad. Only one of her kidneys is functioning correctly, the right kidney is only 30% Prior Treatments and Tests medial brance rhizotomy performed 11/20/21 for R L5-S1, The L5 nerve root sleeve is flattened in the left foramen, multilevel facte hypertrophy Treatment Goals Patient/Caregiver Goals to reduce urinary incontinence PT-OP-C Subjective Start: 02/26/22 13:46 Freq: Status: Active Protocol: Document 03/19/22 13:47 [facility] (Rec: 03/19/22 14:26 [facility] [id number]) OP-PT Subjective Patient Comments Patient Comments pt saw her MD this past week andhe wasnts her to come off the oxybutrin. She is working on her urge deference technique PT-OP-I Pelvic Floor Start: 02/26/22 13:46 Freq: Status: Active Protocol: Document 02/26/22 13:45 [facility] (Rec: 02/26/22 14:30 [facility] [id number]) Pelvic Floor Assessment Urine Pelvic Floor Surgery Yes Urinary Symptoms Urge Sensation Leakage Size Large Other Leakage Causes leakage happens despite activity and is occuring all day long Leaks Per Day leaking is constant Voiding Frequency every 2-3 hours but if she waits too long urgency will begin Nocturia 2-4 Pads Used In 24 Hours 5 Urine Pad Type Depends Pelvic Clock Pelvic Clock 12-3 Atrophy Pelvic Clock 3-6 Atrophy Pelvic Clock 6-9 Atrophy Pelvic Clock 9-12 Atrophy Contraction Ability Voluntary Contraction Weak Voluntary Relaxation Weak Manual Muscle Testing Left 3 Manual Muscle Testing Right 3 Manual Muscle Testing Anterior 3 Manual Muscle Testing Posterior 3 Muscle Endurance (Seconds) 3 PT-OP-Q Treatments Start: 02/26/22 13:46 Freq: Status: Active Protocol: Document 03/19/22 13:47 [facility] (Rec: 03/19/22 14:26 [facility] [id number]) Therapeutic Exercises Supine Exercises templates for eccentric control and coordination Comments reverse pelvic floor exercises quick flicks Reps/Minutes x 15 reps 2 sec on 2 sec off Comments 29.0 uv max resting tone Comments baseline pelvic floor long holds Reps/Minutes 5 second hold 10 sec rest Comments average 14.7 max 27.7 Self-Care/Home Management Treatment Education Other Education urge deference technique, bladder irritant review, pt notes she has stopped drinking mountain dew PT-OP-T Assessment and Plan Start: 02/26/22 13:46 Freq: Status: Active Protocol: Document 03/19/22 13:47 [facility] (Rec: 03/19/22 14:26 [facility] [id number]) Physical Therapy Assessment Goals 3 Impairment Decreased pelvic floor endurance and Nancy is limited to a few repetitions of pelvic floor muscle facilitation only due to back spasms Shelter Goal (LTG) Nancy is able to work up to 10 second hold time x 10 repetitions of pelvic floor contractions improving endurance and support for her bladder LTG Duration 12 weeks 2 Impairment urinary incontinence that occurs all day and Nancy goes through 5 poise pads per day Roving Hauler Goal (LTG) Nancy is down to 2 or less pads per day and notes a overall reduction in urinary stress incontinence LTG Duration 12 weeks 1 Impairment Decreased pelvic floor strength 3/5 MMT Shelter Goal (LTG) Nancy is able to increase her pelvic floor strength by 1 muscle grade for improved support of her bladder LTG Duration 12 weeks Assessment Summary Assessment Endurance is increasing and average on EMG biofeedback went up by 2 uv. Nancy is working on 10 sec holds at home and does 2-3 reps in a row. I Encouraged her to increase number of reps when she can. Physical Therapy Plan Frequency and Duration Frequency of Treatment 1x/Week Duration of treatment (weeks) 12 Plan of Care Start Date 02/26/22 Plan of Care End Date 05/28/22 Therapeutic Interventions Therapeutic Interventions Home Exercise Program,Manual Therapy,Neuromuscular Re- education,Patient/Caregiver Education,Self-Care/Home Management,Therapeutic Exercises Modalities Biofeedback,Electric Stimulation Next Visit Focus/Plan Next Note Type Treatment Note Next Visit Plan review urge deference technique, progress pelvic floor strengthening, EMG biofeedback for improved resting tone and endurance training of the pelvic floor
--- NOTE | 2022-04-09 14:30 | PT.OTN ---
Current Diagnoses Stress incontinence (female) (male) (04/09/22) Urge incontinence (04/09/22) Unspecified urinary incontinence (04/09/22) Physical Therapy Treatment Note PT-OP-A Visit Information Start: 02/26/22 13:46 Freq: Status: Active Protocol: Document 03/19/22 13:47 [facility] (Rec: 03/19/22 14:26 [facility] [id number]) Out-Patient Physical Therapy Visit Information Visit Information Visit Type Treatment Note Visit Start Time 13:45 Visit Stop Time 14:30 Total Visit Minutes 45 Visit Number 3 PT-OP-B Current Condition Start: 02/26/22 13:46 Freq: Status: Active Protocol: Document 02/26/22 13:45 [facility] (Rec: 02/26/22 14:30 [facility] [id number]) Current Condition History of Current Condition Onset Date urinary stress incontinence that is chronic in nature Current Complaints urinary incontinence that happens continually thoughout the day History of Current Condition August 08 2021 pt had a hysterectomy for uterine prolaspe and sling reversal due to it being so tight that it was difficult to void. She has a follow up due to still not being able to make it to the bathroom. The pelvic pressure is better since surgery. SHe has had a rhizotomy since last time she was in PT. Her pain is 1/2 of what it used to be but she has more muscle spasms that cripple her. She notes at this time she is worse with her leakage. PT drinks 1/2 gallon of water per day. She is taking 10 mg oxybuterine and merametric. Pt reports a constant leakage and she notes she often is unable to make it to the bathroom. She does report strong urges throughout the day. Pt has leakage at night even though she is getting up 2-3 times per night . She voids every 2 hours throughout the day. pt uses 4 poise pads per day and a overnight pad. Only one of her kidneys is functioning correctly, the right kidney is only 30% Prior Treatments and Tests medial brance rhizotomy performed 11/20/21 for R L5-S1, The L5 nerve root sleeve is flattened in the left foramen, multilevel facte hypertrophy Treatment Goals Patient/Caregiver Goals to reduce urinary incontinence PT-OP-C Subjective Start: 02/26/22 13:46 Freq: Status: Active Protocol: Document 03/19/22 13:47 [facility] (Rec: 03/19/22 14:26 [facility] [id number]) OP-PT Subjective Patient Comments Patient Comments pt saw her MD this past week andhe wasnts her to come off the oxybutrin. She is working on her urge deference technique PT-OP-I Pelvic Floor Start: 02/26/22 13:46 Freq: Status: Active Protocol: Document 02/26/22 13:45 [facility] (Rec: 02/26/22 14:30 [facility] [id number]) Pelvic Floor Assessment Urine Pelvic Floor Surgery Yes Urinary Symptoms Urge Sensation Leakage Size Large Other Leakage Causes leakage happens despite activity and is occuring all day long Leaks Per Day leaking is constant Voiding Frequency every 2-3 hours but if she waits too long urgency will begin Nocturia 2-4 Pads Used In 24 Hours 5 Urine Pad Type Depends Pelvic Clock Pelvic Clock 12-3 Atrophy Pelvic Clock 3-6 Atrophy Pelvic Clock 6-9 Atrophy Pelvic Clock 9-12 Atrophy Contraction Ability Voluntary Contraction Weak Voluntary Relaxation Weak Manual Muscle Testing Left 3 Manual Muscle Testing Right 3 Manual Muscle Testing Anterior 3 Manual Muscle Testing Posterior 3 Muscle Endurance (Seconds) 3 PT-OP-Q Treatments Start: 02/26/22 13:46 Freq: Status: Active Protocol: Document 03/19/22 13:47 [facility] (Rec: 03/19/22 14:26 [facility] [id number]) Therapeutic Exercises Supine Exercises templates for eccentric control and coordination Comments reverse pelvic floor exercises quick flicks Reps/Minutes x 15 reps 2 sec on 2 sec off Comments 29.0 uv max resting tone Comments baseline pelvic floor long holds Reps/Minutes 5 second hold 10 sec rest Comments average 14.7 max 27.7 Self-Care/Home Management Treatment Education Other Education urge deference technique, bladder irritant review, pt notes she has stopped drinking mountain dew PT-OP-T Assessment and Plan Start: 02/26/22 13:46 Freq: Status: Active Protocol: Document 03/19/22 13:47 [facility] (Rec: 03/19/22 14:26 [facility] [id number]) Physical Therapy Assessment Goals 3 Impairment Decreased pelvic floor endurance and Nancy is limited to a few repetitions of pelvic floor muscle facilitation only due to back spasms Long-Term Goal (LTG) Nancy is able to work up to 10 second hold time x 10 repetitions of pelvic floor contractions improving endurance and support for her bladder LTG Duration 12 weeks 2 Impairment urinary incontinence that occurs all day and Nancy goes through 5 poise pads per day Supply Chain Specialist Goal (LTG) Nancy is down to 2 or less pads per day and notes a overall reduction in urinary stress incontinence LTG Duration 12 weeks 1 Impairment Decreased pelvic floor strength 3/5 MMT Long-Term Goal (LTG) Nancy is able to increase her pelvic floor strength by 1 muscle grade for improved support of her bladder LTG Duration 12 weeks Assessment Summary Assessment Endurance is increasing and average on EMG biofeedback went up by 2 uv. Nancy is working on 10 sec holds at home and does 2-3 reps in a row. I Encouraged her to increase number of reps when she can. Physical Therapy Plan Frequency and Duration Frequency of Treatment 1x/Week Duration of treatment (weeks) 12 Plan of Care Start Date 02/26/22 Plan of Care End Date 05/28/22 Therapeutic Interventions Therapeutic Interventions Home Exercise Program,Manual Therapy,Neuromuscular Re- education,Patient/Caregiver Education,Self-Care/Home Management,Therapeutic Exercises Modalities Biofeedback,Electric Stimulation Next Visit Focus/Plan Next Note Type Treatment Note Next Visit Plan review urge deference technique, progress pelvic floor strengthening, EMG biofeedback for improved resting tone and endurance training of the pelvic floor
--- NOTE | 2022-04-23 14:43 | PT.OTN ---
Current Diagnoses Stress incontinence (female) (male) (04/23/22) Urge incontinence (04/23/22) Unspecified urinary incontinence (04/23/22) Physical Therapy Treatment Note PT-OP-A Visit Information Start: 02/26/22 13:46 Freq: Status: Active Protocol: Document 04/23/22 13:53 [facility] (Rec: 04/23/22 14:42 [facility] [id number]) Out-Patient Physical Therapy Visit Information Visit Information Visit Type Treatment Note Visit Start Time 13:50 Visit Stop Time 14:30 Total Visit Minutes 40 Visit Number 5 PT-OP-B Current Condition Start: 02/26/22 13:46 Freq: Status: Active Protocol: Document 02/26/22 13:45 [facility] (Rec: 02/26/22 14:30 [facility] [id number]) Current Condition History of Current Condition Onset Date urinary stress incontinence that is chronic in nature Current Complaints urinary incontinence that happens continually thoughout the day History of Current Condition August 08 2021 pt had a hysterectomy for uterine prolaspe and sling reversal due to it being so tight that it was difficult to void. She has a follow up due to still not being able to make it to the bathroom. The pelvic pressure is better since surgery. SHe has had a rhizotomy since last time she was in PT. Her pain is 1/2 of what it used to be but she has more muscle spasms that cripple her. She notes at this time she is worse with her leakage. PT drinks 1/2 gallon of water per day. She is taking 10 mg oxybuterine and merametric. Pt reports a constant leakage and she notes she often is unable to make it to the bathroom. She does report strong urges throughout the day. Pt has leakage at night even though she is getting up 2-3 times per night . She voids every 2 hours throughout the day. pt uses 4 poise pads per day and a overnight pad. Only one of her kidneys is functioning correctly, the right kidney is only 30% Prior Treatments and Tests medial brance rhizotomy performed 11/20/21 for R L5-S1, The L5 nerve root sleeve is flattened in the left foramen, multilevel facte hypertrophy Treatment Goals Patient/Caregiver Goals to reduce urinary incontinence PT-OP-C Subjective Start: 02/26/22 13:46 Freq: Status: Active Protocol: Document 04/23/22 13:53 [facility] (Rec: 04/23/22 14:42 [facility] [id number]) OP-PT Subjective Patient Comments Patient Comments pt is having increased pain in her back and she is wondering if it is weather related. She has been doing better holding her water and not experiencing as much leakage. PT-OP-I Pelvic Floor Start: 02/26/22 13:46 Freq: Status: Active Protocol: Document 02/26/22 13:45 [facility] (Rec: 02/26/22 14:30 [facility] [id number]) Pelvic Floor Assessment Urine Pelvic Floor Surgery Yes Urinary Symptoms Urge Sensation Leakage Size Large Other Leakage Causes leakage happens despite activity and is occuring all day long Leaks Per Day leaking is constant Voiding Frequency every 2-3 hours but if she waits too long urgency will begin Nocturia 2-4 Pads Used In 24 Hours 5 Urine Pad Type Depends Pelvic Clock Pelvic Clock 12-3 Atrophy Pelvic Clock 3-6 Atrophy Pelvic Clock 6-9 Atrophy Pelvic Clock 9-12 Atrophy Contraction Ability Voluntary Contraction Weak Voluntary Relaxation Weak Manual Muscle Testing Left 3 Manual Muscle Testing Right 3 Manual Muscle Testing Anterior 3 Manual Muscle Testing Posterior 3 Muscle Endurance (Seconds) 3 PT-OP-Q Treatments Start: 02/26/22 13:46 Freq: Status: Active Protocol: Document 04/23/22 13:53 [facility] (Rec: 04/23/22 14:42 [facility] [id number]) Therapeutic Exercises Supine Exercises ball squeeze with pelvic floor contraction Reps/Minutes x 15 reps roll outs with theraband Reps/Minutes 30 reps quick flicks Reps/Minutes 10 reps resting tone Comments able to keep resting tone at baseline pelvic floor long holds Reps/Minutes 10 sec on 10 sec off Comments pt able to complete all 10 reps Self-Care/Home Management Treatment Education Patient Education Home Exercise Program Other Education urge deference technique and bladder retraining PT-OP-T Assessment and Plan Start: 02/26/22 13:46 Freq: Status: Active Protocol: Document 04/23/22 13:53 [facility] (Rec: 04/23/22 14:42 [facility] [id number]) Physical Therapy Assessment Assessment Summary Assessment Nancy was able to complete all exercises however she was more tender in her low back today so I did not add in additional exercises. She is doing better overall and noticing more control over her bladder Physical Therapy Plan Frequency and Duration Frequency of Treatment 1x/Week Duration of treatment (weeks) 12 Plan of Care Start Date 02/26/22 Plan of Care End Date 05/28/22 Therapeutic Interventions Therapeutic Interventions Home Exercise Program,Manual Therapy,Neuromuscular Re- education,Patient/Caregiver Education,Self-Care/Home Management,Therapeutic Exercises Modalities Biofeedback,Electric Stimulation Next Visit Focus/Plan Next Note Type Treatment Note Next Visit Plan continue with pelvic floor muscle strengthening and begin adding in dynamic stabilization as pt is able to tolerate
--- NOTE | 2022-05-06 13:31 | PT.OTN ---
Current Diagnoses Stress incontinence (female) (male) (05/06/22) Urge incontinence (05/06/22) Unspecified urinary incontinence (05/06/22) Physical Therapy Treatment Note PT-OP-A Visit Information Start: 02/26/22 13:46 Freq: Status: Active Protocol: Document 05/06/22 12:45 [facility] (Rec: 05/06/22 13:31 [facility] [id number]) Out-Patient Physical Therapy Visit Information Visit Information Visit Type Treatment Note Visit Start Time 12:45 Visit Stop Time 13:25 Total Visit Minutes 40 Visit Number 6 PT-OP-B Current Condition Start: 02/26/22 13:46 Freq: Status: Active Protocol: Document 02/26/22 13:45 [facility] (Rec: 02/26/22 14:30 [facility] [id number]) Current Condition History of Current Condition Onset Date urinary stress incontinence that is chronic in nature Current Complaints urinary incontinence that happens continually thoughout the day History of Current Condition August 08 2021 pt had a hysterectomy for uterine prolaspe and sling reversal due to it being so tight that it was difficult to void. She has a follow up due to still not being able to make it to the bathroom. The pelvic pressure is better since surgery. SHe has had a rhizotomy since last time she was in PT. Her pain is 1/2 of what it used to be but she has more muscle spasms that cripple her. She notes at this time she is worse with her leakage. PT drinks 1/2 gallon of water per day. She is taking 10 mg oxybuterine and merametric. Pt reports a constant leakage and she notes she often is unable to make it to the bathroom. She does report strong urges throughout the day. Pt has leakage at night even though she is getting up 2-3 times per night . She voids every 2 hours throughout the day. pt uses 4 poise pads per day and a overnight pad. Only one of her kidneys is functioning correctly, the right kidney is only 30% Prior Treatments and Tests medial brance rhizotomy performed 11/20/21 for R L5-S1, The L5 nerve root sleeve is flattened in the left foramen, multilevel facte hypertrophy Treatment Goals Patient/Caregiver Goals to reduce urinary incontinence PT-OP-C Subjective Start: 02/26/22 13:46 Freq: Status: Active Protocol: Document 05/06/22 12:45 [facility] (Rec: 05/06/22 13:31 [facility] [id number]) OP-PT Subjective Patient Comments Patient Comments pt notes she was able to control a urge this past week with the bladder retraining technique. PT-OP-I Pelvic Floor Start: 02/26/22 13:46 Freq: Status: Active Protocol: Document 02/26/22 13:45 [facility] (Rec: 02/26/22 14:30 [facility] [id number]) Pelvic Floor Assessment Urine Pelvic Floor Surgery Yes Urinary Symptoms Urge Sensation Leakage Size Large Other Leakage Causes leakage happens despite activity and is occuring all day long Leaks Per Day leaking is constant Voiding Frequency every 2-3 hours but if she waits too long urgency will begin Nocturia 2-4 Pads Used In 24 Hours 5 Urine Pad Type Depends Pelvic Clock Pelvic Clock 12-3 Atrophy Pelvic Clock 3-6 Atrophy Pelvic Clock 6-9 Atrophy Pelvic Clock 9-12 Atrophy Contraction Ability Voluntary Contraction Weak Voluntary Relaxation Weak Manual Muscle Testing Left 3 Manual Muscle Testing Right 3 Manual Muscle Testing Anterior 3 Manual Muscle Testing Posterior 3 Muscle Endurance (Seconds) 3 PT-OP-Q Treatments Start: 02/26/22 13:46 Freq: Status: Active Protocol: Document 05/06/22 12:45 [facility] (Rec: 05/06/22 13:31 [facility] [id number]) Therapeutic Exercises Supine Exercises ball squeeze with pelvic floor contraction Reps/Minutes x 15 reps roll outs with theraband Reps/Minutes 10 reps templates for eccentric control and coordination Reps/Minutes x 5 minutes quick flicks Reps/Minutes 10 reps Comments x 15 no back spasms resting tone Comments 0.0 uv pelvic floor long holds Reps/Minutes 7.9 and max of 19.4 uv Comments able to complete all 10 reps PT-OP-T Assessment and Plan Start: 02/26/22 13:46 Freq: Status: Active Protocol: Document 05/06/22 12:45 [facility] (Rec: 05/06/22 13:31 [facility] [id number]) Physical Therapy Assessment Assessment Summary Assessment Nancy was able to compete all her exercises today with the additional of templates with the biofeedback for eccentric control of the pelvic floor. She experienced one episode of back spasm early on prior to the heat pack relaxing her back. Next visit start heat a few min prior to exercises as it really seems to relax her back. She has also b een doing the tilt table with PT for her back and this seems to be helpful at reducing back spasms. Physical Therapy Plan Frequency and Duration Frequency of Treatment 1x/Week Duration of treatment (weeks) 12 Plan of Care Start Date 02/26/22 Plan of Care End Date 05/28/22 Therapeutic Interventions Therapeutic Interventions Home Exercise Program,Manual Therapy,Neuromuscular Re- education,Patient/Caregiver Education,Self-Care/Home Management,Therapeutic Exercises Modalities Biofeedback,Electric Stimulation Next Visit Focus/Plan Next Note Type Treatment Note Next Visit Plan continue with pelvic floor muscle strengthening and begin adding in additional dynamic stabilization as pt is able to tolerate
--- NOTE | 2022-05-21 16:45 | PT.OTN ---
Current Diagnoses Stress incontinence (female) (male) (05/26/22) Urge incontinence (05/26/22) Unspecified urinary incontinence (05/26/22) Physical Therapy Treatment Note PT-OP-A Visit Information Start: 02/26/22 13:46 Freq: Status: Active Protocol: Document 05/21/22 14:52 [facility] (Rec: 05/21/22 15:16 [facility] [id number]) Out-Patient Physical Therapy Visit Information Visit Information Visit Type Treatment Note Visit Start Time 14:35 Visit Stop Time 15:15 Total Visit Minutes 40 Visit Number 7 PT-OP-B Current Condition Start: 02/26/22 13:46 Freq: Status: Active Protocol: Document 02/26/22 13:45 [facility] (Rec: 02/26/22 14:30 [facility] [id number]) Current Condition History of Current Condition Onset Date urinary stress incontinence that is chronic in nature Current Complaints urinary incontinence that happens continually thoughout the day History of Current Condition August 08 2021 pt had a hysterectomy for uterine prolaspe and sling reversal due to it being so tight that it was difficult to void. She has a follow up due to still not being able to make it to the bathroom. The pelvic pressure is better since surgery. SHe has had a rhizotomy since last time she was in PT. Her pain is 1/2 of what it used to be but she has more muscle spasms that cripple her. She notes at this time she is worse with her leakage. PT drinks 1/2 gallon of water per day. She is taking 10 mg oxybuterine and merametric. Pt reports a constant leakage and she notes she often is unable to make it to the bathroom. She does report strong urges throughout the day. Pt has leakage at night even though she is getting up 2-3 times per night . She voids every 2 hours throughout the day. pt uses 4 poise pads per day and a overnight pad. Only one of her kidneys is functioning correctly, the right kidney is only 30% Prior Treatments and Tests medial brance rhizotomy performed 11/20/21 for R L5-S1, The L5 nerve root sleeve is flattened in the left foramen, multilevel facte hypertrophy Treatment Goals Patient/Caregiver Goals to reduce urinary incontinence PT-OP-C Subjective Start: 02/26/22 13:46 Freq: Status: Active Protocol: Document 05/21/22 14:52 [facility] (Rec: 05/21/22 15:16 [facility] [id number]) OP-PT Subjective Patient Comments Patient Comments pt notes its been a rough couple of weeks as she has been sick. She notes she had leaks with coughing and didn't make it to the bathroom on time. PT-OP-I Pelvic Floor Start: 02/26/22 13:46 Freq: Status: Active Protocol: Document 02/26/22 13:45 [facility] (Rec: 02/26/22 14:30 [facility] [id number]) Pelvic Floor Assessment Urine Pelvic Floor Surgery Yes Urinary Symptoms Urge Sensation Leakage Size Large Other Leakage Causes leakage happens despite activity and is occuring all day long Leaks Per Day leaking is constant Voiding Frequency every 2-3 hours but if she waits too long urgency will begin Nocturia 2-4 Pads Used In 24 Hours 5 Urine Pad Type Depends Pelvic Clock Pelvic Clock 12-3 Atrophy Pelvic Clock 3-6 Atrophy Pelvic Clock 6-9 Atrophy Pelvic Clock 9-12 Atrophy Contraction Ability Voluntary Contraction Weak Voluntary Relaxation Weak Manual Muscle Testing Left 3 Manual Muscle Testing Right 3 Manual Muscle Testing Anterior 3 Manual Muscle Testing Posterior 3 Muscle Endurance (Seconds) 3 PT-OP-Q Treatments Start: 02/26/22 13:46 Freq: Status: Active Protocol: Document 05/21/22 14:52 [facility] (Rec: 05/21/22 15:16 [facility] [id number]) Therapeutic Exercises Supine Exercises roll outs with theraband Reps/Minutes 2x 10 reps quick flicks Comments x 15 reps with left sided back spasms pelvic floor long holds Reps/Minutes 15.9 and 29.1 PT-OP-T Assessment and Plan Start: 02/26/22 13:46 Freq: Status: Active Protocol: Document 05/21/22 16:22 [facility] (Rec: 05/26/22 16:30 [facility] [id number]) Physical Therapy Assessment Assessment Summary Assessment Nancy continues to do better with heat on her back prior to her exercises. She has improved her endurance of pelvic floor holds as well as pelvic floor strength Physical Therapy Plan Frequency and Duration Frequency of Treatment 1x/Week Duration of treatment (weeks) 12 Plan of Care Start Date 02/26/22 Plan of Care End Date 05/28/22 Next Visit Focus/Plan Next Note Type Treatment Note Next Visit Plan continue with pelvic floor muscle strengthening and begin adding in additional dynamic stabilization as pt is able to tolerate
--- NOTE | 2022-05-26 17:00 | PT.OTN ---
Current Diagnoses Stress incontinence (female) (male) (05/26/22) Urge incontinence (05/26/22) Unspecified urinary incontinence (05/26/22) Physical Therapy Treatment Note PT-OP-A Visit Information Start: 02/26/22 13:46 Freq: Status: Active Protocol: Document 05/26/22 16:31 [facility] (Rec: 05/26/22 16:58 [facility] [id number]) Out-Patient Physical Therapy Visit Information Visit Information Visit Type Progress Note Visit Start Time 16:00 Visit Stop Time 16:45 Total Visit Minutes 45 Visit Number 8 PT-OP-B Current Condition Start: 02/26/22 13:46 Freq: Status: Active Protocol: Document 02/26/22 13:45 [facility] (Rec: 02/26/22 14:30 [facility] [id number]) Current Condition History of Current Condition Onset Date urinary stress incontinence that is chronic in nature Current Complaints urinary incontinence that happens continually thoughout the day History of Current Condition August 08 2021 pt had a hysterectomy for uterine prolaspe and sling reversal due to it being so tight that it was difficult to void. She has a follow up due to still not being able to make it to the bathroom. The pelvic pressure is better since surgery. SHe has had a rhizotomy since last time she was in PT. Her pain is 1/2 of what it used to be but she has more muscle spasms that cripple her. She notes at this time she is worse with her leakage. PT drinks 1/2 gallon of water per day. She is taking 10 mg oxybuterine and merametric. Pt reports a constant leakage and she notes she often is unable to make it to the bathroom. She does report strong urges throughout the day. Pt has leakage at night even though she is getting up 2-3 times per night . She voids every 2 hours throughout the day. pt uses 4 poise pads per day and a overnight pad. Only one of her kidneys is functioning correctly, the right kidney is only 30% Prior Treatments and Tests medial brance rhizotomy performed 11/20/21 for R L5-S1, The L5 nerve root sleeve is flattened in the left foramen, multilevel facte hypertrophy Treatment Goals Patient/Caregiver Goals to reduce urinary incontinence PT-OP-C Subjective Start: 02/26/22 13:46 Freq: Status: Active Protocol: Document 05/26/22 16:31 [facility] (Rec: 05/26/22 16:58 [facility] [id number]) OP-PT Subjective Patient Comments Patient Comments Nancy reports 2-3 times this week she didn't make it to the bathroom. PT-OP-I Pelvic Floor Start: 02/26/22 13:46 Freq: Status: Active Protocol: Document 02/26/22 13:45 [facility] (Rec: 02/26/22 14:30 [facility] [id number]) Pelvic Floor Assessment Urine Pelvic Floor Surgery Yes Urinary Symptoms Urge Sensation Leakage Size Large Other Leakage Causes leakage happens despite activity and is occuring all day long Leaks Per Day leaking is constant Voiding Frequency every 2-3 hours but if she waits too long urgency will begin Nocturia 2-4 Pads Used In 24 Hours 5 Urine Pad Type Depends Pelvic Clock Pelvic Clock 12-3 Atrophy Pelvic Clock 3-6 Atrophy Pelvic Clock 6-9 Atrophy Pelvic Clock 9-12 Atrophy Contraction Ability Voluntary Contraction Weak Voluntary Relaxation Weak Manual Muscle Testing Left 3 Manual Muscle Testing Right 3 Manual Muscle Testing Anterior 3 Manual Muscle Testing Posterior 3 Muscle Endurance (Seconds) 3 PT-OP-Q Treatments Start: 02/26/22 13:46 Freq: Status: Active Protocol: Document 05/26/22 16:31 [facility] (Rec: 05/26/22 16:58 [facility] [id number]) Therapeutic Exercises Supine Exercises ball squeeze with pelvic floor contraction Reps/Minutes x 15 reps roll outs with theraband Reps/Minutes 2x 10 reps templates for eccentric control and coordination Reps/Minutes x 5 minutes quick flicks Comments 15 reps resting tone Comments 0.0 uv pelvic floor long holds Reps/Minutes 15.9 and 29.1 PT-OP-T Assessment and Plan Start: 02/26/22 13:46 Freq: Status: Active Protocol: Document 05/26/22 16:31 [facility] (Rec: 05/26/22 16:58 [facility] [id number]) Physical Therapy Assessment Assessment Summary Assessment Nancy's endurance for pelvic floor work continues to improve. With being sick and coughing she did experience some leakage this past week but overall she is showing progress and making improvements with her pelvic floor strength. Physical Therapy Plan Frequency and Duration Frequency of Treatment 1x/Week Duration of treatment (weeks) 6 Plan of Care Start Date 05/26/22 Plan of Care End Date 07/08/22 Therapeutic Interventions Therapeutic Interventions Home Exercise Program,Manual Therapy,Neuromuscular Re- education,Patient/Caregiver Education,Self-Care/Home Management,Therapeutic Exercises Modalities Biofeedback,Electric Stimulation Next Visit Focus/Plan Next Note Type Treatment Note Next Visit Plan continue with pelvic floor muscle strengthening and begin adding in additional dynamic stabilization as pt is able to tolerate
--- NOTE | 2022-05-26 17:03 | PT.OPPN ---
Current Diagnoses Stress incontinence (female) (male) (05/26/22) Urge incontinence (05/26/22) Unspecified urinary incontinence (05/26/22) Physical Therapy Progress Note PT-OP-A Visit Information Start: 02/26/22 13:46 Freq: Status: Active Protocol: Document 05/26/22 16:31 [facility] (Rec: 05/26/22 16:58 [facility] [id number]) Out-Patient Physical Therapy Visit Information Visit Information Visit Type Progress Note Visit Start Time 16:00 Visit Stop Time 16:45 Total Visit Minutes 45 Visit Number 8 PT-OP-B Current Condition Start: 02/26/22 13:46 Freq: Status: Active Protocol: Document 02/26/22 13:45 [facility] (Rec: 02/26/22 14:30 [facility] [id number]) Current Condition History of Current Condition Onset Date urinary stress incontinence that is chronic in nature Current Complaints urinary incontinence that happens continually thoughout the day History of Current Condition August 08 2021 pt had a hysterectomy for uterine prolaspe and sling reversal due to it being so tight that it was difficult to void. She has a follow up due to still not being able to make it to the bathroom. The pelvic pressure is better since surgery. SHe has had a rhizotomy since last time she was in PT. Her pain is 1/2 of what it used to be but she has more muscle spasms that cripple her. She notes at this time she is worse with her leakage. PT drinks 1/2 gallon of water per day. She is taking 10 mg oxybuterine and merametric. Pt reports a constant leakage and she notes she often is unable to make it to the bathroom. She does report strong urges throughout the day. Pt has leakage at night even though she is getting up 2-3 times per night . She voids every 2 hours throughout the day. pt uses 4 poise pads per day and a overnight pad. Only one of her kidneys is functioning correctly, the right kidney is only 30% Prior Treatments and Tests medial brance rhizotomy performed 11/20/21 for R L5-S1, The L5 nerve root sleeve is flattened in the left foramen, multilevel facte hypertrophy Treatment Goals Patient/Caregiver Goals to reduce urinary incontinence PT-OP-C Subjective Start: 02/26/22 13:46 Freq: Status: Active Protocol: Document 05/26/22 16:31 [facility] (Rec: 05/26/22 16:58 [facility] [id number]) OP-PT Subjective Patient Comments Patient Comments Nancy reports 2-3 times this week she didn't make it to the bathroom. PT-OP-I Pelvic Floor Start: 02/26/22 13:46 Freq: Status: Active Protocol: Document 02/26/22 13:45 [facility] (Rec: 02/26/22 14:30 [facility] [id number]) Pelvic Floor Assessment Urine Pelvic Floor Surgery Yes Urinary Symptoms Urge Sensation Leakage Size Large Other Leakage Causes leakage happens despite activity and is occuring all day long Leaks Per Day leaking is constant Voiding Frequency every 2-3 hours but if she waits too long urgency will begin Nocturia 2-4 Pads Used In 24 Hours 5 Urine Pad Type Depends Pelvic Clock Pelvic Clock 12-3 Atrophy Pelvic Clock 3-6 Atrophy Pelvic Clock 6-9 Atrophy Pelvic Clock 9-12 Atrophy Contraction Ability Voluntary Contraction Weak Voluntary Relaxation Weak Manual Muscle Testing Left 3 Manual Muscle Testing Right 3 Manual Muscle Testing Anterior 3 Manual Muscle Testing Posterior 3 Muscle Endurance (Seconds) 3 PT-OP-T Assessment and Plan Start: 02/26/22 13:46 Freq: Status: Active Protocol: Document 05/26/22 16:31 [facility] (Rec: 05/26/22 16:58 [facility] [id number]) Physical Therapy Assessment Goals 3 Impairment Decreased pelvic floor endurance and Nancy is limited to a few repetitions of pelvic floor muscle facilitation only due to back spasms Group Home Goal (LTG) Nancy is able to work up to 10 second hold time x 10 repetitions of pelvic floor contractions improving endurance and support for her bladder GOAL MET LTG Duration 12 weeks 2 Impairment urinary incontinence that occurs all day and Nancy goes through 5 poise pads per day Group Home Goal (LTG) Nancy is down to 2 or less pads per day and notes a overall reduction in urinary stress incontinence excellent progress LTG Duration 12 weeks 1 Impairment Decreased pelvic floor strength 3/5 MMT Junior Systems Engineer Goal (LTG) Nancy is able to increase her pelvic floor strength by 1 muscle grade for improved support of her bladder excellent progress LTG Duration 12 weeks Assessment Summary Assessment Nancy's endurance for pelvic floor work continues to improve. With being sick and coughing she did experience some leakage this past week but overall she is showing progress and making improvements with her pelvic floor strength. Physical Therapy Plan Frequency and Duration Frequency of Treatment 1x/Week Duration of treatment (weeks) 6 Plan of Care Start Date 05/26/22 Plan of Care End Date 07/08/22 Therapeutic Interventions Therapeutic Interventions Home Exercise Program,Manual Therapy,Neuromuscular Re- education,Patient/Caregiver Education,Self-Care/Home Management,Therapeutic Exercises Modalities Biofeedback,Electric Stimulation Next Visit Focus/Plan Next Note Type Treatment Note Next Visit Plan continue with pelvic floor muscle strengthening and begin adding in additional dynamic stabilization as pt is able to tolerate
--- NOTE | 2022-05-26 17:04 | PT.OPPOC ---
Physical, Occupational & Speech Therapy At [facility] Current Diagnoses Stress incontinence (female) (male) (05/26/22) Urge incontinence (05/26/22) Unspecified urinary incontinence (05/26/22) Visit Care Team Role Provider Type Andrei Shepard MD Primary Care Provider Physician Specialty: Family Practice Address: [facility], [address] Email: [email or web address] Mega Peguero MD Attending Provider Physician Referring Provider Specialty: Orthopedic Surgery Address: [address] [place], [address] Email: Plan Of Care PT-OP-T Assessment and Plan Start: 02/26/22 13:46 Freq: Status: Active Protocol: Document 05/26/22 16:31 [facility] (Rec: 05/26/22 16:58 [facility] [id number]) Physical Therapy Assessment Goals 3 Impairment Decreased pelvic floor endurance and Nancy is limited to a few repetitions of pelvic floor muscle facilitation only due to back spasms Senior Dot Net Developer Goal (LTG) Nancy is able to work up to 10 second hold time x 10 repetitions of pelvic floor contractions improving endurance and support for her bladder GOAL MET LTG Duration 12 weeks 2 Impairment urinary incontinence that occurs all day and Nancy goes through 5 poise pads per day Senior Dot Net Developer Goal (LTG) Nancy is down to 2 or less pads per day and notes a overall reduction in urinary stress incontinence excellent progress LTG Duration 12 weeks 1 Impairment Decreased pelvic floor strength 3/5 MMT Mcc Goal (LTG) Nancy is able to increase her pelvic floor strength by 1 muscle grade for improved support of her bladder excellent progress LTG Duration 12 weeks Assessment Summary Assessment Nancy's endurance for pelvic floor work continues to improve. With being sick and coughing she did experience some leakage this past week but overall she is showing progress and making improvements with her pelvic floor strength. Physical Therapy Plan Frequency and Duration Frequency of Treatment 1x/Week Duration of treatment (weeks) 6 Plan of Care Start Date 05/26/22 Plan of Care End Date 07/08/22 Therapeutic Interventions Therapeutic Interventions Home Exercise Program,Manual Therapy,Neuromuscular Re- education,Patient/Caregiver Education,Self-Care/Home Management,Therapeutic Exercises Modalities Biofeedback,Electric Stimulation Next Visit Focus/Plan Next Note Type Treatment Note Next Visit Plan continue with pelvic floor muscle strengthening and begin adding in additional dynamic stabilization as pt is able to tolerate Plan of Care Dates Plan of Care Start Date 05/26/22 Plan of Care End Date 07/08/22 Electronically Signed by: Audrey Chapin, PT 05/26/22 8206 If you are in agreement with this Plan of Care, please return a signed and dated copy. I have reviewed this Plan of Care and certify that the skilled therapy services above are required to meet the patient?s needs. Physician Signature Date Printed Name and Credentials Clinical Instructor Signature Printed Name and Credentials
--- NOTE | 2022-06-18 14:34 | PT.OTN ---
Current Diagnoses Stress incontinence (female) (male) (06/18/22) Urge incontinence (06/18/22) Unspecified urinary incontinence (06/18/22) Physical Therapy Treatment Note PT-OP-A Visit Information Start: 02/26/22 13:46 Freq: Status: Active Protocol: Document 06/18/22 13:47 [facility] (Rec: 06/18/22 14:34 [facility] [id number]) Out-Patient Physical Therapy Visit Information Visit Information Visit Type Treatment Note Visit Start Time 13:45 Visit Stop Time 14:30 Total Visit Minutes 45 Visit Number 9 PT-OP-B Current Condition Start: 02/26/22 13:46 Freq: Status: Active Protocol: Document 02/26/22 13:45 [facility] (Rec: 02/26/22 14:30 [facility] [id number]) Current Condition History of Current Condition Onset Date urinary stress incontinence that is chronic in nature Current Complaints urinary incontinence that happens continually thoughout the day History of Current Condition August 08 2021 pt had a hysterectomy for uterine prolaspe and sling reversal due to it being so tight that it was difficult to void. She has a follow up due to still not being able to make it to the bathroom. The pelvic pressure is better since surgery. SHe has had a rhizotomy since last time she was in PT. Her pain is 1/2 of what it used to be but she has more muscle spasms that cripple her. She notes at this time she is worse with her leakage. PT drinks 1/2 gallon of water per day. She is taking 10 mg oxybuterine and merametric. Pt reports a constant leakage and she notes she often is unable to make it to the bathroom. She does report strong urges throughout the day. Pt has leakage at night even though she is getting up 2-3 times per night . She voids every 2 hours throughout the day. pt uses 4 poise pads per day and a overnight pad. Only one of her kidneys is functioning correctly, the right kidney is only 30% Prior Treatments and Tests medial brance rhizotomy performed 11/20/21 for R L5-S1, The L5 nerve root sleeve is flattened in the left foramen, multilevel facte hypertrophy Treatment Goals Patient/Caregiver Goals to reduce urinary incontinence PT-OP-C Subjective Start: 02/26/22 13:46 Freq: Status: Active Protocol: Document 06/18/22 13:47 [facility] (Rec: 06/18/22 14:34 [facility] [id number]) OP-PT Subjective Patient Comments Patient Comments pt notes when she bends from her waist she leaks urine, overall she feels that with the urgency things are improved, She is still on the medication but was able to dose. She did take a fall when it was snowing out and had a headache for a few days Patient Reported Progress Improving PT-OP-I Pelvic Floor Start: 02/26/22 13:46 Freq: Status: Active Protocol: Document 02/26/22 13:45 [facility] (Rec: 02/26/22 14:30 [facility] [id number]) Pelvic Floor Assessment Urine Pelvic Floor Surgery Yes Urinary Symptoms Urge Sensation Leakage Size Large Other Leakage Causes leakage happens despite activity and is occuring all day long Leaks Per Day leaking is constant Voiding Frequency every 2-3 hours but if she waits too long urgency will begin Nocturia 2-4 Pads Used In 24 Hours 5 Urine Pad Type Depends Pelvic Clock Pelvic Clock 12-3 Atrophy Pelvic Clock 3-6 Atrophy Pelvic Clock 6-9 Atrophy Pelvic Clock 9-12 Atrophy Contraction Ability Voluntary Contraction Weak Voluntary Relaxation Weak Manual Muscle Testing Left 3 Manual Muscle Testing Right 3 Manual Muscle Testing Anterior 3 Manual Muscle Testing Posterior 3 Muscle Endurance (Seconds) 3 PT-OP-Q Treatments Start: 02/26/22 13:46 Freq: Status: Active Protocol: Document 06/18/22 13:47 [facility] (Rec: 06/18/22 14:34 [facility] [id number]) Therapeutic Exercises Supine Exercises resting tone Comments 0.0 uv pelvic floor long holds Reps/Minutes 9.8 and 20.2 max Self-Care/Home Management Treatment Education Patient Education Home Exercise Program Other Education HEP reviewed PT-OP-T Assessment and Plan Start: 02/26/22 13:46 Freq: Status: Active Protocol: Document 06/18/22 13:47 [facility] (Rec: 06/18/22 14:34 [facility] [id number]) Physical Therapy Assessment Assessment Summary Assessment pt has not been able to get in her full 12 visits and this was her last visit scheduled today prior to her insurance authorization ending on . Nancy is on our cancel list to call if we have a opening for a additional visit . Overal she does feel improvement. She still experiences leakage but symptoms are better overall Physical Therapy Plan Frequency and Duration Frequency of Treatment 1x/Week Duration of treatment (weeks) 6 Plan of Care Start Date 05/26/22 Plan of Care End Date 07/08/22 Next Visit Focus/Plan Next Note Type Treatment Note Next Visit Plan continue with pelvic floor muscle strengthening and begin adding in additional dynamic stabilization as pt is able to tolerate
== END 2022-07-20 16:44 | disposition home or self-care (01) ==
LOC: PHYS 13:45
PROVIDERS: PCP Family Medicine; Referring Provider Orthopaedic Surgery; Visit Provider Orthopaedic Surgery
DX: N39.3 Stress incontinence (female) (male) (principal); N39.41 Urge incontinence
CPT/HCPCS: 97110; 97112; 97161; 97535

== ENCOUNTER → 2022-06-25 14:35 | Outpatient (CLI) | payer OTHER, MEDICAID, SELFPAY ==
--- NOTE | 2022-06-25 14:39 | DI.RAD.S_ITS ---
PROCEDURE: XR KNEE LT 3V INDICATIONS: LEFT KNEE PAIN TECHNIQUE: 3 views of the knee were acquired. COMPARISON: None. FINDINGS: Bones: No fractures or dislocations. There are small intercondylar osteophytes. No suspicious bony lesions. Soft tissues: No joint effusion. No suspicious soft tissue calcifications. IMPRESSION: Mild degenerative change. No acute radiographic findings. Dictated by: Nola Longoria M.D. on 06/25/2022 at 16:43 Approved by: Nola Longoria M.D. on 06/25/2022 at 16:44
== END ==
PROVIDERS: PCP Family Medicine; Referring Provider Family Medicine; Visit Provider Family Medicine
DX: M25.562 Pain in left knee (principal)
CPT/HCPCS: 73562

== ENCOUNTER → 2022-07-02 09:44 | Outpatient (CLI) | payer OTHER, MEDICAID, SELFPAY ==
[2022-07-02 12:43] LABS: Cholesterol 170 mg/dL (140-199); HDL Cholesterol 40 mg/dL (40-60); LDL Cholesterol Calculated 100 mg/dL (<100); Triglycerides 152 mg/dL (35-150)
== END ==
PROVIDERS: PCP Family Medicine; Referring Provider Internal Medicine Cardiovascular Disease; Visit Provider Internal Medicine Cardiovascular Disease
DX: E78.5 Hyperlipidemia, unspecified (principal)
CPT/HCPCS: 36415; 80061

== ENCOUNTER → 2022-08-07 13:21 | Outpatient (CLI) | payer OTHER, MEDICAID, SELFPAY ==
--- NOTE | 2022-08-07 13:28 | DI.RAD.S_ITS ---
PROCEDURE: XR HIP W PEL IF DONE KAI MIN 4V INDICATIONS: Right hip pain and weakness TECHNIQUE: AP pelvis with lateral view(s) of the bilateral hip(s). COMPARISON: [facility], , XR HIP W PEL IF DONE RT 2V, 01/13/2021, 16:43. FINDINGS: Bones: No fractures or dislocations. Minor symmetric degenerative joint space loss in the femoroacetabular joints without significant progression compared to the prior study. Pelvic ring appears intact. Degenerative disc disease L5-S1. No suspicious bony lesions. Soft tissues: The visualized bowel gas pattern is normal. No suspicious soft tissue calcifications. IMPRESSION: Minor, symmetric degenerative femoroacetabular joint space loss. Dictated by: Sowmya Aguilar M.D. on 08/07/2022 at 16:04 Approved by: Sowmya Aguilar M.D. on 08/07/2022 at 16:05
[2022-08-07 15:07] LABS: Hematocrit 43.2 % (36-46); Hemoglobin 14.2 g/dL (12.0-16.0); Mean Corpuscular HGB Conc 32.9 % (30-36); Mean Corpuscular Hemoglobin 29.6 PG (26-34); Mean Corpuscular Volume 90.1 fL (80-100); Platelet Count 248 X10^3/uL (150-400); Red Cell Distribution Width 13.9 % (11.6-14.8); White Blood Cell Count 6.4 X10^3/uL (4.5-11.0)
[2022-08-07 15:21] LABS: Alanine Aminotransferase 17 IU/L (<35); Albumin 4.3 g/dL (3.5-5.0); Albumin Globulin Ratio 1.5 (1.0-2.8); Alkaline Phosphatase 64 U/L (38-126); Aspartate Aminotransferase 21 IU/L (14-36); BUN Creatinine Ratio 23.5 (6-22); Bilirubin Total 0.7 mg/dL (0.2-1.3); Blood Urea Nitrogen 23 mg/dL (7-17); Calcium 9.1 mg/dL (8.4-10.2); Carbon Dioxide 27 mmol/L (22-32); Chloride 107 mmol/L (98-107); Cholesterol 190 mg/dL (140-199); Estimated Glomerular Filt Rate > 60 mL/min (>60); Globulin 2.9 g/dL (1.7-4.1); Glucose 78 mg/dL (70-100); HDL Cholesterol 47 mg/dL (40-60); HEMOLYSIS < 15 (0-50); LDL Cholesterol Calculated 111 mg/dL (<100); Potassium 3.6 mmol/L (3.4-5.1); Sodium 141 mmol/L (137-145); Total Protein 7.2 g/dL (6.3-8.2); Triglycerides 158 mg/dL (35-150)
[2022-08-07 15:48] LABS: TSH w/ Reflex to FT4 0.19 uIU/mL (0.47-4.68)
[2022-08-07 16:04] LABS: Vitamin B12 264 pg/mL (239-931)
[2022-08-07 16:23] LABS: Free T4, Direct Thyroxine 1.93 ng/dL (0.78-2.19)
== END ==
PROVIDERS: PCP Family Medicine; Referring Provider Family Medicine; Visit Provider Family Medicine
DX: M16.11 Unilateral primary osteoarthritis, right hip (principal); M51.37 Other intervertebral disc degeneration, lumbosacral region; E53.8 Deficiency of other specified B group vitamins; I10 Essential (primary) hypertension; E78.5 Hyperlipidemia, unspecified; E03.9 Hypothyroidism, unspecified
CPT/HCPCS: 36415; 73522; 80053; 80061; 82607; 84439; 84443; 85027

== ENCOUNTER → 2023-02-08 09:35 | Outpatient (CLI) | payer OTHER, MEDICAID, SELFPAY ==
[2023-02-08 11:45] LABS: Cholesterol 291 mg/dL (140-199); HDL Cholesterol 44 mg/dL (40-60); LDL Cholesterol Calculated 211 mg/dL (<100); Triglycerides 182 mg/dL (35-150)
== END ==
PROVIDERS: Family Provider Family Medicine; PCP Family Medicine; Referring Provider Internal Medicine Cardiovascular Disease; Visit Provider Internal Medicine Cardiovascular Disease
DX: E78.5 Hyperlipidemia, unspecified (principal)
CPT/HCPCS: 36415; 80061

== ENCOUNTER → 2023-07-10 16:10 | Outpatient (ROUT) | payer OTHER, MEDICAID, SELFPAY ==
[2023-07-10 16:23] LABS: Appearance Urine UA CLEAR; Bilirubin Urine UA NEGATIVE (NEGATIVE); Color Urine UA YELLOW; Glucose Urine UA NEGATIVE (Negative); Ketones Urine UA NEGATIVE (NEGATIVE); Leukocyte Esterase Urine UA NEGATIVE (NEGATIVE); Nitrite Urine UA NEGATIVE (Negative); Occult Blood Urine UA 2+ (Negative); Protein Urine UA NEGATIVE (Negative); Urobilinogen Urine UA 0.2 E.U./dL (0.2)
[2023-07-10 16:24] LABS: pH Urine UA 6.5 (4.5-8.0)
[2023-07-10 16:40] LABS: Bacteria Urine None Seen; Culture Indicated Urine Cult Not Indicated; RBC Urine 1-5/HPF (0-5/HPF); Squamous Epithelial Cell Urine None Seen (0-5/HPF); Urine Volume 10mL (spun); WBC Urine 1-5/HPF (0-5/HPF)
== END ==
PROVIDERS: Family Provider Family Medicine; PCP Family Medicine; Visit Provider Physician Assistant
DX: N39.0 Urinary tract infection, site not specified (principal); R30.0 Dysuria; R35.0 Frequency of micturition
CPT/HCPCS: 81001; 81002

== ENCOUNTER → 2023-08-17 11:56 | Outpatient (CLI) | payer OTHER, MEDICAID, SELFPAY ==
--- NOTE | 2023-08-17 11:59 | DI.US.S_ITS ---
ULTRASOUND OF RIGHT BREAST: 08/17/2023 CLINICAL: Palpable right breast lump and focal pain. Comparison is made to exams dated: 08/17/2023 mammogram - [facility], 10/27/2021 ultrasound, 10/27/2021 mammogram - [facility], 08/01/2020 mammogram, 08/12/2018 mammogram, and 12/30/2015 mammogram - [facility]. Real-time ultrasound of the right breast was performed. Melo scale images of the real-time examination were reviewed. No sonographic abnormality is seen in the area of clinical concern in the right breast at 9 and 10 o'clock, 10 cm from the nipple. IMPRESSION: NEGATIVE No sonographic abnormality in the area of clinical concern. No mammographic or sonographic evidence of malignancy. A 1 year screening mammogram is recommended. Clinical follow-up is also recommended, and further management of palpable abnormalities or other focal signs or symptoms should be based on the results of clinical evaluation. If palpable abnormality or other concerning symptom persists or progresses, further clinical evaluation should be considered. Findings and recommendations were conveyed to the patient during today's evaluation. This exam was interpreted at Station ID: [id number]. Electronically Signed By: Ann Balbuena M.D., PH.D eb/:08/17/2023 13:21:56 letter sent: Clinical Evaluation Ultrasound BI-RADS: 1 Negative
--- NOTE | 2023-08-17 11:59 | DI.MG.S_ITS ---
BILATERAL DIGITAL DIAGNOSTIC MAMMOGRAM 3D/2D: 08/17/2023 CLINICAL: Palpable right breast lump. Comparison is made to exams dated: 10/27/2021 ultrasound, 10/27/2021 mammogram - [facility], 08/01/2020 mammogram, and 08/12/2018 mammogram - [facility]. Both breasts are heterogeneously dense, which may obscure small masses (category c / 51-75% glandular tissue). A BB marker was placed in the area of clinical concern in the right breast, and no mammographic abnormality is identified. No significant masses, calcifications, or other findings are seen in either breast. IMPRESSION: INCOMPLETE: NEEDS ADDITIONAL IMAGING EVALUATION No mammographic evidence of malignancy. Recommend further evaluation with targeted breast ultrasound, which will immediately follow this exam. Based on the Tyrer Cuzick model (a risk assessment model) the patient's lifetime risk is 19.6% and her 10 year risk is 7.5%. According to the ACR, ACS, and NCCN guidelines, an annual breast MRI exam along with mammogram is recommended if the patient's lifetime risk is 20% or greater. This exam was interpreted at Station ID: [id number]. NOTE: For mammograms, a report in lay terms will be sent to the patient. Approximately 15% of breast malignancies will not be visualized mammographically. In the management of a palpable breast mass, a negative mammogram must not discourage biopsy of a clinically suspicious lesion. Electronically Signed By: Ann Balbuena M.D., PH.D eb/:08/17/2023 13:03:01 ACR BI-RADS Category 0: Incomplete 3340F
== END ==
PROVIDERS: Family Provider Family Medicine; PCP Family Medicine; Referring Provider Family Medicine; Visit Provider Family Medicine
DX: R92.333 Mammographic heterogeneous density, bilateral breasts (principal); R92.2 Inconclusive mammogram; N63.10 Unspecified lump in the right breast, unspecified quadrant
CPT/HCPCS: 76642; 77066; G0279

== ENCOUNTER → 2023-10-05 11:05 | Outpatient (CLI) | payer OTHER, MEDICAID, SELFPAY ==
--- NOTE | 2023-10-05 11:07 | DI.RAD.S_ITS ---
PROCEDURE: XR FOOT RT MIN 3V INDICATIONS: FALL TECHNIQUE: 3 views of the foot were acquired. COMPARISON: [facility], CR, XR FOOT RT MIN 3V, 01/03/2020, 11:12. [facility], CR, XR FOOT LT MIN 3V, 11/21/2019, 12:49. FINDINGS: Bones: No displaced fractures. Marginal erosion of the 1st MTP joint. Soft tissues: Moderate tibiotalar joint effusion. Achilles tendon appears normal. IMPRESSION: No definite acute radiographic abnormality. If pain persists with conservative management, consider repeat radiographs in 10-14 days or cross sectional imaging such as CT or MRI for further assessment. Marginal erosion of the 1st MTP joint, which may indicate gout. Moderate tibiotalar joint effusion. Dictated by: Aleksandar Quezada M.D. on 10/05/2023 at 15:44 Approved by: Aleksandar Quezada M.D. on 10/05/2023 at 15:49
== END ==
PROVIDERS: Family Provider Family Medicine; PCP Family Medicine; Referring Provider Registered Nurse; Visit Provider Registered Nurse
DX: S99.921A Unspecified injury of right foot, initial encounter (principal); M25.474 Effusion, right foot; W19.XXXA Unspecified fall, initial encounter
CPT/HCPCS: 73630

== ENCOUNTER → 2023-10-07 14:47 | Outpatient (CLI) | payer OTHER, MEDICAID, SELFPAY ==
--- NOTE | 2023-10-07 14:49 | DI.US.S_ITS ---
PROCEDURE: US CAROTID DOPPLER BI INDICATIONS: TIA TECHNIQUE: Color and pulse Doppler interrogation was performed of both carotid systems, with image documentation and velocity measurements. COMPARISON: None. FINDINGS: Stenosis calculations are based on SRU (Society of Radi[employer] in Ultras[employer]) criteria. Right side: Brachial blood pressure: 135/78 mm Hg. Common carotid artery peak systolic velocity: 58 cm/sec. Internal carotid artery peak systolic velocity: 74 cm/sec. Internal carotid artery end diastolic velocity: 36 cm/sec. External carotid artery peak systolic velocity: 120 cm/sec. ICA/CCA peak systolic ratio: 1.3. Melo scale imaging description: No atheromatous plaque Percent internal carotid artery stenosis: No stenosis. Vertebral artery: Flow direction is antegrade. Left side: Brachial blood pressure: 144/92 mm Hg. Common carotid artery peak systolic velocity: 91 cm/sec. Internal carotid artery peak systolic velocity: 80 cm/sec. Internal carotid artery end diastolic velocity: 31 cm/sec. External carotid artery peak systolic velocity: 127 cm/sec. ICA/CCA peak systolic ratio: 0.9 . Melo scale imaging description: No atheromatous plaque Percent internal carotid artery stenosis: No stenosis. Vertebral artery: Flow direction is antegrade. IMPRESSION: No sonographic evidence for stenosis of the bilateral internal carotid arteries. Dictated by: Nola Longoria M.D. on 10/07/2023 at 17:05 Approved by: Nola Longoria M.D. on 10/07/2023 at 17:07
== END ==
PROVIDERS: Family Provider Family Medicine; PCP Family Medicine; Referring Provider Family Medicine; Visit Provider Family Medicine
DX: G45.9 Transient cerebral ischemic attack, unspecified (principal)
CPT/HCPCS: 93880

== ENCOUNTER → 2024-01-05 07:44 | Outpatient (CLI) | payer OTHER, MEDICAID, SELFPAY ==
[2024-01-05 09:07] LABS: Add Manual Diff / Slide Review NO; Basophils Absolute Auto 0 /uL (0-100); Basophils Percent Auto 0.7 % (0-2); Eosinophils Absolute Auto 300 /uL (0-450); Eosinophils Percent Auto 4.4 % (2-4); Hematocrit 43.6 % (36-46); Hemoglobin 14.6 g/dL (12.0-16.0); Lymphocytes Absolute Auto 2000 /uL (1100-4500); Lymphocytes Percent Auto 28.4 % (25-40); Mean Corpuscular HGB Conc 33.3 % (30-36); Mean Corpuscular Hemoglobin 29.9 PG (26-34); Mean Corpuscular Volume 89.6 fL (80-100); Monocytes Absolute Auto 600 /uL (0-900); Monocytes Percent Auto 8.7 % (3-14); Neutrophils Absolute Auto 4000 /uL (1500-7000); Neutrophils Percent Auto 57.8 % (50-75); Platelet Count 246 X10^3/uL (150-400); Red Blood Cell Count 4.87 X10^6/uL (4.0-5.2); Red Cell Distribution Width 13.8 % (11.6-14.8); White Blood Cell Count 6.9 X10^3/uL (4.5-11.0)
[2024-01-05 09:15] LABS: Hemoglobin A1C% w Est Avg Glu 5.6 % (4.0-6.0)
[2024-01-05 09:47] LABS: Alanine Aminotransferase 16 IU/L (<35); Albumin 4.5 g/dL (3.5-5.0); Alkaline Phosphatase 65 U/L (38-126); Aspartate Aminotransferase 23 IU/L (14-36); BUN Creatinine Ratio 21.8 (6-22); Bilirubin Total 0.6 mg/dL (0.2-1.3); Blood Urea Nitrogen 22 mg/dL (7-17); Calcium 9.7 mg/dL (8.4-10.2); Carbon Dioxide 26 mmol/L (22-32); Chloride 108 mmol/L (98-107); Cholesterol 213 mg/dL (140-199); Estimated Glomerular Filt Rate > 60 mL/min (>60); Globulin 2.3 g/dL (1.7-4.1); Glucose 100 mg/dL (70-100); HDL Cholesterol 52 mg/dL (40-60); HEMOLYSIS < 15 (0-50); LDL Cholesterol Calculated 136 mg/dL (<100); Potassium 4.2 mmol/L (3.4-5.1); Sodium 142 mmol/L (137-145); Total Protein 6.8 g/dL (6.3-8.2); Triglycerides 123 mg/dL (35-150)
[2024-01-05 09:51] LABS: High Sensitivity CRP - Cardiac 1.2 mg/L (1.0-3.0)
[2024-01-05 10:04] LABS: Vitamin D 25 Hydroxy (D3) 51.5 ng/mL (30.0-100.0)
[2024-01-05 10:22] LABS: TSH w/ Reflex to FT4 0.97 uIU/mL (0.47-4.68)
[2024-01-05 10:42] LABS: Vitamin B12 336 pg/mL (239-931)
== END ==
LOC: LAB 07:46
PROVIDERS: Family Provider Family Medicine; PCP Family Medicine; Referring Provider Family Medicine; Visit Provider Family Medicine
DX: E78.5 Hyperlipidemia, unspecified (principal); E05.90 Thyrotoxicosis, unspecified without thyrotoxic crisis or storm; N19 Unspecified kidney failure; E56.9 Vitamin deficiency, unspecified; N95.1 Menopausal and female climacteric states
CPT/HCPCS: 36415; 80053; 80061; 82306; 82607; 82627; 83036; 83525; 84144; 84443; 84999; 85025; 86140

== ENCOUNTER → 2024-08-08 08:28 | Outpatient (CLI) | payer OTHER, SELFPAY ==
[2024-08-08 10:23] LABS: Alanine Aminotransferase 21 IU/L (<35); Albumin 4.2 g/dL (3.5-5.0); Albumin Globulin Ratio 1.9 (1.0-2.8); Alkaline Phosphatase 57 U/L (38-126); Aspartate Aminotransferase 26 IU/L (14-36); Bilirubin Total 0.4 mg/dL (0.2-1.3); Blood Urea Nitrogen 40 mg/dL (7-17); Calcium 9.3 mg/dL (8.4-10.2); Carbon Dioxide 23 mmol/L (22-32); Chloride 111 mmol/L (98-107); Cholesterol 203 mg/dL (140-199); Estimated Glomerular Filt Rate 44 mL/min (>60); Globulin 2.2 g/dL (1.7-4.1); Glucose 87 mg/dL (70-100); HDL Cholesterol 48 mg/dL (40-60); HEMOLYSIS < 15 (0-50); LDL Cholesterol Calculated 114 mg/dL (<100); Potassium 4.4 mmol/L (3.4-5.1); Sodium 142 mmol/L (137-145); Total Protein 6.4 g/dL (6.3-8.2); Triglycerides 203 mg/dL (35-150)
[2024-08-08 10:54] LABS: Thyroid Stimulating Hormone 0.151 uIU/mL (0.47-4.68)
== END ==
PROVIDERS: Family Provider Family Medicine; PCP Family Medicine; Referring Provider Internal Medicine Cardiovascular Disease; Visit Provider Internal Medicine Cardiovascular Disease
DX: E78.5 Hyperlipidemia, unspecified (principal); E03.9 Hypothyroidism, unspecified
CPT/HCPCS: 36415; 80053; 80061; 84443

== ENCOUNTER → 2024-08-23 16:50 | Outpatient (CLI) | payer OTHER, SELFPAY ==
--- NOTE | 2024-08-23 16:51 | DI.MG.S_ITS ---
MM screening mammo BI: 08/23/2024. BI-RADS: 1 CLINICAL: 59-year old female for bilateral screening mammogram. Tyrer-Cuzick lifetime risk of 14.2%. No personal or first-degree family history of breast cancer. Current reported family history of breast cancer: maternal aunt. History of ovarian cancer in one first-degree relative. PRIOR EXAMS 08/17/2023, 10/27/2021, 08/01/2020, 08/12/2018, 12/30/2015. MAMMOGRAPHY TECHNIQUE: 2D and 3D (tomosynthesis) digital mammographic views obtained, with additional images as needed for full coverage. Current study was also evaluated with a Computer Aided Detection (CAD) system. DENSITY C. The breasts are heterogeneously dense, which may obscure small masses. MAMMOGRAPHY FINDINGS Bilateral: No suspicious mass, asymmetry, microcalcification, or other abnormality seen. No significant change from comparison. IMPRESSION: * No evidence of malignancy. RECOMMENDATIONS Bilateral * Annual screening mammography. OVERALL ASSESSMENT CATEGORY BI-RADS-1: Negative. The [employer] recommends annual screening mammography beginning at age 40 for women with average risk of breast cancer. ELECTRONICALLY SIGNED: Naye John M.D. on 08/24/2024 at 09:35:15 AM PT Interpreting Station ID: [id number]
== END ==
LOC: MAMMO 16:51
PROVIDERS: Family Provider Family Medicine; PCP Family Medicine; Referring Provider Family Medicine; Visit Provider Family Medicine
DX: Z12.31 Encounter for screening mammogram for malignant neoplasm of breast (principal); Z80.3 Family history of malignant neoplasm of breast; Z80.41 Family history of malignant neoplasm of ovary; R92.333 Mammographic heterogeneous density, bilateral breasts
CPT/HCPCS: 77063; 77067

== ENCOUNTER → 2024-09-14 15:33 | Outpatient (CLI) | payer OTHER, SELFPAY ==
--- NOTE | 2024-09-14 15:36 | DI.RAD.S_ITS ---
PROCEDURE: XR LUMBAR SPINE MIN 4V INDICATIONS: BACK PAIN TECHNIQUE: 5 views of the lumbar spine were acquired, including bilateral oblique views. COMPARISON: [facility], , XR LUMBAR SPINE MIN 4V, 08/15/2020, 19:36. FINDINGS: Bones: 5 nonrib-bearing vertebrae are present. There is mild leftward curvature of lumbar spine with apex at L3 level. No vertebral body compression fractures. Mild degenerative endplate changes and loss of disc height throughout lumbar spine is seen more notably at L2-3 and L5-S1 levels. No suspicious bony lesions. Soft tissues: Overlying bowel gas pattern is normal. No suspicious soft tissue calcifications. Oblique images: No pars defects. IMPRESSION: Kbjd-go-rkjjuomy degenerative disc disease throughout lumbar spine more notably at L2-3 and L5-S1 levels. No acute vertebral body compression fracture. No gross pars defects or significant bony foraminal stenosis. Dictated by: Ab Saldana M.D. on 09/14/2024 at 16:11 Approved by: Ab Saldana M.D. on 09/14/2024 at 16:12
== END ==
PROVIDERS: Family Provider Family Medicine; PCP Family Medicine; Referring Provider Family Medicine; Visit Provider Family Medicine
DX: M47.816 Spondylosis without myelopathy or radiculopathy, lumbar region (principal); M51.26 Other intervertebral disc displacement, lumbar region; M51.369 Other intervertebral disc degeneration, lumbar region without mention of lumbar back pain or lower extremity pain; M51.379 Other intervertebral disc degeneration, lumbosacral region without mention of lumbar back pain or lower extremity pain
CPT/HCPCS: 72110

== ENCOUNTER → 2024-09-19 10:58 | Outpatient (CLI) | payer OTHER, SELFPAY ==
[2024-09-19 11:43] LABS: BUN Creatinine Ratio 20.4 (6-22); Blood Urea Nitrogen 22 mg/dL (7-17); Calcium 9.7 mg/dL (8.4-10.2); Carbon Dioxide 25 mmol/L (22-32); Chloride 109 mmol/L (98-107); Estimated Glomerular Filt Rate 59 mL/min (>60); Glucose 93 mg/dL (70-100); HEMOLYSIS < 15 (0-50); Sodium 141 mmol/L (137-145)
[2024-09-19 12:16] LABS: Thyroid Stimulating Hormone 1.89 uIU/mL (0.47-4.68)
== END ==
PROVIDERS: Family Provider Family Medicine; PCP Family Medicine; Referring Provider Family Medicine; Visit Provider Family Medicine
DX: E03.9 Hypothyroidism, unspecified (principal); N18.32 Chronic kidney disease, stage 3b
CPT/HCPCS: 36415; 80048; 84443

== ENCOUNTER → 2024-09-29 16:11 | Outpatient (CLI) | payer OTHER, SELFPAY ==
--- NOTE | 2024-09-29 16:12 | DI.MRI.S_ITS ---
PROCEDURE: MR LUMBAR SPINE WO CON INDICATIONS: Progressive lumbar stenosis and facet arthropathy at L2-3 TECHNIQUE: Noncontrast sagittal T1 spin echo and T2 fast echo, sagittal STIR, and T2 fast spin echo through the lumbar spine. In cases with scoliosis, additional coronal T2 fast spin echo may be performed. COMPARISON: [facility], CT, CT ABDOMEN PELVIS W CON, 08/18/2020, 7:07. [facility], MR, MR LUMBAR SPINE WO CON, 03/10/2019, 17:54. [facility], CR, XR LUMBAR SPINE MIN 4V, 09/14/2024, 15:43. (Additional prior imaging is not available for review from the archive at the time of this dictation.) FINDINGS: Image quality: Excellent. Alignment and Curvature: There is normal bony alignment. Bone Marrow: Marrow is of normal overall signal. No acute vertebral body compression fractures. Spinal Cord: Conus medullaris terminates at the L1 level. Visualized cord demonstrates normal signal and size. Paraspinous Soft Tissues: No paravertebral masses. Mild atrophy can be seen of right kidney. T12-L1: Normal appearance. L1-L2: Normal appearance. L2-L3: Moderate loss of disc height is seen. Loss of disc signal is seen. Moderate disc bulge is seen, which is eccentric to the right. There is a superimposed central disc osteophyte protrusion. Mild facet joint hypertrophy is seen. There is mild left-sided and at least moderate right-sided neural foraminal narrowing. Mild to moderate central canal narrowing is seen. These imaging findings have progressed compared to the prior study. L3-L4: The disc height and disk signal are relatively well-preserved. Mild to moderate generalized disc bulge is seen. Mild facet joint hypertrophy is seen. There is kgao-ew-uasimlbu left-sided and no significant right-sided neural foraminal narrowing. Mild central canal narrowing is seen. These imaging findings have progressed compared to the prior study. L4-L5: Sojg-gg-hevufhzt loss of disc height and disc signal can be seen. Moderate generalized disc bulge is seen. There is a superimposed central disc protrusion. There is a focal annular fissure seen posteriorly. Mild facet joint hypertrophy is seen. Mild bilateral neural foraminal narrowing is seen. Mild to moderate central canal narrowing is seen. These degenerative changes are worse than in 2019. L5-S1: Moderate loss of disc height is seen. Loss of disc signal is seen. Reactive marrow endplate changes are seen, which are hyperintense on T1-weighted and T2-weighted imaging and most consistent with fatty metaplasia (Modic type II changes). Moderate generalized disc bulge is seen. There is a superimposed central disc osteophyte protrusion. There is moderate right-sided neural foraminal narrowing. There is at least moderate left-sided neural foraminal narrowing, with a degree of compression upon the exiting left L5 nerve root. Mild central canal narrowing is seen. These degenerative changes are worse than on the prior MRI. IMPRESSION: Multiple levels of lumbar spine degenerative change can be seen, which have progressed compared to 2019. Additional findings: Mild atrophy of the right kidney Dictated by: Mat Agosto M.D. on 09/29/2024 at 17:27 Approved by: Mat Agosto M.D. on 09/29/2024 at 17:32
== END ==
PROVIDERS: Family Provider Family Medicine; PCP Family Medicine; Referring Provider Physical Medicine & Rehabilitation; Visit Provider Physical Medicine & Rehabilitation
DX: M47.816 Spondylosis without myelopathy or radiculopathy, lumbar region (principal); N26.1 Atrophy of kidney (terminal); M51.369 Other intervertebral disc degeneration, lumbar region without mention of lumbar back pain or lower extremity pain; M48.061 Spinal stenosis, lumbar region without neurogenic claudication; M51.379 Other intervertebral disc degeneration, lumbosacral region without mention of lumbar back pain or lower extremity pain; M48.07 Spinal stenosis, lumbosacral region; M25.78 Osteophyte, vertebrae
CPT/HCPCS: 72148

== ENCOUNTER 2024-10-10 14:25 | Outpatient (CLI) | payer OTHER, SELFPAY ==
[2024-10-10] VITALS (9 sets, daily range): BP systolic 115–130; BP diastolic 56–69; PULSE 53–60; RESP 15–19; TEMP 36.3; O2SAT 94–99
[2024-10-10] MEDS: MIDAZOLAM 2 MG/2 ML VIAL IV (15:27)
[2024-10-10] MEDS: BUPIVACAINE 0.5% (PF) 10 ML VIAL 5 ML INJ (15:33)
[2024-10-10] MEDS: iopamidoL 15 ML VIAL 3 ML INJ (15:33)
[2024-10-10] MEDS: LIDOCAINE 1% 20 ML INJ (15:35)
--- NOTE | 2024-10-10 15:44 | PM.PROC.IR.1 ---
Date/Time/Diagnoses Date of procedure: 10/10/24 Time of procedure: 15:44 Pre-procedure diagnosis: FACET ARTHROPATHY Post-procedure diagnosis: same Procedure Notes Procedure: 1. BILATERAL L1, L2, L3 DIAGNOSTIC MB BLOCKS Indications: Nancy is referred by Dr. Shepard for treatment of Bilateral Axial LBP. Physician: Zaheer Mcnamara Total Fluoroscopy time (seconds): 10 Total sedation minutes: 14 Complications: none Procedure in detail & Post-procedure care: DESCRIPTION OF PROCEDURE Fluoroscopically guided, contrast-controlled bilateral L1, L2, L3 medial branch blocks with 0.5cc of 0.5% Marcaine. Following review of allergy and review of potential side effects and complications, including, but not necessarily limited to, infection, allergic reaction, local tissue breakdown, nerve injury, paralysis, stroke and possible , the patient indicated that the patient understood and agreed to proceed. An informed consent document was signed by the patient, witnessed by a nurse, and placed in the patient's chart. After review of previous anaesthesic history and IV conscious sedation the patient was deemed safe to proceed with today's procedure with IV conscious sedation as ASA class II designation. Safety time-out was performed to confirm patient ID, procedure to be performed and site of procedure. IV sedation was accomplished with a combination of 2mg of Versed was administered by the RN after DO order, titrated to patient comfort during the course of the procedure while the patient remained responsive to all verbal commands In the prone position, following sterile prep and drape of the lumbar region, the right L1, L2, L3 anatomical location of the medial branch of the dorsal ramus was identified fluoroscopically. Subsequently an anesthetic skin wheal using 1% lidocaine solution was initiated at each of the anatomical spots. Subsequently then a 22-gauge 3.5-inch spinal needle was atraumatically introduced and advanced under fluoroscopic guidance at each of the corresponding sites at the right L1, L2, L3 MB. After negative aspiration, 0.2cc of Isovue 200 was injected, confirming placement without vascular or intrathecal uptake. Subsequently then 0.5cc of 0.5% Marcaine solution was injected at each of the corresponding sites at the right L1, L2, L3 medial branch locations. The identical procedure was replicated on the left. The patient tolerated the procedure well without signs or symptoms of complications. The patient tolerated the procedure well without signs or symptoms of complications prior to transfer to the recovery area continued monitoring without incident. Post-procedure, the patient was monitored initiating provocative activities to measure the amount of relief from block of the facetogenic pain. The patient reported a VAS of 7 prior to the procedure and a post-procedure VAS of 1. It has been a pleasure to assist in the diagnostic and therapeutic care of your patient. POST OP INSTRUCTIONS The patient was provided with a Pain Log to complete over the next several hours and subsequent days prior to the patient's follow up with the ordering physician. If the patient has product inspection coordinator relief to the solution applied, then they may be a candidate for medial branch rhizotomy. The patient is aware, was provided, once again, with a Pain Log and will follow up with the referring physician for review and clinical correlation
== END 2024-10-10 16:11 | disposition home or self-care (01) ==
LOC: RAD 14:25
PROVIDERS: Family Provider Family Medicine; PCP Family Medicine; Referring Provider Physical Medicine & Rehabilitation; Visit Provider Physical Medicine & Rehabilitation
DX: M47.816 Spondylosis without myelopathy or radiculopathy, lumbar region (principal)
CPT/HCPCS: 64493; 64494; 99152; J2250

== ENCOUNTER → 2025-01-18 09:21 | Outpatient (CLI) | payer OTHER, SELFPAY ==
[2025-01-18 10:55] LABS: Blood Urea Nitrogen 21 mg/dL (7-17); Calcium 9.7 mg/dL (8.4-10.2); Carbon Dioxide 26 mmol/L (22-32); Chloride 107 mmol/L (98-107); Estimated Glomerular Filt Rate 57 mL/min (>60); Glucose 91 mg/dL (70-99); HEMOLYSIS < 15 (0-50); Potassium 4.0 mmol/L (3.4-5.1); Sodium 141 mmol/L (137-145)
[2025-01-18 11:26] LABS: TSH w/ Reflex to FT4 0.20 uIU/mL (0.47-4.68)
[2025-01-18 13:40] LABS: Free T4, Direct Thyroxine 1.64 ng/dL (0.78-2.19)
== END ==
PROVIDERS: Family Provider Family Medicine; PCP Family Medicine; Referring Provider Family Medicine; Visit Provider Family Medicine
DX: E03.9 Hypothyroidism, unspecified (principal); N18.32 Chronic kidney disease, stage 3b
CPT/HCPCS: 36415; 80048; 84439; 84443

== ENCOUNTER → 2025-02-19 12:15 | Outpatient (CLI) | payer OTHER, SELFPAY ==
[2025-02-19 13:45] LABS: Appearance Urine UA CLEAR; Bilirubin Urine UA NEGATIVE (NEGATIVE); Color Urine UA YELLOW; Glucose Urine UA NEGATIVE (Negative); Ketones Urine UA NEGATIVE (NEGATIVE); Leukocyte Esterase Urine UA 1+ (NEGATIVE); Nitrite Urine UA NEGATIVE (Negative); Occult Blood Urine UA NEGATIVE (Negative); Protein Urine UA NEGATIVE (Negative); Specific Gravity Urine UA <=1.005 (1.000-1.035); Urobilinogen Urine UA 0.2 E.U./dL (0.2); pH Urine UA 5.5 (4.5-8.0)
[2025-02-19 13:48] LABS: Culture Indicated Urine Specimen Cultured
== END ==
PROVIDERS: PCP Family Medicine; Referring Provider Family Medicine; Visit Provider Family Medicine
DX: R82.90 Unspecified abnormal findings in urine (principal); R39.198 Other difficulties with micturition
CPT/HCPCS: 81001; 87077; 87086; 87186

== ENCOUNTER 2025-04-05 10:33 | Outpatient (CLI) | payer OTHER, SELFPAY ==
[2025-04-05] VITALS (12 sets, daily range): BP systolic 113–141; BP diastolic 53–75; PULSE 50–66; RESP 9–18; TEMP 36.2; O2SAT 95–99
[2025-04-05] MEDS: MIDAZOLAM 2 MG/2 ML VIAL IV (12:00)
[2025-04-05] MEDS: fentaNYL 100 MCG/2 ML INJ 50 MCG IV ×2 (12:03→12:08)
[2025-04-05] MEDS: LIDOCAINE 1% 20 ML 5 ML INJ (12:08)
[2025-04-05] MEDS: MIDAZOLAM 2 MG/2 ML VIAL 1 MG IV (12:18)
--- NOTE | 2025-04-05 12:41 | P.PCN_ITS ---
Date/Time/Diagnoses Date of procedure: 04/05/25 Time of procedure: 12:41 Pre-procedure diagnosis: 1. RECALCITRANT FACET ARTHROPATHY Post-procedure diagnosis: same Procedure Notes Procedure: 1. BILATERAL L1, L2, L3 MEDIAL BRANCH RADIOFREQUENCY NEUROTOMY Indications: Nancy is referred by Dr. Giordano for treatment of facet arthropathy. Physician: Zaheer Mcnamara Total Fluoroscopy time (seconds): 18 Total sedation minutes: 35 Complications: none Procedure in detail & Post-procedure care: DESCRIPTION OF PROCEDURE Bilateral L3, L4 and L5 medial branch radiofrequency neurotomy The patient is well known to this clinic having undergone previous facet injections with good but temporary relief. The patient has experienced appropriate, concordant relief with previous facet and median branch blocks but the patient's pain has been recalcitrant to further conservative measures. Therefore, based upon the patient's relief and persistent symptoms, the patient is considered an appropriate candidate for facet rhizotomy. All of the patient's questions regarding the risks versus benefits of the procedure, including, but not limited to, bleeding, infection, temporary as well as lasting nerve injury, paralysis, stroke, and , as well treatment alternatives were answered to satisfaction. After obtaining informed consent, denial of pertinent drug allergies, as well as being made aware of the potential risks of bleeding, infection, spinal cord trauma, paralysis, temporary and permanent nerve damage, seizure, stroke, and possible , the patient was brought to the fluoroscopy suite and positioned prone on the fluoroscopy table. After review of previous anaesthesic history and IV conscious sedation the patient was deemed safe to proceed with today's procedure with IV conscious sedation as ASA class II designation. Safety time-out was performed to confirm patient ID, procedure to be performed and site of procedure. IV sedation was accomplished with a combination of 3mg of Versed and 100mcg of Fentanyl were administered by the RN after DO order, titrated to patient comfort during the course of the procedure while the patient remained responsive to all verbal commands. The lumbar region was prepped in usual sterile fashion and covered with a fenestrated drape in the usual sterile fashion. Appropriate monitors applied including pulse oximeter, pulse, and blood pressure for regular monitoring throughout the procedure. After local infiltration using 1% lidocaine, under fluoroscopic guidance, a 10- cm RF insulated needle with a 10-mm active tip was positioned parallel to the junction of the right the superior articulating process where the L1 medial branch resides. Needle placement was confirmed with motor stimulation of .5v on the right which produced local stimulation without radicular component. The stimulation was then increased to 2v with, once again, only local multifidus stimulation without radicular component. The needle was then removed and the identical procedure was performed along the length of the right L2 medial branch with motor stimulation at .7v on the right. The identical procedure was once again performed along the length of the right L3 and medial branch with motor stimulation of .5v on the right. The medial branches were then anesthetised with 0.5% marcaine. This was then followed by two discreet lesions performed at 80 degrees Celsius for 90 seconds each. The identical procedures were repeated on the left. The patient tolerated the procedure well without signs or symptoms of complications prior to transfer to the recovery area continued monitoring without incident. The patient was then transferred to the recovery area where they were observed for an appropriate period of time after the injection. The patient reported a VAS score of 9 prior to the procedure and a post-procedure VAS of 0. POST OP INSTRUCTIONS The patient was provided a Pain Log to continue to record the patient's response to the target-specific procedure prior to the patient's follow-up visit with the referring physician. Additionally, specific post-injection care instructions and a contact number to our office were provided if concerns arise regarding possible complications associated with the procedure are suspected.
== END 2025-04-05 13:31 | disposition home or self-care (01) ==
LOC: RAD 10:34
PROVIDERS: PCP Family Medicine; Referring Provider Physical Medicine & Rehabilitation; Visit Provider Physical Medicine & Rehabilitation
DX: M47.816 Spondylosis without myelopathy or radiculopathy, lumbar region (principal)
CPT/HCPCS: 64635; 64636; 99152; 99153; J2250; J3010